=== PATIENT | female | born 1950 | race Caucasian/White ===

== ENCOUNTER → 2019-08-29 17:43 | Outpatient (CLI) | payer MEDICARE, OTHER, SELFPAY ==
--- NOTE | 2019-08-29 18:04 | MRI_ITS ---
STUDY: MRI RIGHT REARFOOT WITHOUT CONTRAST REASON FOR EXAM: Female, 69 years old. Heel spur. Sharp pain for 4 months. TECHNIQUE: Standardized fat and water weighted pulse sequences were obtained in all 3 orthogonal planes. COMPARISON: None. FINDINGS: Acute on chronic moderate/severe plantar fasciitis (sagittal image 14 series 3) with calcaneal bone marrow edema/contusion. No evidence of plantar fascial disruption. Slightly elongated plantar spur. Small Achilles enthesophyte. No acute fracture. No dislocation. No bone destruction. Mild posterior tibialis tenosynovitis. Normal flexor digitorum longus tendon. Normal flexor hallucis longus tendon. Normal peroneus longus and brevis tendons. Normal tibialis anterior tendon. Normal extensor hallucis longus tendon. Normal extensor digitorum longus tendons. Normal distal tibiofibular syndesmotic ligamentous complex. Normal lateral ligamentous complex. Normal subtalar ligaments and sinus tarsi. Mild chronic deltoid ligament sprain. Normal plantar calcaneonavicular (spring) ligament. Normal tibiotalar articulation. Normal talar dome. Normal subtalar articulations. Normal talonavicular articulation. Mild calcaneocuboid arthrosis (sagittal image 7 series 3). Normal navicular-cuneiform articulations. 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
== END ==
PROVIDERS: Family Provider Family Medicine; PCP Family Medicine; Referring Provider Podiatrist; Visit Provider Podiatrist
DX: M72.2 Plantar fascial fibromatosis (principal); M77.31 Calcaneal spur, right foot
CPT/HCPCS: 73718

== ENCOUNTER → 2019-09-09 16:11 | Outpatient (CLI) | payer MEDICARE, OTHER, SELFPAY ==
[2019-09-09 17:51] LABS: AST(SGOT) 21 U/L (15-37); Alanine Aminotransfer ALT/SGPT 23 U/L (13-56); Albumin, Serum 3.6 g/dL (3.2-5.0); Alkaline Phosphatase 112 U/L (45-117); Anion Gap 5 (5-15); BUN 19 mg/dL (7-18); BUN/Creat Ratio 18.6 RATIO (10-20); Calcium,Total 8.6 mg/dL (8.5-10.1); Chloride 110 mmol/L (98-107); Creatinine, Serum 1.02 mg/dL (0.55-1.02); EST Glomerular Filtration Rate 57 mL/min (>60); Est Glom Filt Rate - Afr Amer 69 mL/min (>60); Globulin 3.7 g/dL (2.2-4.2); Glucose 82 mg/dL (74-106); Potassium 4.1 mmol/L (3.5-5.1); Protein, Total 7.3 g/dL (6.4-8.2); Sodium Level 141 mmol/L (136-145)
[2019-09-09 17:58] LABS: Absolute Lymphocyte Count 2.57 X10^3/uL (0.83-4.51); Absolute Neutrophil Count 2.4 X10^3/uL (2.0-7.7); Basophil# 0.03 X10^3/uL; Basophil% 0.5 % (0-1); Eosinophil# 0.11 X10^3/uL; Hematocrit 43.3 % (37-47); Hemoglobin 13.9 g/dL (12.0-15.0); Lymphocyte # 2.57 X10^3/ul (4.0); Lymphocyte % 45.7 % (19-41); Mean Corp Hgb Conc 32.1 g/dL (32-36); Mean Corpuscular Hgb 28.9 pg (27.0-32.0); Mean Platelet Vol. 10.9 fl (6.2-12.0); Monocyte# 0.51 X10^3/uL; Monocyte% 9.1 % (0-10); NRBC Flagged by Analyzer 0 % (0-5); Neutrophil # 2.37 X10^3/uL (2.7-7.7); Neutrophil % 42.2 % (47-70); Platelet Count 166 K/mm3 (150-450); RBC Distribution Width CV 14.4 % (11.6-14.6); RBC Distribution Width SD 47.5 fl (35.1-43.9); Red Blood Count 4.81 M/mm3 (4.2-5.4); White Blood Count 5.6 K/mm3 (4.4-11.0)
== END ==
PROVIDERS: Family Provider Family Medicine; PCP Family Medicine; Referring Provider Family Medicine; Visit Provider Family Medicine
DX: Z01.818 Encounter for other preprocedural examination (principal)
CPT/HCPCS: 36415; 80053; 85025

== ENCOUNTER 2019-09-13 12:30 | Day surgery (SDC) | payer MEDICARE, OTHER, SELFPAY ==
[2019-09-13] VITALS (8 sets, daily range): BP systolic 99–130; BP diastolic 39–72; PULSE 58–64; RESP 15–18; TEMP 36.6–36.7; O2SAT 93–99; BMI 31.2
[2019-09-13] MEDS: Lactated Ringers 1,000 ML 100 ML IV (13:02)
--- NOTE | 2019-09-13 14:00 | RAD_ITS ---
STUDY: X-RAY - RIGHT CALCANEUS REASON FOR EXAM: Female, 69 years old. PLANTAR FASCIOTOMY WITH RESECTION OF INFRACALCANEAL SPUR TECHNIQUE: 1 view(s) of the calcaneus were obtained. COMPARISON: None. FINDINGS: Normal visualized calcaneus. There is a plantar calcaneal spur. There is enthesophyte formation of the posterior superior calcaneus at the site of insertion of the Achilles tendon. There is no demonstrated fracture. RAD/Calcaneus min 2 Views IMPRESSION: Plantar calcaneal spur and enthesophyte as described above, otherwise normal x-ray examination of the calcaneus. Electronically Signed: Sivan Dumont MD at 0:48 EST , Service support ,
--- NOTE | 2019-09-13 14:05 | DCINST_ITS ---
Discharge Diet: Light diet - advance as tolerated Discharge Activity: May not drive while taking narcotic pain medications., Use Walker Weight Bearing Status: No weight bearing - No weightbearing left foot Keep extremity elevated above heart level: Left Leg - Keep left foot elevated with pillows for at least 50 minutes of every hour Call your doctor if your incision/area has: Continuous Slow Oozing, Sudden Increased Bleeding, Increased Redness, Foul Smelling Discharge Call your doctor if you observe: Fever of 101 or Higher, Shortness of breath, Chest pain, Increased palpitations (irregular heartbeat), Calf discomfort, Uncontrolled pain Cleanse incision/area with: Do not get Incision Wet, Keep Dressing Clean & Dry Allergies/Adverse Reactions: Allergies latex Allergy (Verified 09/13/19 12:48) Rash Sulfa (Sulfonamide Antibiotics) Allergy (Verified 09/13/19 12:48) Itching morphine Adverse Reaction (Verified 09/13/19 12:48) confusion Medications to take at Discharge Aspirin [Aspirin, Baby] 81 mg PO DAILY@0800 09/12/19 Atorvastatin Calcium [Lipitor] 20 mg PO DAILY 09/12/19 Metoprolol Tartrate [Lopressor (Beta Jim)] 25 mg PO DAILY 09/12/19 Omeprazole 40 mg PO DAILY 09/12/19 Sertraline HCl [Zoloft] 100 mg PO DAILY 09/12/19 Hydrocodone/Acetaminophen [[place] 5-325 Tablet] 1 - 2 ea PO Q6H PRN PRN 3 Days #24 tab 09/13/19 The following prescriptions were given: Hydrocodone/Acetaminophen [[place] 5-325 Tablet] 1 - 2 ea PO Q6H PRN PRN 3 Days #24 tab PRN Reason: Pain Score 1-10/10 Prescription Printed Primary Care Physician: Shaun Lemus MD [Primary Care Provider] - Test Results: Test results from this visit will be discussed in further detail at your follow- up appointment, if applicable. Please Follow Up With: Denis Fam DPM When: 1 week, sooner if needed
[2019-09-13] MEDS: Cefazolin 2 GM in 0.9% Normal Saline 100 ML IV (14:10)
[2019-09-13] MEDS: Bupivacaine Mpf 0.5% 30 ML VIAL (14:20)
--- NOTE | 2019-09-13 14:50 | RAD_ITS ---
STUDY: X-RAY - RIGHT CALCANEUS REASON FOR EXAM: Female, 69 years old. POST OP PLANTAR FASCIOTOMY W/RESECTION OF INFRACALCANEAL SPUR TECHNIQUE: 2 view(s) of the calcaneus were obtained. COMPARISON: None. FINDINGS: Irregularity involving the inferior aspect of the calcaneus at the site of previous plantar calcaneal spur and suggestion of interval partial resection. Otherwise normal visualized calcaneus. There is enthesophyte formation of the posterior superior calcaneus at the site of insertion of the Achilles tendon. There is no demonstrated fracture. RAD/Calcaneus min 2 Views IMPRESSION: Postoperative changes as described above with suggestion of partial resection at the level of the previously seen plantar calcaneal spur. Electronically Signed: Sivan Dumont MD at 0:48 EST , Service support ,
--- NOTE | 2019-09-13 14:51 | OP.PCM_ITS ---
Report of Operation Date of Procedure: 09/13/19 Pre-Operative Diagnosis: Plantar fasciitis, right. 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 Bryant Type of Anesthesia:: Local MAC Specimen's removed: None Estimated Blood Loss (mL): 1mL Description of Procedure: Indications: This is a 69 year old female with chronic plantar fasciitis and heel spur syndrome on the right foot despite extensive nonsurgical care. She has elected to undergo surgical intervention - plantar fasciotomy with resection of infracalcaneal heel spur. This was discussed with her in detail, reviewed the possible benefits vs risks, goals, expectations, alternative options, and typical healing/post op recovery. The consent forms were reviewed with her, and she freely signed them. All of her questions were answered. No guarantees or wa rranties were given nor implied. Operative Procedure: The patient was brought back into the operating room and was placed on the operating room table in the supine position. She was carefully secured to the operating room table with a safety belt around the waist. A time out was performed and the patient was properly identified and the surgical plan was confirmed. The patient received 2 grams of IV Cephazolin for antibiotic prophylaxis. A well padded pneumatic tourniquet was applied around the patient's right ankle. The patient received MAC anesthesia per the anesthesiologist, and a total of 20mL of 0.5% Bupivacaine plain was given as a regional nerve block around the heel surgical site after the overlying skin was cleansed with 70% Isopropyl alcohol. The right foot was scrubbed, prepped, draped in the usual aseptic fashion. The right foot was elevated for 3 minutes and the ankle pneumatic tourniquet was inflated to 250mmHg. The infracalcaneal spur was visualized on intra operative f luoroscopy, image was saved. A skin incision was made to the medial hindfoot at the level of the plantar fascia and infracalcaneal spur, careful dissection was completed down through the subcutaneous tissue layer. A plane was created superiorly and inferiorly around the plantar fascia and the medial 50% of the plantar fascia was released via a plantar fasciotomy. It was noted there was significant thickening of the plantar fascia with fibrosis consistent with chronic plantar fasciitis. The infracalcaneal spur was felt, and was carefully resected using a powered rasp. Resection of the infracalcaneal spur was confirmed using intraoperative fluoroscopy. Images pre and post infracalcaneal spur resection were saved. The site was flushed out with copious amounts of normal saline solution. The skin was reapproximated using 3-0 Nylon. The pneumatic tourniquet was deflated (total tourniquet time was 21 minutes), and there was immediate return of warmth and perfusion to the foot and to all toes on the foot with normal temperature gradient and CFT < 2 seconds to all toes. Hemostasis was achieved. A dressing was applied which consisted of Betadine soaked adaptic, 4x4 gauze, Kerlix and paola bandage, being sure to apply it not to tight. The patient tolerated the above operative procedure well at the anesthesia well with no complication. The patient was transported to the recovery room with vital signs stable and in good condition. Post operative orders were placed. Post operative instructions were reviewed and dispensed verbal and written. No weightbearing right foot, keep right foot elevated for at least 50 minutes of every hour, keep dressing clean, dry and intact. Prescription for Siloam was provided for post operative pain control. She is to follow up within 1 week or sooner if needed. Grafts/Implants Used: None - Complications None
== END 2019-09-13 16:14 | disposition home or self-care (01) ==
LOC: SDC 12:31 → AC 12:32
PROVIDERS: Family Provider Family Medicine; PCP Family Medicine; Referring Provider Podiatrist; Visit Provider Podiatrist
PROC: (CPT 28008; principal; 2019-09-13 13:45)
DX: M72.2 Plantar fascial fibromatosis (principal); M77.31 Calcaneal spur, right foot; I27.20 Pulmonary hypertension, unspecified; K58.9 Irritable bowel syndrome, unspecified; Z79.899 Other long term (current) drug therapy; Z79.82 Long term (current) use of aspirin; K21.9 Gastro-esophageal reflux disease without esophagitis; E78.00 Pure hypercholesterolemia, unspecified; F41.9 Anxiety disorder, unspecified; F32.9 Major depressive disorder, single episode, unspecified
CPT/HCPCS: 28119; 73650; 76000; J7120; J2405

== ENCOUNTER → 2020-05-20 10:45 | Outpatient (CLI) | payer MEDICARE, OTHER, SELFPAY ==
[2019-09-13 12:48] VITALS: BMI 31.2
--- NOTE | 2020-05-20 10:52 | BI_ITS ---
MAMMOGRAPHY - BILATERAL SCREENING REASON FOR EXAM: Female, 70 years old. Routine annual screening examination. PERTINENT HISTORY: Non-contributory. TECHNIQUE: Digital bilateral breast fady (3D mammographic acquisition) in the CC and MLO projections. 2-D mediolateral oblique (MLO) and craniocaudad (CC) views of both breasts were obtained. CAD: Full Field Digital Mammography with Computer Added Detection was performed. COMPARISON: Comparison is made with prior abdomen examination dated 01/09/2019. FINDINGS: Breast Composition: The breasts are almost entirely fatty. There are no dominant masses or suspicious calcifications. Stable small benign appearing bilateral axillary lymph nodes. No other significant abnormalities are identified. There has been no significant change since the prior study. BI/SCREEN MAMM (CAD) W/FADY BILAT IMPRESSION: Stable bilateral screening mammogram. Yearly follow-up mammogram recommended. (A) ASSESSMENT CATEGORY: BIRADS Category 2: Benign. A letter regarding these results will be sent to the patient by the facility within 30 days. Approximately 10% of breast cancers are not detected by mammography. A normal mammogram should not delay biopsy of a clinically suspicious abnormality. [id number] Electronically Signed: Tim Bhardwaj, at 12:37 EDT , Service support ,
== END ==
PROVIDERS: PCP Family Medicine; Referring Provider Family Medicine; Visit Provider Family Medicine
DX: Z12.31 Encounter for screening mammogram for malignant neoplasm of breast (principal)
CPT/HCPCS: 77063; 77067

== ENCOUNTER → 2020-12-30 | Outpatient (CLI) | payer MEDICARE, SELFPAY ==
[2019-09-13 12:48] VITALS: BMI 31.2
== END | disposition home or self-care (01) ==
LOC: LABSPEC 15:23
PROVIDERS: PCP Family Medicine; Referring Provider Internal Medicine Gastroenterology; Visit Provider Internal Medicine Gastroenterology
DX: Z11.52 Encounter for screening for COVID-19 (principal)
CPT/HCPCS: 87635; C9803; U0002

== ENCOUNTER → 2023-01-12 | Outpatient (CLI) | payer MEDICARE, SELFPAY ==
--- NOTE | 2023-01-12 15:25 | BD_ITS ---
STUDY: DUAL ENERGY X-RAY ABSORPTIOMETRY / DXA REASON FOR EXAM: Female, 72 years old. BASE LINE PRE AI THERAPY TECHNIQUE: Bone Mineral Density (BMD) measurements of lumbar spine and bilateral hips were obtained. COMPARISON: None. FINDINGS: Lumbar Spine (L1-L4): g/cm2 (1.168) / T-score (1.4) / Z-score (3.5) Findings are suggestive of normal bone density with a low fracture risk. Left Femur Total: g/cm2 (0.939) / T-score (0.0) / Z-score (1.5) Left Femoral Neck: g/cm2 (0.749) / T-score (-0.9) / Z-score (0.9) Right Femur Total: g/cm2 (0.901) / T-score (-0.3) / Z-score (1.2) Right Femoral Neck: g/cm2 (0.791) / T-score (-0.5) / Z-score (1.3) BD/Dexa Bone Density Study IMPRESSION: The patient is considered normal as outlined below according to World [place] Organization (WHO) criteria with a low fracture risk. Reference Information: The T-score is the number of standard deviations above or below the standard which is normal for young adults at their peak bone mineral density. The World Health Organization (WHO) interprets the T-scores as follows: Above -1 Normal bone density Between -1 and -2.5 Osteopenia Equal to / or below -2.5 Osteoporosis As a practical clinical guideline, osteopenia may be graded as follows: Mild -1 through -1.5 Moderate -1.6 through -2.0 Severe -2.1 through -2.4 The Z-score is the number of standard deviations above or below age-matched controls. A Z-score of less than -1.5 would be considered abnormal. References: 1. NIH Osteoporosis and Related Bone Diseases www osteo.org 2. International Society for Clinical Densitometry www iscd.org 3. National Osteoporosis Foundation www nof.org Electronically Signed: Tim Bhardwaj MD at 15:21 EDT ,
== END | disposition home or self-care (01) ==
PROVIDERS: PCP Family Medicine; Referring Provider Internal Medicine Hematology & Oncology; Visit Provider Internal Medicine Hematology & Oncology
DX: Z78.0 Asymptomatic menopausal state (principal)
CPT/HCPCS: 77080

== ENCOUNTER → 2023-05-26 | Outpatient (CLI) | payer MEDICARE, SELFPAY ==
--- NOTE | 2023-05-26 09:01 | BI_ITS ---
MAMMOGRAPHY - UNILATERAL DIAGNOSTIC: LEFT BREAST REASON FOR EXAM: Female, 73 years old. 2 month history of left breast lump. PERTINENT HISTORY: Personal history of breast cancer. Prior right mastectomy. TECHNIQUE: Digital unilateral breast neal (3D mammographic acquisition) in the CC and MLO projections. 2-D mediolateral oblique (MLO) and craniocaudad (CC) views of both breasts were obtained. CAD: Full Field Digital Mammography with Computer Added Detection was performed. COMPARISON: Comparison is made with prior study dated May 20, 2020. FINDINGS: Breast Composition: The breasts are almost entirely fatty. There are no dominant masses or suspicious calcifications. No other significant abnormalities are identified. There has been no significant change since the prior study. BI/DIAG MAMM W/CAD, UNILAT IMPRESSION: Stable unilateral diagnostic mammogram. With the patient''s history of a palpable lump in the slightly upper anterior medial aspect of the left breast, correlation with recommended. ASSESSMENT CATEGORY: BIRADS Category 0: Incomplete. Need additional imaging evaluation. A letter regarding these results will be sent to the patient by the facility within 30 days. Approximately 10% of breast cancers are not detected by mammography. A normal mammogram should not delay biopsy of a clinically suspicious abnormality. Electronically Signed: Tim Bhardwaj MD at 10:47 EDT ,
--- NOTE | 2023-05-26 09:01 | US_ITS ---
STUDY: ULTRASOUND BREAST - LEFT REASON FOR EXAM: Female, 73 years old. Palpable lump left breast. TECHNIQUE: Axial and longitudinal images of the LEFT breast were performed with a high resolution ultrasound transducer. # OF IMAGES: 13 COMPARISON: Comparison is made with prior mammogram dated May 20, 2020 and May 26, 2023. FINDINGS: LEFT Breast: The upper medial aspect of the left breast was examined by ultrasound. No sonographic abnormality is seen. US/Breast Limited Unilateral IMPRESSION: No sonographic abnormality is seen. ASSESSMENT CATEGORY: BIRADS Category 1: Negative. A letter regarding these results will be sent to the patient by the facility within 30 days. Electronically Signed: Tim Bhardwaj MD at 14:05 EDT ,
== END | disposition home or self-care (01) ==
LOC: OPBI 09:00
PROVIDERS: PCP Family Medicine; Referring Provider Nurse Practitioner Family; Visit Provider Nurse Practitioner Family
DX: C50.911 Malignant neoplasm of unspecified site of right female breast (principal); N63.20 Unspecified lump in the left breast, unspecified quadrant; R92.8 Other abnormal and inconclusive findings on diagnostic imaging of breast
CPT/HCPCS: 76642; 77061; 77065; G0279

== ENCOUNTER → 2024-05-27 | Outpatient (CLI) | payer MEDICARE, SELFPAY ==
--- NOTE | 2024-05-27 14:13 | BI_ITS ---
MAMMOGRAPHY - UNILATERAL SCREENING: LEFT BREAST REASON FOR EXAM: Female, 74 years old. Routine annual screening examination (unilateral). PERTINENT HISTORY: Personal history of breast cancer. Prior right mastectomy. TECHNIQUE: Digital unilateral breast fady (3D mammographic acquisition) in the CC and MLO projections. 2-D mediolateral oblique (MLO) and craniocaudad (CC) views of both breasts were obtained. CAD: Full Field Digital Mammography with Computer Added Detection was performed. COMPARISON: Comparison is made with prior study dated May 26, 2023 and May 20, 2020. FINDINGS: Breast Composition: The breasts are almost entirely fatty. There are no dominant masses or suspicious calcifications. No other significant abnormalities are identified. There has been no significant change since the prior study. BI/SCREEN MAMM (CAD) W/FADY UNI L IMPRESSION: Stable unilateral screening mammogram. Yearly follow-up mammogram recommended. (A) ASSESSMENT CATEGORY: BIRADS Category 1: Negative. A letter regarding these results will be sent to the patient by the facility within 30 days. Approximately 10% of breast cancers are not detected by mammography. A normal mammogram should not delay biopsy of a clinically suspicious abnormality. [id number] Electronically Signed: Tim Bhardwaj MD at 8:24 EDT ,
== END | disposition home or self-care (01) ==
LOC: OPBI 14:13
PROVIDERS: PCP Family Medicine; Referring Provider Internal Medicine Hematology & Oncology; Visit Provider Internal Medicine Hematology & Oncology
DX: Z12.31 Encounter for screening mammogram for malignant neoplasm of breast (principal); Z85.3 Personal history of malignant neoplasm of breast
CPT/HCPCS: 77063; 77067

== ENCOUNTER → 2024-12-18 | Outpatient (CLI) | payer MEDICARE, SELFPAY ==
--- NOTE | 2024-12-18 17:32 | CT_ITS ---
PROCEDURE: CHEST WITH CONTRAST 12/18/2024 REASON FOR EXAM: EXERTIONAL DYSPNEA; H/O BREAST CANCER TECHNIQUE: Prone and supine chest CT with intravenous contrast, high resolution CT (HRCT) protocol. Coronal and Sagittal reconstruction series were provided. CONTRAST: Isovue 370 VOLUME: 69 mL One or more dose reduction techniques were used (e.g., Automated exposure control, adjustment of the mA and/or kV according to patient size, use of iterative reconstruction technique). RADIATION DOSE SUMMARY: CTDlvol: 18.2 mGy DLP: 663.68 mGycm COMPARISON: Limited comparison with prior outside examination dated October 24, 2022. The images were not of good quality. FINDINGS: Hardware: Prior midline sternotomy. The patient is status post right mastectomy. Lymph nodes: No mediastinal hilar or axillary lymphadenopathy. Heart and Vasculature: Coronary artery calcifications are noted. Lungs and Airways: The lungs are normally expanded and clear. No septal thickening nodules or abnormal pulmonary opacities. Pleura: Unremarkable Upper Abdomen: Unremarkable Bones: Bone windows are unremarkable. CT/Chest WITH Contrast IMPRESSION: Coronary artery calcification (CAC) is is present No acute abnormality is seen. Reading Location: [place] [id number]
== END | disposition home or self-care (01) ==
LOC: CT 17:32
PROVIDERS: PCP Family Medicine; Referring Provider Nurse Practitioner Family; Visit Provider Nurse Practitioner Family
DX: R06.09 Other forms of dyspnea (principal); Z85.3 Personal history of malignant neoplasm of breast
CPT/HCPCS: 71260; Q9967

== ENCOUNTER → 2025-06-04 | Outpatient (CLI) | payer MEDICARE, SELFPAY ==
--- NOTE | 2025-06-04 14:41 | BD_ITS ---
PROCEDURE: DEXA BONE DENSITY STUDY 06/04/2025 REASON FOR EXAM: SCREENING FOR OSTEOPORSIS F, age 75 y/o . Postmenopausal. TECHNIQUE: Procedure Code: BDDBD Modality: DX Procedure: DEXA BONE DENSITY STUDY COMPARISON: January 12, 2023 FINDINGS: BMD and T-SCORES Lumbar spine: 1.073 g/cm2, T-score 0.5 Levels: L1 through L4 Change from prior: Loss of 8.2%. Left femoral neck: 0.710 g/cm2, T-score -1.3 Femoral neck comparison data not recommended for monitoring change. Left total hip: 0.921 g/cm2, T-score -0.2 Change from prior: Loss of 1.9%. Right femoral neck: 0.715 g/cm2, T-score -1.2 Femoral neck comparison data not recommended for monitoring change. Right total hip: 0.868 g/cm2, T-score -0.6 Change from prior: Loss of 3.7%. The World Health Organization has defined the following categories based on bone density: Normal bone density: T-score equal to or greater than -1.0 Osteopenia: T-score between -1.0 and -2.5 Osteoporosis: T-score equal to or less than -2.5 FRAX (or Comparable) Fracture Risk Assessment: 10 Year Probability of Fracture: Major Osteoporotic Fracture: 9.4% Hip Fracture: 1.4% (Note: FRAX is not to be reported in setting of normal range bone density, osteoporosis on DEXA, known history of osteoporosis, prior osteoporotic hip or vertebral fracture, or for any patient undergoing pharmacological treatment for bone loss.) The National Osteoporosis Foundation (NOF) recommends pharmacological treatment for patients with a FRAX 10-year risk of 3% or higher for a hip fracture, or 20% or higher for a major osteoporotic fracture, to prevent osteoporosis and reduce fracture risk. The patient does meet the pharmacological treatment recommendations for prevention of osteoporosis. BD/Dexa Bone Density Study IMPRESSION: OSTEOPENIA. Recommend follow-up as clinically warranted. Reading Location: [place] [id number]
--- NOTE | 2025-06-04 16:00 | BI_ITS ---
EXAM: SCREEN MAMM (CAD) W/FADY UNI L DATE: 06/04/2025 CLINICAL HISTORY: F, Age 75 y/o , SCREENING Personal history of breast cancer. Status post right mastectomy. TECHNIQUE: Procedure Code: [id number] Modality: MG Procedure: SCREEN MAMM (CAD) W/FADY UNI L COMPARISON: Prior exam(s) dated May 27, 2024.. FINDINGS: TISSUE DENSITY: The breasts are almost entirely fatty. Bilateral Breast Mammographic Findings: No significant masses, calcifications or other abnormalities are identified. No suspicious masses, areas of developing architectural distortion, or suspicious calcifications. There has been no significant interval change. BI/SCREEN MAMM (CAD) W/FADY UNI L IMPRESSION: Stable bilateral screening mammogram. OVERALL FINAL ASSESSMENT BI-RADS 1: NEGATIVE. RECOMMENDATION: Routine annual follow-up in 1 Year A letter with findings and recommendations will be mailed to the patient. Reading Location: [place] [id number]
== END | disposition home or self-care (01) ==
LOC: OPBD 14:26
PROVIDERS: PCP Family Medicine; Referring Provider Nurse Practitioner Family; Visit Provider Nurse Practitioner Family
DX: Z12.31 Encounter for screening mammogram for malignant neoplasm of breast (principal); Z78.0 Asymptomatic menopausal state; Z13.820 Encounter for screening for osteoporosis
CPT/HCPCS: 77063; 77067; 77080

== ENCOUNTER → 2025-08-13 | Outpatient (CLI) | payer MEDICARE, SELFPAY ==
[2025-08-13 15:41] LABS: AST(SGOT) 22 U/L (<=31); Alanine Aminotransfer ALT/SGPT 15 U/L (<=34); Albumin, Serum 3.8 g/dL (3.4-4.8); Alkaline Phosphatase 111 U/L (35-104); Bilirubin, Direct 0.22 mg/dL (0.00-0.30); Cholesterol 142 mg/dL (<=200); Globulin 2.7 g/dL (2.2-4.2); Low Density Lipoprotein Calc. 62 mg/dL; Triglycerides 80 mg/dL; Very Low Density Lipoprotein 16 mg/dL (5-40); cholesterol:hdl ratio screen 2.19
== END | disposition home or self-care (01) ==
LOC: LAB 13:48
PROVIDERS: PCP Family Medicine; Referring Provider Internal Medicine Cardiovascular Disease; Visit Provider Internal Medicine Cardiovascular Disease
DX: E78.5 Hyperlipidemia, unspecified (principal)
CPT/HCPCS: 36415; 80061; 80076

== ENCOUNTER → 2025-09-03 | Outpatient (CLI) | payer MEDICARE, SELFPAY ==
--- NOTE | 2025-09-03 06:29 | ECHOD_ITS ---
Reason For Study : PROSTHETIC HEART VALVE Procedure This was a 2D Doppler, Color Flow transthoracic echocardiogram. Exam performed in department. Left Ventricle Normal LV size. The left ventricular ejection fraction is 55 %. Stage 1 diastolic dysfunction. No regional wall motion abnormalities noted. Right Ventricle Normal RV size. Normal systolic function. Atria The left atrium is mildly enlarged. Normal right atrium. Tricuspid Valve Normal tricuspid valve. Mild (1+) tricuspid valve insufficiency. Pulmonary artery systolic pressure is 24 mmHg. Aortic Valve Mean aortic valve gradient 8 mmHg. Bioprosthetic aortic valve. Pulmonic Valve Normal pulmonic valve. Great Vessels Normal aortic root. The pulmonary artery is normal size. Normal inferior vena cava. Pericardium/Pleural No pericardial effusion. MMode/2D Measurements & Calculations LVIDd: 4.7 cm IVSd: 1.0 cm Ao root diam: 3.4 cm LVIDs: 3.3 cm LVPWd: 0.98 cm FS: 29.3 % LAV(MOD-bp): 68.9 ml LVAd ap4: 31.5 cm2 LVAd ap2: 28.7 cm2 LAV(MOD-bp) Indexed: 33.0 ml/m2 LVLd ap4: 8.0 cm LVLd ap2: 7.6 cm LAV(MOD-sp2): 67.4 ml EDV(MOD-sp4): 101.1 ml EDV(MOD-sp2): 89.0 ml LAV(MOD-sp4): 67.0 ml EDV(sp4-el): 105.7 ml EDV(sp2-el): 92.2 ml LVAs ap4: 19.7 cm2 LVAs ap2: 17.7 cm2 LVLs ap4: 7.0 cm LVLs ap2: 6.5 cm ESV(MOD-sp4): 46.6 ml ESV(MOD-sp2): 40.8 ml ESV(sp4-el): 47.1 ml ESV(sp2-el): 41.1 ml EF(MOD-sp4): 54.0 % EF(MOD-sp2): 54.1 % EF(sp4-el): 55.4 % SV(MOD-sp4): 54.5 ml SV(MOD-sp2): 48.2 ml EDV(MOD-bp): 97.1 ml ESV(MOD-bp): 43.9 ml SI(MOD-sp4): 26.1 ml/m2 SI(MOD-sp2): 23.1 ml/m2 EF(MOD-bp): 54.8 % SV(sp4-el): 58.6 ml LA dimension(2D): 3.2 cm LA A4 area: 21.6 cm2 RA A4 area: 13.7 cm2 TAPSE: 1.6 cm Time Measurements MV dec time: 0.23 sec Doppler Measurements & Calculations MV E max abdias: 58.1 cm/sec Lat Peak E' Abdias: 7.9 cm/sec Med Peak E' Abdias: 5.9 cm/sec MV A max abdias: 112.5 cm/sec E/E' lat: 7.3 E/E' med: 9.9 MV E/A: 0.52 MV V2 max: 111.1 cm/sec MV P1/2t max abdias: 71.7 cm/sec Ao V2 max: 184.0 cm/sec MV max P.9 mmHg MV P1/2t: 51.0 msec Ao max P.5 mmHg MV V2 mean: 54.5 cm/sec Ao V2 mean: 131.3 cm/sec MV mean P.4 mmHg MV dec slope: 412.0 cm/sec2 Ao mean P.9 mmHg MV V2 VTI: 27.8 cm MVA(P1/2t): 4.3 cm2 Ao V2 VTI: 39.3 cm AV (velocity ratio): 0.55 LV V1 max: 90.7 cm/sec PA V2 max: 72.8 cm/sec TR max abdias: 231.2 cm/sec LV V1 max P.3 mmHg TR max P.4 mmHg LV V1 mean P.2 mmHg LV V1 mean: 70.7 cm/sec LV V1 VTI: 21.6 cm ECHO/Echo Complete Interpretation Summary Normal LV size. The left ventricular ejection fraction is 55 %. Stage 1 diastolic dysfunction. Mild (1+) tricuspid valve insufficiency. Mean aortic valve gradient 8 mmHg. The global longitudinal strain is moderately abnormal. The global longitudinal strain = -14.2% (abnormal). Ordering Physician: Vladimir^Jose^^^ Referring Physician: Shaun Lemus Performed By: eZe Garrett, RDCS, RVT
--- OUTSIDE RECORDS SUMMARY | 2025-09-03 06:33 | XMS RPT_ITS | CCD ---
Author Organization [facility] Care Team Providers Care Edge Cutter Name Role Phone Dr. Nohemi Lemus Primary Care Provider Dr. Nohemi Lemus Referring Provider Dr. Angel Frost Attending Provider Gasper AUTOM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, AUTOM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-C Tina Attending Provider NOHEMI GRAHAM MD Attending Unavailable YAMILETH GONZALEZ, DR PADILLA Consulting Unavailable DR NOHEMI LEMUS MD Primary Care Nohemi Uribe MD Unavailable Neurology Provider Unavailable Unavailable Clara GONZALEZ, Dr. Pete Shay Unavailable Dr. Gretta Munguia MD Unavailable [facility] ([place]) Unavailable Dr. Carlos Thompson MD Unavailable Dr. Denis Fam Unavailable Brie ALANIS, Albina Unavailable Unavailable Cindy Ewing MD Unavailable Mojgan STERLING, Sindy Unavailable Tanmay CHIN, Juanis Redding Unavailable Hernandez Murray MD Unavailable Bill STERLING, Susana Short Unavailable Unavailable Dany STERLING, Demetria Unavailable Unavailable Ravi CHIN, Jaymie Farooq Unavailable Izabela CHIN, Brooks Li Unavailable Zhane Gurrola Unavailable Unavailable Izabela ALANIS, Aaliyah Morales Unavailable Unavail able Marya Simmons LPN Unavailable Unavailable Arnulfo ALANIS, Jaymie Patel Unavailable Unavaila ble Marthey GENERAL CAR SUPERVISOR YARD, Audrey Unavailable Unavailable Nathan GENERAL CAR SUPERVISOR YARD, Elfego Unavailable Unavailable John ALANIS, Wanda Y Unavailable Unavailable Shun CHIN, Jessica Redding Unavailable Richert GENERAL CAR SUPERVISOR YARD, Zuleyka L Unavailable Unavailab le Gasper GENERAL CAR SUPERVISOR YARD, Cindy M Unavailable Unavailab le Vanaman, Celia A Unavailable Unavailable Vess GENERAL CAR SUPERVISOR YARD, Netreasuree L Unavailable Unavailable Wengerd GENERAL CAR SUPERVISOR YARD, Sarah Unavailable Unavailabl e Hornitos GENERAL CAR SUPERVISOR YARD, Charlotte N Unavailable Unavaila ble Zaugg GENERAL CAR SUPERVISOR YARD, Norma Unavailable Unavailable Unavailable Unavailable Orthopedic Provider Unavailable Unavailable Allan GONZALEZ, Dr. Dunn Primary Care Provider Allan GONZALEZ, Dr. Dnun Referring Provider Gasper AUTOM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-C, Tina Attending Provider Danielle Awan Attending Provider Vladimir GONZALEZ, Dr. Garcia Attending Provider Dr. Angel Frost MD Attending Provider Dr. Angel Frost MD Referring Provider Gasper AUTOM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-C, Tina Referring Provider Norma Hancock Unavailable Unavailable Dr. Nohemi Lemus MD Primary Care Physician Dr. Nohemi Lemus MD Referring Provider Gasper AUTOM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-C, Tina Attending Physician Nohemi Lemus Primary Care Unavailable VaccNohemi ochoa Referring Unavailable Gasper AUTOM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, Tina Attending Unavailable Nohemi Lemus Referring Unavailable Allan, Nohemi Primary Care Unavailable Gasper AUTOM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, Tina Attending Unavailable VaccariNohemi poole Referring Unavailable Vaccariello, Nohemi Primary Care Unavailable Gasper AUTOM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, Tina Attending Unavailable Jose Gilbert Attending Unavailable Noheim Lemus Primary Care Unavailable VaccNohemi ochoa Referring Unavailable Danielle Villeda Attending Unavailable VaccNohemi ochoa Primary Care Unavailable Vaccdon, Nohemi Primary Care Unavailable Isckarus, Mansour Attending Unavailable Isckarus, Mansour Referring Unavailable Gasper AUTOM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, Tina Referring Unavailable Vaccariello, Nohemi Primary Care Unavailable Gasper AUTOM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, Tina Attending Unavailable Gasper AUTOM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, Tina Referring Unavailable Vaccariello, Nohemi Primary Care Unavailable Gasper AUTOM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, Tina Attending Unavailable Gasper AUTOM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-C, Tina Referring Provider VACCARIELLO, NOHEMI Consulting Unavailable DANIELLE VILLEDA Admitting Unavailable DANIELLE VILLEDA Attending Unavailable DANIELLE VILLEDA Primary Care Unavailable PROVIDER, UNKNOWN Consulting Unavailable PROVIDER, UNKNOWN Consulting Unavailable PROVIDER, UNKNOWN Consulting Unavailable ANABEL, THERESA L Primary Care Unavailable VACCARIELLO, NOHEMI Consulting Unavailable ANABEL, THERESA L Admitting Unavailable ANABEL, THERESA L Attending Unavailable PROVIDER, UNKNOWN Consulting Unavailable PROVIDER, UNKNOWN Consulting Unavailable PROVIDER, UNKNOWN Consulting Unavailable VACCARIELLO, NOHEMI Attending Unavailable VACCARIELLO, NOHEMI Consulting Unavailable VACCARIELLO, NOHEMI Primary Care Unavailable VACCARIELLO, NOHEMI Admitting Unavailable PROVIDER, UNKNOWN Consulting Unavailable PROVIDER, UNKNOWN Consulting Unavailable PROVIDER, UNKNOWN Consulting Unavailable GASPER, TINA R Referring Unavailable VACCARIELLO, NOHEMI Consulting Unavailable ANABEL, THERESA L Admitting Unavailable ANABEL, THERESA L Primary Care Unavailable ANABEL, THERESA L Attending Unavailable PROVIDER, UNKNOWN Consulting Unavailable PROVIDER, UNKNOWN Consulting Unavailable PROVIDER, UNKNOWN Consulting Unavailable VACCARIELLO, NOHEMI Admitting Unavailable VACCARIELLO, NOHEMI Attending Unavailable VACCARIELLO, NOHEMI Consulting Unavailable VACCARIELLO, NOHEMI Primary Care Unavailable PROVIDER, UNKNOWN Consulting Unavailable PROVIDER, UNKNOWN Consulting Unavailable PROVIDER, UNKNOWN Consulting Unavailable GRETTA MUNGUIA Attending Unavailable MUNGUIA, GRETTA Primary Care Unavailable GRETTA MUNGUIA Admitting Unavailable VACCARIELLO, NOHEMI Consulting Unavailable PROVIDER, UNKNOWN Consulting Unavailable PROVIDER, UNKNOWN Consulting Unavailable PROVIDER, UNKNOWN Consulting Unavailable Allergies Allergy Classification Reported Allergen(s) Allergy Type Date of Onset Reaction(s) Facility Opioid Agonists (1 source) Morphine Drug Allergy [facility] Unclassified (1 source) [facility] Unclassified (1 source) [facility] (10 sources) Latex; Translations: [LATEX] Allergy to substance 3 Rash [facility] (20 sources) Morphine Drug Allergy 3 confusion [facility] (5 sources) Sulfonamides (Antibiotic) Allergy to substance 3 Itching [facility] (20 sources) Sulfonamides (Antibiotic) [facility] (1 source[facility] (1 source[facility] (1 source) [facility] (1 source[facility] (1 source) [facility] (1 source) [facility] (1 source) [facility] (1 source) [facility] (1 source) [facility] (1 source[facility] (1 source) [facility] (1 source) [facility] (1 source[facility] (1 source) [facility] (1 source) [facility] (1 source) [facility] (1 source) [facility] (1 source) [facility] (1 source) [facility] (1 source) [facility] (1 source[facility] (1 source) [facility] (1 source) [facility] (1 source[facility] (1 source) [facility] (1 source[facility] (1 source) [facility] (1 source) [facility] (1 source[facility] (1 source[facility] (1 source) [facility] (1 source) [facility] (1 source[facility] (1 source) [facility] (1 source) [facility] (1 source) [facility] (1 source) [facility] (1 source[facility] (1 source) [facility] (1 source[facility] (1 source) [facility] (1 source) [facility] (1 source[facility] (1 source) [facility] (1 source[facility] (1 source[facility] (1 source[facility] (1 source) [facility] (1 source[facility] (1 source) [facility] (1 source[facility] (1 source[facility] (1 source) [facility] (1 source[facility] (1 source[facility] (1 source[facility] (1 source[facility] (1 source[facility] (1 source[facility] (1 source[facility] (1 source) [facility] (1 source[facility] (1 source[facility] (1 source) [facility] (1 source[facility] (1 source[facility] (1 source[facility] (1 source[facility] (1 source[facility] (1 source[facility] (1 source[facility] (1 source[facility] (1 source[facility] (1 source[facility] (1 source[facility] (1 source[facility] (1 source) [facility] (1 source[facility] (1 source[facility] (1 source[facility] (1 source[facility] (1 source[facility] (1 source[facility] (1 source) [facility] (1 source[facility] (1 source) [facility] (1 source[facility] (1 source[facility] (1 source[facility] (1 source[facility] (1 source) [facility] (1 source[facility] (1 source[facility] (1 source[facility] (1 source[facility] (1 source[facility] (1 source) [facility] (1 source[facility] (1 source[facility] (1 source) [facility] (1 source[facility] (1 source) [facility] (1 source) Latex Drug allergy (disorder) [address] [place] [address] (1 source) Morphine Drug Allergy 5 [facility] (1 source) Sulfonamides (Antibiotic) Drug allergy (disorder) [facility] (1 source) Morphine Drug Allergy [facility] (1 source) Sulfonamides (Antibiotic) Drug allergy (disorder) [facility] Medications Current Medications Medication Drug Class(es) Dates Sig (Normalized) Sig (Original) amoxicillin 875 mg / clavulanate 125 mg oral tablet (3 sources) Penicillin-class Antibacterial Start: 04-28-2025 aspirin 81 mg chewable tablet (20 sources) Platelet Aggregation Inhibitor, Nonsteroidal Anti-inflammatory Drug Start: 09-12-2019 take 1 tablet by mouth once daily atorvastatin 40 mg oral tablet (20 sources) HMG-CoA Reductase Inhibitor Start: 06-04-2025 take 1 tablet by mouth once daily Start: 06-24-2024 Start: 03-29-2024 Start: 01-01-2024 Start: 10-04-2023 Start: 07-28-2022 take 1 tablet by ilya once daily Atorvastatin Calcium 80 MG Oral Tablet ; 1 (one) Tablet daily for 0 days Quantity: 90 {Tablet} Refills: 3 Ordered: 28-Jul-2022 MD Nohemi Lemus Start: 28-Jul-2022 Start: 09-12-2019 End: 06-04-2025 take 1 tablet by mouth once daily Atorvastatin 20 MG tablet Discontinued 20 mg PO DAILY September 12, 2019 1:00am June 04, 2025 1:33pm Start: 08-21-2013 End: 09-24-2014 take 1 tablet by mouth once daily at bedtime LIPITOR, 20MG (Oral Tablet) ; 1 (one) Tablet qhs for 0 days Quantity: 90 {Tablet} Refills: 3 Ordered: 24-Sep-2014 ASHER Ulrich Start: 21-Aug-2013 End: 24-Sep-2014 Status: Discontinued betamethasone 0.5 mg/ml / clotrimazole 10 mg/ml topical cream (20 sources) Azole Antifungal, Corticosteroid Start: 02-07-2024 calcium carbonate 1500 mg oral tablet (4 sources) Start: 03-27-2023 take 1 tablet by mouth once daily cholecalciferol 0.05 mg oral capsule (4 sources) Vitamin D Start: 03-27-2023 take 1 capsule by mouth once daily 1 ml evolocumab 140 mg/ml auto-injector (11 sources) PCSK9 Inhibitor Start: 11-29-2024 ezetimibe 10 mg oral tablet (20 sources) Dietary Cholesterol Absorption Inhibitor Start: 10-27-2022 take 1 tablet by mouth once daily 24 hr isosorbide mononitrate 30 mg extended release oral tablet (20 sources) Nitrate Vasodilator Start: 12-05-2024 End: 12-30-2024 Start: 10-24-2022 End: 12-05-2024 take 1 tablet by mouth once daily, then take 1 tablet by mouth every twenty-four hours Isosorbide Mononitrate 30 mg tablet extended release 24 hr Discontinued 30 mg PO DAILY October 24, 2022 1:00am December 05, 2024 1:28pm loperamide hydrochloride 2 mg oral capsule (20 sources) Opioid Agonist Start: 10-24-2022 take 1 capsule by mouth every six hours as needed take 2 tablets by mo ut three times daily Loperamide HCl 2 MG Oral Capsule ; 2 tablets three times daily (2 MG) Status: Inactive loperamide 2 mg tablet ; PRN (2 mg) metoprolol tartrate 25 mg oral tablet (20 sources) beta-Adrenergic Jim Start: 09-12-2019 take 1 tablet by mouth once daily take 0.5 tablet by mouth twice d aily Metoprolol Tartrate 25 MG Oral Tablet ; 0.5 tablet two times daily (25 MG) Status: Inactive nitroglycerin 0.3 mg sublingual tablet (20 sources) Nitrate Vasodilator Start: 05-29-2024 omeprazole 40 mg delayed release oral capsule (20 sources) Proton Pump Inhibitor Start: 07-28-2022 Omeprazo le 40 MG Oral Capsule Delayed Release ; [address] daily for 0 days Quantity: 90 {Capsule} Refills: 3 Ordered: 28-Jul-2022 MD Nohemi Lemus Start: 28-Jul-2022 Start: 09-12-2019 take 1 capsule by mouth once d aily sertraline 100 mg oral table t (20 sources) Serotonin Reuptake Inhibitor Start: 12-30-2024 Start: 09-12-2019 End: 11-29-2024 take 1 tablet by mouth once daily Sertraline 100 MG tablet Discontinued 100 mg PO DAILY September 12, 2019 1:00am November 29, 2024 2:05pm Completed/Discontinued Medications Medication Drug Class(es) Dates Sig (Normalized) Sig (Original) acetaminophen 325 mg / HYDROcodone bitartrate 5 mg oral tablet (5 sources) Opioid Agonist Start: 09-13-2019 End: 09-16-2019 Hydrocodone-Acetami nophen 1 EACH tablet Discontinued 1 - 2 NMA PO EVERY 6 HOURS NEEDED as needed for Pain Score 1-10/10 24 3 0 September 13, 2019 September 15, 2019 1:00am September 16, 2019 1:08am Plantar fascial fibromatosis Start: 09-13-2019 End: 09-16-2019 Hydrocodone-Acetaminophen Di scontinued 1 - 2 EACH PO EVERY 6 HOURS NEEDED 24 3 September 13, 2019 September 16, 2019 1:08am amoxicillin 500 mg oral tablet (20 sources) Penicillin-class Antibacterial Start: 12-28-2016 End: 01-07-2017 anastrozole 1 mg oral tablet (20 sources) Aromatase Inhibitor Start: 12-28-2022 End: 12-05-2024 take 1 tablet by mouth once daily Anastrozole 1 mg tablet Discontinued 1 mg PO DAILY 90 3 February 15, 2024 6:58pm December 05, 2024 1:42pm Primary cancer of right female breast Malignant neoplasm of unspecified site of right female breast azithromycin 250 mg oral tablet (20 sources) Macrolide Antimicrobial Start: 11-26-2018 End: 12-21-2018 Start: 11-26-2018 End: 12-21-2018 Azithromycin 250 MG Oral Tab let ; 2 (two) Tablets today 1/dx4d for 0 days Quantity: 6 {Tablet} Refills: 0 Ordered: 21-Dec-2018 ASHER Saenz Start: 26-Nov-2018 End: 21-Dec-2018 Status: Inactive Start: 06-12-2012 End: 08-06-2012 Start: 06-12-2012 End: 08-06-2012 ZITHROMAX Z-MEREDITH, 250MG (Oral Tablet) ; 2 (two) Tablet today and then 1 tablet daily x 4 days for 0 days Quantity: 1 {z-meredith} Refills: 0 Ordered: 06-Aug-2012 ASHER Ulrich Start: 12-Jun-2012 End: 06-Aug-2012 Status: Inactive budesonide 3 mg delayed rele ase oral capsule (20 sources) Corticosteroid Comment on above: for microscopic coli tis cephalexin 500 mg oral capsu le (20 sources) Cephalosporin Antibacterial Start: 09-24-2014 End: 12-08-2014 Start: 09-04-2012 End: 09-14-2012 ciprofloxacin 500 mg oral ta blet (20 sources) Quinolone Antimicrobial Start: 09-14-2023 End: 10-03-2023 Start: 03-24-2022 End: 03-31-2022 Start: 07-07-2021 End: 07-12-2021 Start: 03-23-2021 End: 06-11-2021 diclofenac sodium 75 mg delayed release oral tablet (20 sources) Nonsteroidal Anti-inflammatory Drug Start: 01-05-2023 End: 07-05-2023 famotidine 40 mg oral tablet (20 sources) Histamine-2 Receptor Antagonist furosemide 20 mg oral tablet (20 sources) Loop Diuretic LASIX, 20MG (Ora l Tablet) ; (20 MG) Status: Inactive homatropine methylbromide 0. 3 mg/ml / HYDROcodone bitartrate 1 mg/ml oral solution (20 sources) Opioid Agonist, Cholinergic Muscarinic Agonist Start: 11-09-2010 End: 11-19-2010 Start: 11-09-2010 End: 11-19-2010 HYDROCODONE-HOMATROPINE, 5-1 .5MG/5ML (Oral Syrup) ; 1 (one) teaspoon(s) every four hours as needed for cough for 10 days Quantity: 4 {ounce(s)} Refills: 0 Ordered: 09-Nov-2010 ASHER Duvall Start: 09-Nov-2010 End: 19-Nov-2010 Status: Inactive Comments: Medication taken as needed. May cause drowsiness Comment on above: Medication taken as needed. May cause drowsiness hydrocortisone acetate 25 mg rectal suppository (20 sources) Corticosteroid Start: 05-29-2013 End: 06-04-2013 meclizine hydrochloride 12.5 mg oral tablet (20 sources) Antiemetic Start: 05-27-2020 End: 11-12-2020 Comment on above: Medication taken as needed. methylPREDNISolone (20 sources) Corticosteroid Start: 07-19-2023 End: 10-03-2023 Start: 07-19-2023 methylPREDNISo lone 4 mg tablets in a dose pack ; 1 (one) tablet take as directed for 0 days Quantity: 1 {Packet} Refills: 0 Ordered: 19-Jul-2023 ASHER Simmons Start: 19-Jul-2023 nitrofurantoin, macrocrystal s 100 mg oral capsule (20 sources) Nitrofuran Antibacterial Start: 04-19-2022 End: 04-26-2022 nitrofurantoin, macrocrystal s 25 mg / nitrofurantoin, monohydrate 75 mg oral capsule (20 sources) Nitrofuran Antibacterial Start: 02-24-2021 End: 03-01-2021 Start: 08-31-2017 End: 09-07-2017 pantoprazole 40 mg delayed r elease oral tablet (20 sources) Proton Pump Inhibitor microencapsulated potassium chloride 10 meq extended release oral tablet (20 sources) predniSONE (20 sources) take 1 mg by mouth once PREDNISO NE (MEREDITH), 10MG (Oral Tablet) ; taper per podiatry (10 MG) Status: Inactive raNITIdine 150 mg oral capsu le (20 sources) Histamine-2 Receptor Antagonist Start: 08-06-2018 End: 12-21-2018 silver sulfADIAZINE 10 mg/ml topical cream (20 sources) Sulfonamide Antibacterial Start: 09-04-2012 End: 12-07-2012 Start: 09-04-2012 End: 12-07-2012 SILVADENE, 1% (External Crea m) ; 1 (one) application(s) one or 2 times daily for 0 days Quantity: 50 {gram(s)} Refills: 0 Ordered: 07-Dec-2012 ASHER Ulrich Start: 04-Sep-2012 End: 07-Dec-2012 Status: Inactive Problems Active Problems Problem Classification Problem Date Documented Da te Episodic/Chronic Abdominal pain (20 sources) Abdominal pain; Translations: [Unspecified abdominal pain] 11-12-2020 Episodic Acute bronchitis (20 sources) Acute bronchitis; Translations: [Acute bronchitis, unspecified] 06-09-2011 Episodic Adjustment disorders (20 sources) Adjustment disorder with mixed anxiety and depressed mood; Translations: [Adjustment disorder with mixed anxiety and depressed mood] 08-25-2023 Chronic Administrative/social admission (20 sources) Patient encounter status; Translations: [Counseling, unspecified] 12-28-2022 Episodic Allergic reactions (20 sources) Contact dermatitis; Translations: [Unspecified contact dermatitis, unspecified cause] 03-24-2022 Episodic Anxiety disorders (20 sources) Anxiety; Translations: [Anxiety disorder, unspecified] 08-25-2023 Chronic Cancer of breast (20 sources) Primary malignant neoplasm of female right breast; Translations: [Malignant neoplasm of unspecified site of right female breast] Onset: 10-27-2022 Chronic Comment on above: mastectomy 11/2022 Cardiac dysrhythmias (20 sources) Intermittent palpitations; Translations: [Palpitations] 08-25-2023 Episodic Chronic obstructive pulmonary disease and bronchiectasis (20 sources) Bronchitis; Translations: [Bronchitis, not specified as acute or chronic] 11-12-2020 Episodic Complications of surgical procedures or medical care (20 sources) Non-healing surgical wound; Translations: [Other complications of procedures, not elsewhere classified, initial encounter] 11-12-2020 Episodic Conditions associated with dizziness or vertigo (20 sources) Dizziness of unknown cause; Translations: [Dizziness and giddiness] 11-12-2020 Episodic Coronary atherosclerosis and other heart disease (20 sources) Coronary arteriosclerosis; Translations: [Atherosclerotic heart disease of habematolel coronary artery without angina pectoris] 10-27-2022 Chronic Diabetes mellitus without complication (20 sources) Hyperglycemia; Translations: [Hyperglycemia, unspecified] 05-29-2024 Episodic Disorders of lipid metabolism (20 sources) Dyslipidemia; Translations: [Hyperlipidemia, unspecified] 10-27-2022 Chronic Diverticulosis and diverticulitis (20 sources) Diverticulosis of colon; Translations: [Diverticulosis of large intestine without perforation or abscess without bleeding] 08-25-2023 Chronic Comment on above: seen on colo 01/2018 Esophageal disorders (20 sources) Gastroesophageal reflux disease; Translations: [Gastro-esophageal reflux disease without esophagitis] 10-27-2022 Chronic Genitourinary symptoms and ill-defined conditions (20 sources) Dysuria; Translations: [Dysuria] 07-07-2021 Episodic Heart valve disorders (20 sources) History of aortic valve replacement; Translations: [Presence of prosthetic heart valve] 08-25-2023 Chronic Comment on above: bovine valve Oct Hemorrhoids (20 sources) Hemorrhoids; Translations: [Unspecified hemorrhoids] 08-25-2023 Episodic Immunizations and screening for infectious disease (20 sources) Needs influenza immunization; Translations: [Encounter for immunization] 08-25-2023 Episodic Influenza (20 sources) Influenza; Translations: [Influenza due to unidentified influenza virus with other respiratory manifestations] 11-12-2020 Episodic Malaise and fatigue (20 sources) Fatigue; Translations: [Other fatigue] 04-26-2012 Episodic Mood disorders (20 sources) Recurrent major depressive episodes, moderate ; Translations: [Major depressive disorder, recurrent, moderate] 08-25-2023 Chronic Mycoses (20 sources) Tinea corporis; Translations: [Tinea corporis] 02-07-2024 Episodic Noninfectious gastroenteritis (20 sources) Microscopic colitis; Translations: [Microscopic colitis, unspecified] 10-27-2022 Chronic Comment on above: Shaun follows Noninfectious gastroenteritis (20 sources) Acute gastroenteritis; Translations: [Noninfective gastroenteritis and colitis, unspecified] 11-12-2020 Episodic Nonmalignant breast conditions (20 sources) Breast lump; Translations: [Unspecified lump in the left breast, unspecified quadrant] 05-24-2023 Episodic Nonspecific chest pain (20 sources) Chest pain; Translations: [Chest pain, unspecified] 08-06-2012 Episodic Other aftercare (20 sources) Long-term current use of aspirin; Translations: [nursing home (current) use of aspirin] 08-25-2023 Episodic Other aftercare (20 sources) Drug indicated; Translations: [Other [facility] (current) drug therapy] 04-18-2012 Episodic Other aftercare (20 sources) Drug therapy finding; Translations: [Other manager intermediate (current) drug therapy] 05-25-2022 Episodic Other and unspecified benign neoplasm (5 sources) History of polyp of colon; Translations: [Personal history of colonic polyps] 10-27-2022 Episodic Other connective tissue disease (20 sources) Heel pain; Translations: [Pain in unspecified foot] 11-12-2020 Episodic Other connective tissue disease (20 sources) Tendinitis; Translations: [Iliotibial band syndrome, left leg] 08-25-2023 Episodic Other connective tissue disease (20 sources) Other symptoms and signs involving the musculoskeletal system; Translations: [Other musculoskeletal symptoms referable to limbs] 08-25-2023 Episodic Other connective tissue disease (20 sources) Radial styloid tenosynovitis; Translations: [Radial styloid tenosynovitis [de Quervain]] 08-25-2023 Episodic Other connective tissue disease (4 sources) Paraparesis; Translations: [Other symptoms and signs involving the musculoskeletal system] 05-27-2020 Episodic Other connective tissue disease (20 sources) Skeletal muscle tender; Translations: [Myalgia] 08-21-2013 Episodic Other connective tissue disease (20 sources) Musculoskeletal finding; Translations: [Other symptoms and signs involving the musculoskeletal system] 11-06-2024 Episodic Other gastrointestinal disorders (20 sources) Irritable bowel syndrome; Translations: [Irritable bowel syndrome without diarrhea] 08-25-2023 Chronic Other liver diseases (20 sources) Serum alkaline phosphatase raised; Translations: [Abnormal levels of other serum enzymes] 05-29-2024 Episodic Other lower respiratory disease (20 sources) Dyspnea on exertion; Translations: [Other forms of dyspnea] 08-25-2023 Episodic Other lower respiratory disease (20 sources) Cough; Translations: [Cough] 09-24-2014 Episodic Other nervous system disorders (20 sources) Peripheral nerve disease ; Translations: [Polyneuropathy, unspecified] 08-25-2023 Chronic Other nervous system disorders (20 sources) Polyneuropathy; Translations: [Polyneuropathy, unspecified] 11-06-2024 Chronic Other nervous system disorders (20 sources) Facial paresthesia; Translations: [Paresthesia of skin] 05-27-2020 Episodic Other nervous system disorders (20 sources) Finding of hand region; Translations: [Tremor, unspecified] 08-19-2024 Episodic Other non-traumatic joint disorders (20 sources) Greater trochanteric pain syndrome of right lower limb; Translations: [Pain in right hip] 08-25-2023 Episodic Other nutritional; endocrine; and metabolic disorders (5 sources) Obesity; Translations: [Obesity, unspecified] 10-27-2022 Chronic Other nutritional; endocrine; and metabolic disorders (20 sources) Body mass index 30+ - obesity; Translations: [Body mass index (BMI) 30.0-30.9, adult] 11-12-2020 Chronic Other screening for suspected conditions (not mental disorders or infectious disease) (20 sources) Mammographic breast mass; Translations: [Other abnormal and inconclusive findings on diagnostic imaging of breast] Onset: 5 01-05-2023 Episodic Other skin disorders (20 sources) Other symptoms involving skin and integumentary tissues 11-12-2020 Episodic Other skin disorders (20 sources) Inflamed seborrheic keratosis; Translations: [Inflamed seborrheic keratosis] 11-12-2020 Episodic Other skin disorders (20 sources) Other seborrheic keratosis; Translations: [Seborrheic keratosis] 11-12-2020 Episodic Other skin disorders (20 sources) Skin tag; Translations: [Other hypertrophic disorders of the skin] 07-07-2021 Episodic Other skin disorders (20 sources) Excessive sweating; Translations: [Generalized hyperhidrosis] 12-29-2014 Episodic Other skin disorders (20 sources) Seborrheic keratosis; Translations: [Other seborrheic keratosis] 08-25-2023 Episodic Other upper respiratory disease (20 sources) Aphonia 11-12-2020 Episodic Other upper respiratory infections (20 sources) Sinusitis; Translations: [Chronic sinusitis, unspecified] 12-07-2012 Chronic Other upper respiratory infections (20 sources) Acute pharyngitis; Translations: [Acute pharyngitis, unspecified] 11-12-2020 Episodic Residual codes; unclassified (20 sources) Acquired absence of breast; Translations: [Acquired absence of right breast and nipple] 08-25-2023 Episodic Residual codes; unclassified (20 sources) History of vaccination; Translations: [Personal history of other drug therapy] 08-25-2023 Episodic Residual codes; unclassified (20 sources) History of noncompliance with medication regimen; Translations: [Personal history of noncompliance with medical treatment, presenting hazards to health] 08-25-2023 Episodic Residual codes; unclassified (20 sources) Menopause present; Translations: [Asymptomatic menopausal state] 08-25-2023 Episodic Residual codes; unclassified (20 sources) Non-smoker; Translations: [Other specified health status] 08-25-2023 Episodic Residual codes; unclassified (20 sources) History of aortic valve repair; Translations: [Other specified postprocedural states] 08-25-2023 Episodic Residual codes; unclassified (20 sources) History of right mastectomy; Translations: [Acquired absence of right breast and nipple] Onset: 3 07-05-2023 Episodic Residual codes; unclassified (20 sources) Viral syndrome; Translations: [Other general symptoms and signs] 10-23-2023 Episodic Residual codes; unclassified (3 sources) Postmenopausal state; Translations: [Asymptomatic menopausal state] 12-05-2024 Episodic Spondylosis; intervertebral disc disorders; other back problems (20 sources) Disorder of lumbosacral intervertebral disc; Translations: [Other intervertebral disc displacement, lumbosacral region] 11-14-2024 Chronic Unclassified (2 sources) deliveries 07-07-2021 Comment on above: 1 Unclassified (2 sources) Number of Children 07-07-2021 Comment on above: 3 Unclassified (2 sources) Number of Pregnancies 07-07-2021 Comment on above: 3 Unclassified (2 sources) Vaginal deliveries 07-07-2021 Comment on above: 2 Unclassified (2 sources) MCR Well Adult - In general the patient feels well with minor complaints, has decreased energy level and is sleeping poorly. The patient does not exercise and sleeps 6 hours per night. The patient denies having trouble with bathing, dressing/grooming, toileting, preparing meals and ambulating. The patient denies having trouble with grocery shopping, driving, use of telephone, housework, laundry, preparing/taking medications and finances. The patient does not perform monthly breast self exam. The patient has a Healthcare Power of Drier Take Off Tender and a Living Will (her daughter Samantha). 07-11-2022 Unclassified (2 sources) [ADDITIONAL REASON] Follow-up for multiple chronic conditions (RAH) - The patient is here for follow-up of hyperlipidemia, coronary artery disease, depression and GERD. The patient always takes the prescribed medications. No side effects noted. The patient has low activity level and no regular exercise program. The patient's out of office blood pressure checks occur rarely. Note for Multiple chronic conditions follow-up: -Has a boyfriend in [place] and has been seeing a dr soria as well on rare occasion.She had a recent colitis flare and saw Dr Elizabeth last week. 07-11-2022 Unclassified (2 sources) Follow-up for multiple chronic conditions (RAH) - The patient is here for follow-up of hyperlipidemia, coronary artery disease, depression and GERD. The patient always takes the prescribed medications. No side effects noted. The patient has low activity level and no regular exercise program. The patient's out of office blood pressure checks occur rarely. Note for Multiple chronic conditions follow-up: -Has a boyfriend in [place] and has been seeing a dr there as well. Never heard results of NCT.Wants to discuss mammogram result in more detail. Asking to refill metoprolol although the original rx came from cardio. 11-12-2021 Unclassified (2 sources) Follow up from hospital stay - Name of Hospital: [facility]. Date of Admission: 11/09/20. Date of Discharge: 11/10/20. The patient was hospitalized for chest pain. New medications include Atorvastatin 80. Patient did not have any consultations ordered while in the hospital. No post hospital therapies were ordered. Patient was discharged to home. Current Symptoms: Shortness of breath. 11-12-2020 Unclassified (2 sources) MCR Well Adult - In general the patient feels well with no complaints, has good energy level and is sleeping well. The patient does not exercise and sleeps 9 hours per night. The patient denies having trouble with bathing, dressing/grooming, toileting, preparing meals and ambulating. The patient denies having trouble with grocery shopping, driving, use of telephone, housework, laundry, preparing/taking medications and finances. The patient does not perform monthly breast self exam. The patient does not have Healthcare Power of Drier Take Off Tender or Living Will. 05-11-2020 Unclassified (2 sources) [ADDITIONAL REASON] Follow-up for multiple chronic conditions (RAH) - The patient is here for follow-up of hyperlipidemia, coronary artery disease, depression and GERD. The patient always takes the prescribed medications. No side effects noted. The patient has low activity level and no regular exercise program. The patient's out of office blood pressure checks occur rarely. 05-11-2020 Unclassified (2 sources) Follow up from hospital stay - Name of Hospital: . Date of Admission: 10/26/17. Date of Discharge: 10/27/17. The patient was hospitalized for chest pain. New medications include atorvastatin, metoprolol and aspirin. Consultations ordered while in the hospital include cardiology. Patient was discharged to home. Note for Follow up from hospital stay: -She says she is feeling better. Ranitidine was recommended on the d/c summary but pt says no one said anything about it and she is not taking it. 11-03-2017 Unclassified (2 sources) [ADDITIONAL REASON] Transition into care - The patient is transitioning into care from a hospital and a summary of care was reviewed. 11-03-2017 Unclassified (20 sources) 07-07-2021 Unclassified (20 sources) 07-07-2021 Unclassified (20 sources) 07-07-2021 Unclassified (20 sources) 07-07-2021 Unclassified (4 sources) Spinal stenosis of lumbar region without neurogenic claudication; Translations: [M48.061 - Spinal stenosis, lumbar region without neurogenic claudication] Unclassified (1 source) Low back pain, unspecified; Translations: [Low back pain, unspecified] Onset: Urinary tract infections (20 sources) Urinary tract infectious disease; Translations: [Urinary tract infection, site not specified] 09-14-2023 Episodic Past or Other Problems Problem Classification Problem Date Documented Date Episodic/Chronic Cancer of breast (4 sources) History of malignant neoplasm of breast; Translations: [Personal history of malignant neoplasm of breast] Onset: 12-05-2024 12-05-2024 Episodic Other lower respiratory disease (1 source) Other forms of dyspnea; Translations: [Other forms of dyspnea] Onset: 12-19-2024 Episodic Residual codes; unclassified (1 source) Asymptomatic menopausal state; Translations: [Asymptomatic menopausal state] Onset: 12-05-2024 Episodic Spondylosis; intervertebral disc disorders; other back problems (20 sources) Lumbosacral stenosis; Translations: [Spinal stenosis, lumbosacral region] Onset: 12-20-2024 11-14-2024 Episodic Unclassified (2 sources) Wrist pain - The pain is in the right wrist and is described as being located in the entire wrist. The onset of the wrist pain has been gradual following no specific incident and has been occurring in an intermittent pattern for 2 weeks (2-3). The course has been recurrent. The wrist pain is characterized as a mild to moderate sharp stabbing. Aggravating factors include physical activity. Relieving factors include bracing and NSAIDs. Associated features include painful ROM and difficulty with fine motor skills, but do not include muscle swelling, muscle weakness, popping/crepitus or warmth. 08-25-2023 Unclassified (2 sources) Hip pain - The onset of the hip pain has been sudden following no specific incident (Woke Pt up this morning) and has been occurring in a persistent pattern for 3 hours. The course has been increasing. The hip pain is described as being a mild sharp stabbing located in the right hip. The hip pain radiates to the low back. The pain is not aggravated by anything in particular. There are no relieving factors. The symptoms have been associated with limping and weakness. 07-19-2023 Unclassified (2 sources) MCR Well Adult - In general the patient feels well with no complaints, has good energy level and is sleeping well. The patient has a balanced diet. The patient does not exercise and sleeps 8 hours per night. The patient denies having trouble with bathing, dressing/grooming, toileting, preparing meals and ambulating. The patient denies having trouble with grocery shopping, driving, use of telephone, housework, laundry, preparing/taking medications and finances. The patient performs monthly self breast exam. The patient has a Healthcare Power of Drier Take Off Tender and a Living Will. 07-05-2023 Unclassified (2 sources) Back pain - The onset of the back pain has been sudden and has been occurring for 1 week. The pain is located in the lower back and radiates to the lateral aspect of left leg. 01-05-2023 Unclassified (2 sources) UTI - Symptoms include dysuria, urinary frequency, urinary urgency, dark urine, malodorous urine and abdominal pain, but do not include hematuria, flank pain or back pain. The pain is located in the suprapubic area. There is no radiation. The patient describes the pain as aching, burning and stinging. Onset was gradual 3 day(s) ago. There is no known event that preceded symptom onset. The symptoms occur frequently. The patient describes this as moderate in severity and unchanged. Symptoms are relieved by non-opioid analgesics (Tylenol helps with abdominal pain). Associated symptoms include urinary incontinence, but do not include fever, chills, nausea, vomiting, urinary retention or vaginal discharge. Note for UTI: Patient was seen approximately one month ago with a UTI and was treated with Cipro. Symptoms resolved at that time. 04-19-2022 Unclassified (2 sources) UTI - Symptoms include dysuria, urinary frequency, urinary urgency, malodorous urine and abdominal pain, but do not include hematuria, flank pain or back pain. The pain is located in the suprapubic area. There is no radiation. The patient describes the pain as dull and burning. Onset was sudden 2 day(s) ago. There is no known event that preceded symptom onset. The symptoms occur constantly. The patient describes this as moderate in severity and worsening. Symptoms are relieved by non-opioid analgesics (NSAIDs help some). Associated symptoms do not include fever, chills, nausea, vomiting or vaginal discharge. Risk factors do not include indwelling catheter, fecal incontinence, current , menopause or diaphragm use. Note for UTI: Patient reports a history of frequent UTIs 03-24-2022 Unclassified (2 sources) [ADDITIONAL REASON] Rash - The onset of the rash has been gradual and has been occurring in a persistent pattern for 4 days. The course has been increasing. The rash is characterized as red and raised above the skin. The rash was first seen on the upper extremity (left shoulder). There has been no progression. There has been associated itching and erythema, while there has been no associated pain, drainage or edema. There has been associated itching, while there has been no chills, fatigue or fever. 03-24-2022 Unclassified (2 sources) Flank pain - The onset of the flank pain has been sudden and has been occurring in a persistent pattern for 1 day. The course has been constant. The pain is described as a moderate a dull ache (said she cannot lay on her right side) pain. The flank pain is described as being located in the right flank (Right mid to lower back) , and it radiates to the left lower quadrant and suprapubic area. The symptoms have been associated with diarrhea (pt did have diarrhea monday, monday- but none since), nausea and vomiting (twice on monday but none since), while the symptoms have not been associated with chills, cough, dysuria, fever, frequency, hematuria, history of passing a stone or vaginal discharge. Note for Flank pain: pt has been taking loperamide for the diarrheaShe has not tried anything to help the flank pain 03-10-2022 Unclassified (2 sources) Follow-up for multiple chronic conditions (RAH) - The patient is here for follow-up of hyperlipidemia, coronary artery disease, depression and GERD. The patient always takes the prescribed medications. No side effects noted. The patient has low activity level and no regular exercise program. The patient's out of office blood pressure checks occur rarely. Note for Multiple chronic conditions follow-up: -Has a boyfriend in [place] and has been seeing a dr there as well. Had a work up for frequent UTI. 07-07-2021 Unclassified (2 sources) [ADDITIONAL REASON] MCR Well Adult - In general the patient feels well with minor complaints, has decreased energy level and is sleeping poorly. The patient does not exercise and sleeps 6 hours per night. The patient denies having trouble with bathing, dressing/grooming, toileting, preparing meals and ambulating. The patient denies having trouble with grocery shopping, driving, use of telephone, housework, laundry, preparing/taking medications and finances. The patient does not perform monthly breast self exam. The patient does not have Healthcare Power of Drier Take Off Tender or Living Will. 07-07-2021 Unclassified (2 sources) UTI - Symptoms include dysuria, malodorous urine and back pain. The pain is located in the back. The patient describes the pain as aching. Onset was gradual 8 hour(s) ago. There is no known event that preceded symptom onset. The symptoms occur constantly. The patient describes this as moderate in severity and worsening. Associated symptoms do not include fever, chills or nausea. 02-24-2021 Unclassified (2 sources) Cold Symptoms 01-13-2021 Unclassified (2 sources) Dizziness - The onset of the dizziness has been sudden and has been occurring in a persistent pattern for 2 weeks. The dizziness is characterized as lightheadedness and feeling in the head. There has been no associated headache, fever or upper respiratory infection symptoms. 05-15-2020 Unclassified (2 sources) MCR Well Adult - In general the patient feels well with no complaints, has good energy level and is sleeping well. The patient does not exercise and sleeps 7 hours per night. The patient denies having trouble with bathing, dressing/grooming, toileting, preparing meals and ambulating. The patient denies having trouble with grocery shopping, driving, use of telephone, housework, laundry, preparing/taking medications and finances. The patient does not perform monthly breast self exam. The patient does not have Healthcare Power of Drier Take Off Tender or Living Will. 01-02-2019 Unclassified (2 sources) Cold Symptoms - Symptoms include nasal congestion, scratchy throat, dry cough, chills and general malaise, but do not include fever. The onset was sudden 4 day(s) ago. The symptoms occur constantly. The patient describes this as moderate in severity and worsening. The patient is not currently being treated for this problem. Risk factors do not include smoking. 11-26-2018 Unclassified (2 sources) Chest pain - The onset of the pain has been gradual and has been occurring in an increasing pattern for 2 months. The pain is described as a mild to moderate dull ache and pressure sensation. The pain is described as being located in the left chest and radiates to the left arm, left shoulder and back. The symptoms have been associated with dizziness. Previous evaluations include ECG. Note for Chest pain: shortness of breath, increased chest discomfort with exertion.She was scheduled with director of recruitment and admissions yesterday but appt cancelled d/t weather, Dr[facility], she is rescheduled for December. 10-26-2017 Unclassified (2 sources) UTI - Symptoms include dysuria, urinary frequency and urinary urgency. There is no assiciated pain. There is no radiation. Onset was sudden 2 day(s) ago. There is no known event that preceded symptom onset. The symptoms occur constantly. The patient describes this as moderate in severity and worsening. Associated symptoms do not include fever, nausea or vomiting. 08-31-2017 Unclassified (2 sources) Sore throat - The onset of the sore throat has been acute and has been occurring in a persistent pattern for 5 days. The course has been gradually worsening. The sore throat is described as moderate. The sore throat was precipitated by exposure to a person with strep pharyngitis. Symptoms include sore throat, headache and ear pain (bilateral), but do not include fever, runny nose, nasal congestion or cough. Relieving factors include NSAIDs. Patient denies history of seasonal allergies, recurrent sinusitis, recurrent strep pharyngitis or tonsillectomy. Note for Sore throat: Daughter diagnosed with positive strep last week. 12-28-2016 Unclassified (2 sources) Follow up consultation - The patient is here to follow-up after hospitalization. Note for Consultation follow-up: -Had aortic valve replacement and then it was complicated with left pleural effusion. She is recovering well. 11-02-2015 Unclassified (2 sources) Cold Symptoms - Symptoms include nasal congestion, ear fullness, dry cough, chills and general malaise, but do not include fever. The onset was sudden 4 day(s) ago. The symptoms occur constantly. The patient describes this as moderate in severity and worsening. The patient is not currently being treated for this problem. Risk factors do not include smoking. 09-30-2015 Unclassified (2 sources) Well Adult, female - The patient feels well with minor complaints, has decreased energy level and is sleeping well. The current method of contraception is: tubal ligation. The patient has a balanced diet. The patient does not exercise. The patient sleeps 9 hours per night. 03-05-2015 Unclassified (2 sources) Diarrhea - The onset of the diarrhea has been sudden and has been occurring in a persistent pattern for 5 days. The course has been increasing. The stools are watery. The volume of the stools is large. The symptoms have been associated with abdominal pain, nausea, weakness and weight loss, while the symptoms have not been associated with fever. Note for Diarrhea: -Needs excuse for work 4-9 thru 4-13. 12-29-2014 Unclassified (2 sources) Cold Symptoms - Symptoms include nasal congestion, hoarseness, dry cough, general malaise and headache, but do not include ear pain, sore throat or fever. The onset was sudden 5 day(s) ago. The symptoms occur constantly. The patient describes this as moderate in severity and worsening. The patient is not currently being treated for this problem. Risk factors do not include smoking. The patient has not been exposed to secondhand smoke. Note for Upper respiratory infection: -Had flu vaccine this year. 09-24-2014 Unclassified (2 sources) Well adult female - The patient feels well with minor complaints, has decreased energy level and is sleeping poorly. The patient takes no supplemental vitamins & iron. The patient does not exercise. The patient sleeps 8 hours per night. Note for Well adult female: - Inquiring about Zostavax. 08-21-2013 Unclassified (2 sources) Rectal bleeding - The onset of the rectal bleeding has been acute and has been occurring in an intermittent pattern for 3 days. The course has been recurrent. The bleeding is characterized as blood streaking of toilet paper and bloody toilet bowl water (last pm (no bowel movement)). The symptoms have been associated with family history of colon cancer (mother), while the symptoms have not been associated with change in bowel habits, hard stools, heartburn, hematemesis, nausea, vomiting or weight loss.The bleeding is characterized as painless. Previous diagnostic tests have included lower gastrointestinal X-ray (colonoscopy in the last few months with Dr Elizabeth. Has colitis - f/u scheduled for Jun 19). Note for Rectal bleeding: Pt is currently using otc Preparation H with no improvement. Pt has been wearing a pad and at times has noticed bright red bleeding approximately the size of a quarter 05-29-2013 Unclassified (2 sources) infected leg - mole removal from back of left calf on 08/29/12 (COLLEEN - electrocautery), now site has yellow drainage, never scabbed over, redness surrounding. Started bleeding the day after removal and went to [facility] care and there they cauterized it with silver nitrate sticksAfebrile 09-04-2012 Unclassified (2 sources) Skin Lesion - The skin lesion appeared gradually and has been occurring for years. It has been unchanging in size. The lesion is characterized as red (white scaly), crusty and raised above the skin. The lesion is located on the lower extremity (left lower leg). Note for Skin lesion: dull ache chest pain, happened yesterday while shopping rested then went home and spent the afternoon in bed until it went away. put up [employer] tree today and had mre chest pain/pressure /heaviness. 08-30-2012 Unclassified (2 sources) Cold Symptoms - Symptoms include nasal congestion, runny nose, dry cough, general malaise, headache and facial pain, but do not include ear pain, scratchy throat or fever. The onset was gradual 1 week(s) ago. The symptoms occur constantly. The patient describes this as moderate in severity and worsening. Risk factors do not include smoking. 08-06-2012 Unclassified (2 sources) [ADDITIONAL REASON] lesion - Dry scaley lesion on left calf. 08-06-2012 Unclassified (2 sources) Cold Symptoms - Symptoms include nasal congestion, runny nose, purulent discharge (green or clear), sore throat, productive cough (green/red), fever, chills, general malaise and headache. The onset was sudden 2 day(s) ago. The symptoms occur constantly. The patient describes this as moderate in severity and worsening. Current treatment includes non-prescription cold medication (nyquil). The patient has been exposed to an individual with similar symptoms (family). Note for Upper respiratory infection: Some shortness of breath/wheezing 06-12-2012 Unclassified (2 sources) Abdominal pain - The onset of the abdominal pain has been acute and has been occurring in an intermittent pattern for 2 months. The course has been increasing. The pain is described as a moderate dull ache, pressure sensation and fullness. The pain is located in the left upper quadrant and does not radiate. The symptoms have no aggravating factors but have no relieving factors. The symptoms have been associated with bloating, while the symptoms have not been associated with fever. Note for Abdominal pain: pt states her abd feels rigid 04-26-2012 Unclassified (2 sources) multiple complaints - Pt states Monday morning she vomited and had diarrhea, the diarrhea lasted until Monday and then stopped. She also c/o epigastric pain and a queasiness. She is tired and just not feeling well. Decreased appetite, did eat solids last evening and kept them down. She states this am after helping her granddaughter get ready for school, she was sweating profusely. She has missed 3 days of work, and just felt bad enough she wanted to come in. Has not taken anything OTC for symptoms. 10-11-2011 Unclassified (2 sources) Cold Symptoms - Symptoms include productive cough (greenish stuff. Congestedin her chest.), but do not include sneezing, nasal congestion, runny nose or sore throat. The onset was sudden 4 day(s) ago. The symptoms occur constantly. The patient describes this as moderate in severity and worsening. Current treatment includes NSAIDs. 06-09-2011 Unclassified (2 sources) Well Adult, female - The patient feels well with no complaints, has good energy level and is sleeping well. Most recent Pap smear: : (09/26--nl). The current method of contraception is: tubal ligation. Date of last mammogram : (04/27--nl). Patient has not had bone density screening. Date of most recent cholesterol screening : (05/17/11--294, was not taking lipitor as prescribed, will take sporadically or not at all). Date of most recent glucose screening : (05/17/11--89). Patient has not had a Zostavax vaccine. Patient has not had a Pneumovax vaccine. Date of most recent influenza vaccine : (2009). Last Tetanus booster: unknown/unsure. The patient has a balanced diet. Patient does not exercise. Patient sleeps 8 hours per night. Note for Well Adult, female: colonoscopy 07/[address] Gretta Munguia 05-19-2011 Unclassified (2 sources) Breast pain - The onset of the pain has been acute and has been occurring in a persistent pattern for 1 week. The course has been increasing. The pain is described as moderate. Note for Breast pain: No apparent trigger. No worse with movement/lifting. If lays on stomach in bed, almost feels like there is something there but can't feel on her exam. Has one cup coffee and 2-3 glasses iced tea daily. Has not tried analgesics for pain. 12-10-2010 Unclassified (2 sources) Bronchitis - The onset of the bronchitis has been sudden and has been occurring in a persistent pattern for 3 days. The course has been gradually worsening (chest kamara and hurts). The bronchitis is described as moderate chest congestion and chronic cough (treated per [facility] with an antibiotic for sore throat within the last month). Note for Bronchitis: Reason for Visit started by clinical therapeutic recreation assistant. Reviewed with patient and completed by Balaji Guerra MD 11-09-2010 Unclassified (2 sources) Ear pain - The onset of the pain has been acute and has been occurring in a persistent pattern for 4 days. The course has been increasing. The pain is described as a moderate dull aching. The pain is described as being located in the inner ear. The pain is felt in both ears. Note for Ear pain: also has neck and axillary pain 10-25-2010 Unclassified (2 sources) loss of voice. - Brings in a written list: 4 wks of no voice. This has been intermittant problem for several years. She went to Dr. Gomez for rn coronary care unit for massages and it didn't help. She wonders if it is MS and if she can be rechecked for that. She has done some internet research--also wondering about spasmodic dysphonia. She also talked to a retired DrMeaghan who suggested hypnosis. She was at ENT who told her she is normal and suggested psych eval. Her note says she fell twice in the last month, losing her balance. She states she is busy and has some stress in her life but nothing new. States the loss of voice was present during an entire week of vacation. 06-27-2010 Results Test Name Value Interpretation Reference Range Facility OPERATIVE PROCEDURESon 07-31 OPERATIVE PROCEDURES [facility] OPERATIVE REPORT NAME ACCOUNT SEX AGE ADMIT DISCHARGE PT MED. RECORD# NUMBER DATE DATE TYPE JOHN WOOD [id number] F 75 07/30/25 07/30/25 2 M [id number] ROOM: [facility] DATE OF : 1950 DICTATING PHYSICIAN: Gretta Munguia DATE OF SURGERY: July 30, 2025 SURGEON: Gretta Munguia MD DIAMOND DRILLER: ANESTHESIOLOGIST: Kee Rossi DO ANESTHETIC: PREOPERATIVE DIAGNOSIS: POSTOPERATIVE DIAGNOSIS: Screening colonoscopy, diverticulosis, and small hemorrhoids. OPERATION PERFORMED: Screening colonoscopy. COMPLICATIONS: ESTIMATED BLOOD LOSS: None. SPECIMEN: None. DISPOSITION: Stable, to recovery. INDICATIONS: Mrs. Wood is a pleasant 75-year-old lady who presents for screening endoscopy. After informed consent, she was examined as follows. DESCRIPTION OF OPERATION: The patient was placed on a padded gurney in the left lateral decubitus position with adequate padding at pressure points, and time-out verification was done. She was given sedation per Anesthesia with monitoring throughout. Digital examination showed small external hemorrhoidal tags, normal tone, and no discrete mass. The Olympus [id number] flexible colonoscope was introduced through the anal verge and carefully advanced, protecting the surrounding mucosa. The scope was advanced through the rectal vault and then through the sigmoid colon, which was rather tortuous. There were a few small scattered Page 1 of 2 JOHN WOOD Operative Report JOHN OWOD : 1950 diverticula. The scope was advanced through the descending colon, beyond the splenic flexure, transverse colon, hepatic flexure, and ascending colon toward the ileocecal junction. The landmarks were noted and documented. The prep was adequate. The scope was carefully rotated and withdrawn with irrigation and suctioning in a back-and- forth movement and circular movement as needed to view the folds. The ascending, transverse, descending and sigmoid colon were carefully viewed. In the rectal vault, the scope was retroflexed, rotated, straightened out, and then withdrawn with decompression. There were small internal and external hemorrhoidal tags, but no tear or fissure is seen. No polyps were seen. No biopsies were taken. The patient can have a repeat endoscopy in 10 years unless she has other risk factors, in which case she may return at an earlier date. The case will be discussed with the patient when she is more awake and alert. Dictated By: Gretta Munguia MD 07/30/25 12:45 JOB #: [id number] Transcribed By: mercy 07/30/25 16:55 Electronically signed by: E-Sign Dr. Gretta Munguia MD 07/31/25 13:10 Page 2 of 2 JOHN WOOD Operative Report Normal [facility] Bone density reportOrdered B y: Tim Bhardwaj on 06-06-2025 Study report Skeletal system DXA [facility] Imaging Services [address] [place], [place] [address] Dexa Bone Density Study MR#: [id number] Acct: [id number] Name: JOHN WOOD Rep #: [id number] : 1950 F 75 From: Tano Bhardwaj MD PCP: Dr. Nohemi Lemus MD Status: R EG CLI Study:Dexa Bone Density Study Date of Exam: 06/04/25 Exam# [id number] Ordering Dr: Tina Masters NP AUTOM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-C PROCEDURE: DEXA BONE DENSITY STUDY 06/04/2025 REASON FOR EXAM: SCREENING FOR OSTEOPORSIS F, age 75 y/o . Postmenopausal. TECHNIQUE: Procedure Code: BDDBD Modality: DX Procedure: DEXA BONE DENSITY STUDY COMPARISON: January 12, 2023 FINDINGS: BMD and T-SCORES Lumbar spine: 1.073 g/cm2, T-score 0.5 Levels: L1 through L4 Change from prior: Loss of 8.2%. Left femoral neck: 0.710 g/cm2, T-score -1.3 Femoral neck comparison data not recommended for monitoring change. Left total hip: 0.921 g/cm2, T-score -0.2 Change from prior: Loss of 1.9%. Right femoral neck: 0.715 g/cm2, T-score -1.2 Femoral neck comparison data not recommended for monitoring change. Right total hip: 0.868 g/cm2, T-score -0.6 Change from prior: Loss of 3.7%. The World Health Organization has defined the following categories based on bonedensity: Normal bone density: T-score equal to or greater than -1.0 Osteopenia: T-score between -1.0 and -2.5 Osteoporosis: T-score equal to or less than -2.5 FRAX (or Comparable) Fracture Risk Assessment: 10 Year Probability of Fracture: Major Osteoporotic Fracture: 9.4% Hip Fracture: 1.4% (Note: FRAX is not to be reported in setting of normal range bone density, osteoporosis on DEXA, known history of osteoporosis, prior osteoporotic hip or vertebral fracture, or for any patient undergoing pharmacological treatment for bone loss.) The National Osteoporosis Foundation (NOF) recommends pharmacological treatment for patients with a FRAX 10-year risk of 3% or higher for a hip fracture, or 20% or higher for a major osteoporotic fracture, to prevent osteoporosis and reduce fracture risk. The patient does meet the pharmacological treatment recommendations for prevention of osteoporosis. BD/Dexa Bone Density Study IMPRESSION: OSTEOPENIA. Recommend follow-up as clinically warranted. Reading Location: [place] [address] CC: MARY John; Dr. Nohemi Lemus MD ~ Motor Bike Mechanic: Signed [facility] Breast imaging reportOrdered By: Tim Bhardwaj on 06-04-2025 Study report [facility] Imaging Services [address] [place] [address] SCREEN MAMM (CAD) W/FADY UNI L MR#: [id number] Acct: [id number] Name: JOHN WOOD Rep #: [id number] : 1950 F 75 From: Tano Bhardwaj MD PCP: Dr. Nohemi Lemus MD Status: R EG CLI Study:SCREEN MAMM (CAD) W/FADY UNI L Date of Exam: 06/04/25 Exam# [id number] Ordering Dr: Tina Masters NP EXAM: SCREEN MAMM (CAD) W/FADY UNI L DATE: 06/04/2025 CLINICAL HISTORY: F, Age 75 y/o , SCREENING Personal history of breast cancer. Status post right mastectomy. TECHNIQUE: Procedure Code: BISMWCADULTO Modality: MG Procedure: SCREEN MAMM (CAD) W/FADY UNI L COMPARISON: Prior exam(s) dated May 27, 2024.. FINDINGS: TISSUE DENSITY: The breasts are almost entirely fatty. Bilateral Breast Mammographic Findings: No significant masses, calcifications or other abnormalities are identified. No suspicious masses, areas of developing architectural distortion, or suspicious calcifications. There has been no significant interval change. BI/SCREEN MAMM (CAD) W/FADY UNI L IMPRESSION: Stable bilateral screening mammogram. OVERALL FINAL ASSESSMENT BI-RADS 1: NEGATIVE. RECOMMENDATION: Routine annual follow-up in 1 Year A letter with findings and recommendations will be mailed to the patient. Reading Location: [place] [address] CC: MARY John; Dr. Nohemi Lemus MD ~ Motor Bike Mechanic: Signed [facility] Dexa Bone Density Studyon Dexa Bone Density Study [facility] Imaging Services [address] [place] [id number] Dexa Bone Density Study MR#: [id number] Acct: [id number] Name: JOHN WOOD Rep #: [id number] : 1950 F 75 From: Tim mclaughlin MD PCP: Dr. Nohemi Lemus MD Status: REG CLI Study: Dexa Bone Density Study Date of Exam: 06/04/25 Exam# [id number] Ordering Dr: Tina John NP, NP PROCEDURE: DEXA BONE DENSITY STUDY 06/04/2025 REASON FOR EXAM: SCREENING FOR OSTEOPORSIS F, age 75 y/o . Postmenopausal. TECHNIQUE: Procedure Code: BDDBD Modality: DX Procedure: DEXA BONE DENSITY STUDY COMPARISON: January 12, 2023 FINDINGS: BMD and T-SCORES Lumbar spine: 1.073 g/cm2, T-score 0.5 Levels: L1 through L4 Change from prior: Loss of 8.2%. Left femoral neck: 0.710 g/cm2, T-score -1.3 Femoral neck comparison data not recommended for monitoring change. Left total hip: 0.921 g/cm2, T-score -0.2 Change from prior: Loss of 1.9%. Right femoral neck: 0.715 g/cm2, T-score -1.2 Femoral neck comparison data not recommended for monitoring change. Right total hip: 0.868 g/cm2, T-score -0.6 Change from prior: Loss of 3.7%. The World Health Organization has defined the following categories based on bone density: Normal bone density: T-score equal to or greater than -1.0 Osteopenia: T-score between -1.0 and -2.5 Osteoporosis: T-score equal to or less than -2.5 FRAX (or Comparable) Fracture Risk Assessment: 10 Year Probability of Fracture: Major Osteoporotic Fracture: 9.4% Hip Fracture: 1.4% (Note: FRAX is not to be reported in setting of normal range bone density, osteoporosis on DEXA, known history of osteoporosis, prior osteoporotic hip or vertebral fracture, or for any patient undergoing pharmacological treatment for bone loss.) The National Osteoporosis Foundation (NOF) recommends pharmacological treatment for patients with a FRAX 10-year risk of 3% or higher for a hip fracture, or 20% or higher for a major osteoporotic fracture, to prevent osteoporosis and reduce fracture risk. The patient does meet the pharmacological treatment recommendations for prevention of osteoporosis. BD/Dexa Bone Density Study IMPRESSION: OSTEOPENIA. Recommend follow-up as clinically warranted. Reading Location: [place] [address] CC: MARY John; Dr. Nohemi Lemus MD Motor Bike Mechanic: Signed Normal [facility] Oncology Visit Reporton 05-19 Oncology Visit Report [facility] [address] [place] [address] OFFICE VISIT Date of Service: 06/04/25 1330 MR#: [id number] Acct: [id number] Name: JOHN WOOD Rep #: [id number] : 1950 From: Tina John NP AUTOM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 -C Age/Sex: 75/F Location[place] [facility] Status: Signed HPI Subjective Date of Service 06/04/25 Chief Complaint Breast cancer History of Present Illness 75-year-old female who presented after an abnormal screening mammogram. She has no family history of breast cancer but her mother in her 40s with metastatic colon cancer. Patient has been vigilant with screening mammographies and colonoscopies. September 14, 2022 screening mammogram: Right breast mass subareolar measuring 19 mm in maximum diameter. Left breast focal calcifications unchanged from August 2021. September 14, 2022 ultrasound: Right breast solid suspicious lesion subareolar measuring 19 mm in maximum diameter. Left breast: No significant suspicious findings. October 05, 2022 right breast core biopsy: Invasive ductal carcinoma, grade 3, ER positive (98%, strong) MT positive (95 percent, strong) HER2 focal equivocal 2+ by IHC negative by FISH. October 24, 2022 CT scan chest abdomen and pelvis: No evidence for metastatic disease. October 2022 bone scan: No evidence for metastatic disease November 21, 2022: Right breast mastectomy: Invasive ductal cancer, grade 3, 20 mm in maximum diameter, lymphovascular invasion not identified, DCIS found, margins negative, 6 lymph nodes negative for metastatic cancer Oncotype Dx score of 7 ( low risk) Treatment summary and response: December 11, 2022 right breast mastectomy with sentinel lymph node biopsy. Adjuvant hormonal therapy with Arimidex December 2022 Interval History The patient is presenting to clinic for a planned 6 month follow up. Confirms good adherence and tolerance to AI at this time. Denies joint/muscle pain, vaginal dryness, and fatigue. + hot flashes intermittently, less frequently, no sleep disturbance. Exertional dyspnea continues, shared this concern with her director of recruitment and admissions. States all testing was normal. She also underwent a CT chest with contrast December 2024 to address dyspnea c/o. CT did not demonstrate any acute pulmonary abnormality. Further denies weight loss, headaches, palpitations, bone pain, abd pain, changes in her bowel habits, and any changes along right chest wall or within the left breast she has noted while bathing/dressing. Does not perform self exam. [facility] Medical History History of breast cancer Exertional dyspnea Screening for breast cancer Post-menopausal Screening for osteoporosis Left breast mass Encounter for education History of colon polyps Coronary artery disease Dyslipidemia GERD (gastroesophageal reflux disease) Primary cancer of right female breast Microscopic colitis Dysuria UTI (urinary tract infection) Carpal tunnel syndrome Obesity Invasive ductal carcinoma of right breast Surgical History S/P lumpectomy, left breast History of total mastectomy of left breast History of delivery S/P cholecystectomy History of carpal tunnel surgery H/O aortic valve replacement Family History (Updated 06/04/25 @ 14:03 by Tina John AUTOM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, AUTOM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-C) Father Heart disease Mother Cancer Brother Cancer abdominal cancer Other Colon cancer Social History Smoking Status: Never smoker alcohol intake: current alcohol intake frequency: holidays/special occasions only ROS ROS Narrative Negative except as documented in the interval HPI Intake Vital Signs 12/05/24 13:28 06/04/25 13:30 Height 5 ft 7 in 5 ft 9 in Weight: 217 lb BMI 32.0 BP 125/69 H Blood Pressure Location Lt brachial Position Sitting Respiration 16 Pulse 66 Pulse Source Monitor Temp 97.1 F L Temperature Source Temporal Artery Pulse Oximetry (%) 97 Oxygen Delivery Method room air Intake Framing Specialist Required: No Accompanied by: Significant Other Is patient in pain?: No Allergies latex Allergy (Verified 06/04/25 13:33) Rash Sulfa (Sulfonamide Antibiotics) Allergy (Verified 06/04/25 13:33) Itching morphine Adverse Reaction (Verified 06/04/25 13:33) confusion Medications ???Medication ???Instructions ???Recorded ???Confirmed ???Type aspirin 81 mg chewable tablet 81 mg PO DAILY@0800 09/12/1906/04 History metoprolol tartrate 25 mg tablet 25 mg PO DAILY 09/12/19 06/04/25 H istory omeprazole 40 mg capsule,delayed 40 mg PO DAILY 09/12/19 06/04/25 H istory release loperamide 2 mg capsule 2 mg PO Q6H PRN 10/24/22 06/04/25 History ezetimibe 10 mg tablet 1 (more content not included)... [facility] SCREEN MAMM (CAD) W/FADY UNI Kahlil 06-04-2025 SCREEN MAMM (CAD) W/FADY UNI L [facility] Imaging Services [address] [place], [place] [address] SCREEN MAMM (CAD) W/FADY UNI L MR#: [id number] Acct: [id number] Name: JOHN WOOD Rep #: [id number] : 1950 F 75 From: Tim mclaughlin MD PCP: Dr. Nohemi Lemus MD Status: [facility] Study: SCREEN MAMM (CAD) W/FADY UNI L Date of Exam: 0 06/04/25 Exam# [id number] Ordering Dr: Tina John NP AUTOM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 -C EXAM: SCREEN MAMM (CAD) W/FADY UNI L DATE: 06/04/2025 CLINICAL HISTORY: F, Age 75 y/o , SCREENING Personal history of breast cancer. Status post right mastectomy. TECHNIQUE: Procedure Code: BISMWCADULTO Modality: MG Procedure: SCREEN MAMM (CAD) W/FADY UNI L COMPARISON: Prior exam(s) dated May 27, 2024.. FINDINGS: TISSUE DENSITY: The breasts are almost entirely fatty. Bilateral Breast Mammographic Findings: No significant masses, calcifications or other abnormalities are identified. No suspicious masses, areas of developing architectural distortion, or suspicious calcifications. There has been no significant interval change. BI/SCREEN MAMM (CAD) W/FADY UNI L IMPRESSION: Stable bilateral screening mammogram. OVERALL FINAL ASSESSMENT BI-RADS 1: NEGATIVE. RECOMMENDATION: Routine annual follow-up in 1 Year A letter with findings and recommendations will be mailed to the patient. Reading Location: [facility] CC: AUTOM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-Han John; Dr. Nohemi Lemus MD Motor Bike Mechanic: Signed Normal [facility] CBC + DIFFon 05-13-2025 Baso # 0.01 x10EE3/UL Normal 0.00 - 0.10 [facility] Comment on above: Performed By: #### 2 [id number] #### [facility],[address] [place] [address] Basophils/100 WBC (Bld) 0.3 % Normal 0.0 - 2.0 [facility].; [facility], [facility] Comment on above: Performed By: #### 2 63513 #### [facility],[address] [place] [address] CBC + DIFF Normal [facility] Comment on above: Result Comment: CBC- COMPLETE BLOOD COUNT Performed By: #### 2 22720 #### [place] [address] EO # 0.10 x10EE3/UL Normal 0.00 - 0.50 [facility] Comment on above: Performed By: #### 2 85481 #### [address] [address] Eosinophils/100 WBC (Bld) 2.2 % Normal 0.0 - 7.0 [facility].; [facility] Comment on above: Performed By: #### 2 54652 #### [place] [address] Erythrocyte distribution width (RBC) [Ratio] 14.3 % Normal 12.0 - 15.6 [facility], [facility].; [facility], [facility]. Comment on above: Performed By: #### 2 49931 #### [place] [address] Hematocrit (Bld) [Volume fraction] 42.2 % Normal 34.0 - 46.0 [facility], [facility].; [facility], [facility]. Comment on above: Performed By: #### 2 67201 #### [place] [id number] Hemoglobin (Bld) [Mass/Vol] 14.5 g/dL Normal 12.0 - 16.0 [facility]; [facility] Comment on above: Performed By: #### 2 00254 #### [facility],[address] [place] [address] Lymph # 1.73 x10EE3/UL Normal 0.80 - 2.80 [facility] Comment on above: Performed By: #### 2 25339 #### [facility],[address] [place] [address] Lymphocytes/100 WBC (Bld) 38.9 % Normal 20.0 - 45.0 [facility]; [facility] Comment on above: Performed By: #### 2 44842 #### [place] [address] MANUAL DIFF N/A Normal [facility] Comment on above: Performed By: #### 2 48932 #### [facility],[address] [place] [address] MCH (RBC) [Entitic mass] 31 pg Normal 27 - 33 [facility]; [facility], [facility] Comment on above: Performed By: #### 2 34713 #### [place] [address] MCHC 34 X10 3 Normal 32 - 36 [facility] Comment on above: Performed By: #### 2 41217 #### [place] [address] MCV (RBC) [Entitic vol] 91 fL Normal 80 - 99 [facility]; [facility] Comment on above: Performed By: #### 2 28470 #### [facility],[address] [place] [address] [place] # 0.35 x10EE3/UL Normal 0.20 - 1.00 [facility] Comment on above: Performed By: #### 2 49770 #### [facility],[address] [place] [address] MONOS % 7.9 % Normal 0.0 - 10.0 [facility] Comment on above: Performed By: #### 2 96563 #### [facility],[address] [place] [address] Morphology Bhupinder (Bld) [Interp] N/A Normal [facility] Comment on above: Performed By: #### 2 88030 #### [facility],[address] [place] [address] Neut # 2.26 x10EE3/UL Normal 1.50 - 7.10 [facility] Comment on above: Performed By: #### 2 79221 #### [address] [address] Neutrophils/100 WBC (Bld) 50.7 % Normal 46.0 - 76.0 [facility], [facility].; [facility]. Comment on above: Performed By: #### 2 81671 #### [facility],[address] [place] [address]283 PLATELET 206 x10EE3/UL Normal 150 - 450 [facility] Comment on above: Performed By: #### 2 44778 #### [address] [address] Platelet mean volume (Bld) [Entitic vol] 8.8 fL Normal 6.6 - 10.[address] [facility].; [facility], [facility]. Comment on above: Result Comment: AUTO MATED DIFFERENTIAL Performed By: #### 2 67299 #### [address] [address] RBC 4.62 x 10EE6/UL Normal 4.10 - 5.30 [facility] Comment on above: Performed By: #### 2 23616 #### [address] [address] WBC 4.5 x 10EE3/UL Normal 4.5 - 10.8 [facility] Comment on above: Performed By: #### 2 09502 #### [facility],[address] [place] [address] CMP with eGFRon 05-13-2025 AGE 75 years Normal [facility] Comment on above: Performed By: #### 2 61468 #### [facility],[address] [place] [address] Albumin [Mass/Vol] 3.2 g/dL Low 3.4 - 5.0 [facility].; [facility], [facility]. Comment on above: Performed By: #### 2 59796 #### [facility],[address] [place] [address] Albumin/Globulin [Mass ratio] 0.9 {ratio} Normal 0.9 - 1.6 [facility] Comment on above: Performed By: #### 2 10635 #### [facility],[address] [place] [address] ALK PHOS 129 U/L High 46 - 116 [facility] Comment on above: Performed By: #### 2 07170 #### [facility],[address] [place], [place] [id number] ALT [Catalytic activity/Vol] 22 U/L Normal 16 - 63 [facility].; [facility], [facility]. Comment on above: Performed By: #### 2 79493 #### [facility],[address] [place], [place] [address] Anion gap [Moles/Vol] 13 mmol/L Normal 10 - 20 [facility] Comment on above: Performed By: #### 2 63403 #### [facility],[address] [place], [place] [address] AST [Catalytic activity/Vol] 21 U/L Normal 13 - 39 [facility].; [facility], [facility]. Comment on above: Performed By: #### 2 14972 #### [facility],[address] [place], [place] [address] B/C RATIO 19 ratio Normal 0 - 30 [facility] Comment on above: Performed By: #### 2 44158 #### [facility],[address] [place] [address] Bilirubin [Mass/Vol] 0.6 mg/dL Normal 0.2 - 1.0 [facility], [facility].; [facility], [facility]. Comment on above: Performed By: #### 2 53952 #### [place] [address] Calcium [Mass/Vol] 8.9 mg/dL Normal 8.5 - 10.1 [facility], [facility].; [facility] Comment on above: Performed By: #### 2 81094 #### [place] [address] Chloride [Moles/Vol] 107 mmol/L Normal 98 - 107 [facility].; [facility], [facility]. Comment on above: Performed By: #### 2 30151 #### [place] [address] CMP with eGFR Normal [facility] Comment on above: Result Comment: COMP REHENSIVE METABOLIC PANEL Performed By: #### 2 65743 #### [place] [address] CO2 [Moles/Vol] 25.3 mmol/L Normal 21.0 - 32.0 [facility], [facility].; [facility] Comment on above: Performed By: #### 2 27825 #### [place] [address] Creatinine [Mass/Vol] 0.88 mg/dL Normal 0.55 - 1.02 [facility], [facility].; [facility] Comment on above: Performed By: #### 2 22566 #### [address] [address] GFR/1.73 sq M.predicted among non-blacks MDRD (S/P/Bld) [Vol rate/Area] mL/min/{1.73_m2} Normal 60 - 999 [facility] Comment on above: Performed By: #### 2 08312 #### [address] [address] Result Comment: ACCO RDING TO THE NATIONAL KIDNEY DISEASE EDUCATION PROGRAM(NKDE), A NORMAL eGFR IS A VALUE GREATER THAN OR EQUAL TO 60 ML/MIN/1.73 SQ METERS. CHRONIC KIDNEY DISEASE: <60mL/MIN/1.73 SQ METERS KIDNEY FAILURE: <15mL/MIN/1.73 SQ METERS THIS TEST SHOULD ONLY BE USED FOR PATIENTS 18 YEARS OF AGE AND OLDER. Globulin (S) [Mass/Vol] 3.6 g/dL Normal 1.5 - 3.8 [facility].; [facility], [facility]. Comment on above: Performed By: #### 2 14197 #### [address] [address] Glucose [Mass/Vol] 102 mg/dL Normal 74 - 106 [facility]; [facility], [facility]. Comment on above: Performed By: #### 2 23212 #### [address] [address] Potassium [Moles/Vol] 4.6 mmol/L Normal 3.5 - 5.1 [facility].; [facility], [facility] Comment on above: Performed By: #### 2 26834 #### [address] [address] Protein [Mass/Vol] 6.8 g/dL Normal 6.4 - 8.2 [facility].; [facility], [facility] Comment on above: Performed By: #### 2 31509 #### [address] [address] Sodium [Moles/Vol] 141 mmol/L Normal 136 - 145 [facility].; [facility], [facility]. Comment on above: Performed By: #### 2 00432 #### [facility],[address] [place] [address] Urea nitrogen [Mass/Vol] 17 mg/dL Normal 7 - 18 [facility].; [facility], [facility] Comment on above: Performed By: #### 2 74816 #### [address] [address] LIPID PROFILEon 05-13-2025 Cholesterol [Mass/Vol] 209 mg/dL Normal 0 - 240 [facility], [facility] Comment on above: Performed By: #### 2 73229 #### [address] [address] Cholesterol in HDL [Mass/Vol] 67 mg/dL High 40 - 60 [facility] Comment on above: Performed By: #### 2 41387 #### [address] [address] Cholesterol in LDL [Mass/Vol] 130 mg/dL High 0 - 129 [facility].; [facility], [facility]. Comment on above: Performed By: #### 2 06819 #### [address] [address] Cholesterol.total/Opal sterol in HDL [Mass ratio] 3.1 {ratio} Normal 0.0 - 5.0 [facility].; [facility], [facility] Comment on above: Performed By: #### 2 79298 #### [address] [address] Lipid 1996 panel Normal [facility] Comment on above: Result Comment: LIPI D PROFILE Performed By: #### 2 32647 #### [address] [address] Triglyceride [Mass/Vol] 61 mg/dL Normal 0 - 150 [facility].; [facility], [facility]. Comment on above: Performed By: #### 2 05010 #### [facility],[address] [place] [address] Laboratory - Chemistry and C hemistry - challengeon 05-13-2025 Albumin [Mass/Vol] 0.9 g/dL Normal 0.9 - 1.6 [facility].; [facility], [facility] ALP [Catalytic activity/Vol] 129 U/L Abnormal 46 - 116 U/L [facility].; [facility], [facility] Cholesterol in HDL [Mass or moles/Vol] 67 mg/dL Abnormal 40 - 60 mg/dL [facility].; [facility], [facility] Comprehensive metabolic 2000 panel CMP with eGFR Normal [facility].; [facility], [facility] GFR/1.73 sq M.predicted among blacks MDRD (S/P/Bld) [Vol rate/Area] mL/min/{1.73_m2} Normal 60 - 999 {ML/MINUTE} [facility], [facility].; [facility]. GFR/1.73 sq M.predicted MDRD (S/P/Bld) [Vol rate/Area] mL/min/{1.73_m2} Normal 60 - 999 {ML/MINUTE} [facility], [facility].; [facility], [facility] Lipid 1996 panel LIPID PROFILE Normal [facility].; [facility], [facility] Urea nitrogen/Creatinine [Mass ratio] 19 {ratio} Normal 0 - 30 {ratio} [facility]. Laboratory - Hematology and Cell countson 05-13-2025 Basophils (Bld) [#/Vol] 0.01 {3/UL} Normal 0.00 - 0.10 {3/UL} [facility], [facility].; [facility]. CBC W Auto Differential panel (Bld) CBC + DIFF Normal [facility].; [facility], [facility] Eosinophils (Bld) [#/Vol] 0.10 {3/UL} Normal 0.00 - 0.50 {3/UL} [employer] Lymphocytes (Bld) [#/Vol] 1.73 {3/UL} Normal 0.80 - 2.80 {3/UL} [employer] MCHC (RBC) [Mass/Vol] 34 {X10_3} Normal 32 - 3 6 {X10_3} [employer] Monocytes (Bld) [#/Vol] 0.35 {3/UL} Normal 0.20 - 1.00 {3/UL} [employer] Monocytes/100 WBC (Bld) 7.9 % Normal 0.0 - 10.0 % [employer] Neutrophils (Bld) [#/Vol] 2.26 {3/UL} Normal 1.50 - 7.10 {3/UL} [employer] Platelets (Bld) [#/Vol] 206 {3/UL} Normal 150 - 450 {3/UL} [employer] RBC (Bld) [#/Vol] 4.62 {6/UL} Normal 4.10 - 5.3 0 {6/UL} [employer] WBC (Bld) [#/Vol] 4.5 {3/UL} Normal 4.5 - 10.8 {3/UL} [employer] No Panel Informationon 05-13 N/A Normal [employer] 13 mmol/L Normal 10 - 20 mmol/L [employer] 75 {years} Normal [employer] Chest WITH Contraston 2024 Chest WITH Contrast [facility] Services [address] [place] [id number] Chest WITH Contrast MR#: [id number] Acct: [id number] Name: JOHN WOOD Rep #: [id number] : 1950 F 74 From: Tim mclaughlin MD PCP: Dr. Nohemi Lemus MD Status: DEP CLI Study: Chest WITH Contrast Date of Exam: 12/18/24 Exam# [id number] Ordering Dr: Tina John NP AUTOM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 -Han PROCEDURE: CHEST WITH CONTRAST 12/18/2024 REASON FOR EXAM: EXERTIONAL DYSPNEA; H/O BREAST CANCER TECHNIQUE: Prone and supine chest CT with intravenous contrast, high resolution CT (HRCT) protocol. Coronal and Sagittal reconstruction series were provided. CONTRAST: Isovue 370 VOLUME: 69 mL One or more dose reduction techniques were used (e.g., Automated exposure control, adjustment of the mA and/or kV according to patient size, use of iterative reconstruction technique). RADIATION DOSE SUMMARY: CTDlvol: 18.2 mGy DLP: 663.68 mGycm COMPARISON: Limited comparison with prior outside examination dated October 24, 2022. The images were not of good quality. FINDINGS: Hardware: Prior midline sternotomy. The patient is status post right mastectomy. Lymph nodes: No mediastinal hilar or axillary lymphadenopathy. Heart and Vasculature: Coronary artery calcifications are noted. Lungs and Airways: The lungs are normally expanded and clear. No septal thickening nodules or abnormal pulmonary opacities. Pleura: Unremarkable Upper Abdomen: Unremarkable Bones: Bone windows are unremarkable. CT/Chest WITH Contrast IMPRESSION: Coronary artery calcification (CAC) is is present No acute abnormality is seen. Reading Location: [place] [address] CC: AUTOM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-Han John; Dr. Nohemi Lemus MD Motor Bike Mechanic: Signed Normal [facility] Absolute neutrophil countOrd ered By: Tina John on 12-05-2024 Neutrophils (Bld) [#/Vol] 3.5 10*3/uL 2.0-7.7 [facility] Anion gap in Serum or Plasma Ordered By: Tina John on 12-05-2024 Anion gap [Moles/Vol] 11 mmol/L 5-15 [facility] BUN/creatinine ratioOrdered By: Tina John on 12-05-2024 Urea nitrogen/Creatinine [Mass ratio] 25.3 mg/mg High 10- [facility] Basophil percentageOrdered B y: Tina John on 12-05-2024 Basophils/100 WBC (Bld) 0.3 % 0-1 [facility] Bilirubin, totalOrdered By: Tina John on 12-05-2024 Bilirubin [Mass/Vol] 0.32 mg/dL 0.00-1.30 [facility] CBC W/Diff, Automatedon 11-17 0-2024 Absolute Lymph 2.12 X10 3/uL Normal 0.83-4.51 [facility] Comment on above: Performed By: #### L 500.4050, L100.0100 #### [facility] [address] [place], [address] Absolute Neut 3.5 X10 3/uL Normal 2.0-7.7 [facility] Comment on above: Performed By: #### L 500.4050, L100.0100 #### [facility] [address] [place], [address] Basophils/100 WBC (Bld) 0.3 % Normal 0-1 [facility] Comment on above: Performed By: #### L 500.4050, L100.0100 #### [facility] [address] [place], [address] Eosinophils/100 WBC (Bld) 2.0 % Normal 0-5 [facility] Comment on above: Performed By: #### L 500.4050, L100.0100 #### [facility] [address] [place], [address] Erythrocyte distribution width (RBC) [Ratio] 14.3 % Normal 11.6-14.6 [facility] Comment on above: Performed By: #### L 500.4050, L100.0100 #### [facility] [address] [place], [address] Hematocrit (Bld) [Volume fraction] 43.8 % Normal 37-47 [facility] Comment on above: Performed By: #### L 500.4050, L100.0100 #### [facility] [address] [place], [address] Hemoglobin (Bld) [Mass/Vol] 14.6 g/dL Normal 12.0-15.0 [facility] Comment on above: Performed By: #### L 500.4050, L100.0100 #### [facility] [address] [place], [address] IG% 0.600 Normal 0.0-0.9 [facility] Comment on above: Result Comment: IG% - Immature Granulocytes (promyelocytes, myelocytes and metamyelocytes) > 1% indicates that a LEFT SHIFT is Present. Performed By: #### L 500.4050, L100.0100 #### [facility] [address] [place], [address] Lymphocytes/100 WBC (Bld) 32.9 % Normal 19-41 [facility] Comment on above: Performed By: #### L 500.4050, L100.0100 #### [facility] [address] [place], [address] MCH (RBC) [Entitic mass] 30.0 pg Normal 27.0-32.0 [facility] Comment on above: Performed By: #### L 500.4050, L100.0100 #### [facility] [address] [place], [address] MCHC (RBC) [Mass/Vol] 33.3 g/dL Normal 32-36 [facility] Comment on above: Performed By: #### L 500.4050, L100.0100 #### [facility] [address] [place], [address] MCV (RBC) [Entitic vol] 89.9 fL Normal 81-99 [facility] Comment on above: Performed By: #### L 500.4050, L100.0100 #### [facility] [address] [place], [address] Monocytes/100 WBC (Bld) 10.6 % High 0-10 [facility] Comment on above: Performed By: #### L 500.4050, L100.0100 #### [facility] [address] [place], [address] Neutrophils/100 WBC (Bld) 53.6 % Normal 47-70 [facility] Comment on above: Performed By: #### L 500.4050, L100.0100 #### [facility] [address] [place], [address] Nucleated RBC (Bld) [#/Vol] 0 10*3/uL Normal 0-5 [facility] Comment on above: Performed By: #### L 500.4050, L100.0100 #### [facility] [address] [place], [address] Platelet mean volume (Bld) [Entitic vol] 10.3 fL Normal 6.2-12.0 [facility] Comment on above: Performed By: #### L 500.4050, L100.0100 #### [facility] [address] [place], [address] Platelets (Bld) [#/Vol] 175 10*3/uL Normal 150-450 [facility] Comment on above: Performed By: #### L 500.4050, L100.0100 #### [facility] [address] [place], [address] RBC (Bld) [#/Vol] 4.87 10*6/uL Normal 4.2-5.4 [facility] Comment on above: Performed By: #### L 500.4050, L100.0100 #### [facility] [address] [place], [address] RDW SD 47.0 fl High 35.1-43.9 [facility] Comment on above: Performed By: #### L 500.4050, L100.0100 #### [facility] [address] [place], [address] WBC (Bld) [#/Vol] 6.4 10*3/uL Normal 4.4-11.0 [facility] Comment on above: Performed By: #### L 500.4050, L100.0100 #### [facility] [address] [place], [address] Carbon dioxide, total [Moles /volume] in Central venous bloodOrdered By: Tina John on 12-05-2024 CO2 [Moles/Vol] 22.5 mmol/L 21.0-32.0 [facility] Chloride assayOrdered By: Ty ra John on 12-05-2024 Chloride [Moles/Vol] 107 mmol/L 98-108 [facility] Comprehensive Metabolic Prof ilon 12-05-2024 Albumin [Mass/Vol] 3.9 g/dL Normal 3.4-4.8 [facility] Comment on above: Performed By: #### L 500.4050, L100.0100 #### [facility] [address] [place], [address] Albumin/Globulin [Mass ratio] 1.3 {ratio} Normal 0.9-2.4 [facility] Comment on above: Performed By: #### L 500.4050, L100.0100 #### [facility] [address] [place], [address] ALK PHOS 133 U/L High 35-104 [facility] Comment on above: Performed By: #### L 500.4050, L100.0100 #### [facility] [address] [place], [address] ALT [Catalytic activity/Vol] 18 U/L Normal <=34 [facility] Comment on above: Performed By: #### L 500.4050, L100.0100 #### [facility] [address] [place], [address] AST [Catalytic activity/Vol] 25 U/L Normal <=31 [facility] Comment on above: Performed By: #### L 500.4050, L100.0100 #### [facility] [address] [place], [address] Bilirubin [Mass/Vol] 0.32 mg/dL Normal 0.00-1.30 [facility] Comment on above: Performed By: #### L 500.4050, L100.0100 #### [facility] [address] [place], [address] BUN/CRE 25.3 RATIO High 10-20 [facility] Comment on above: Performed By: #### L 500.4050, L100.0100 #### [facility] [address] [place], [address] Calcium [Mass/Vol] 9.1 mg/dL Normal 7.6-11.0 [facility] Comment on above: Performed By: #### L 500.4050, L100.0100 #### [facility] [address] [place], [address] Chloride [Moles/Vol] 107 mmol/L Normal 98-108 [facility] Comment on above: Performed By: #### L 500.4050, L100.0100 #### [facility] [address] [place], [address] CO2 [Moles/Vol] 22.5 mmol/L Normal 21.0-32.0 [facility] Comment on above: Performed By: #### L 500.4050, L100.0100 #### [facility] [address] [place], [address] Creatinine [Mass/Vol] 0.82 mg/dL Normal 0.70-1.20 [facility] Comment on above: Performed By: #### L 500.4050, L100.0100 #### [facility] [address] [place], [address] ECRCL 76.56 ml/min Normal 50-250 [facility] Comment on above: Performed By: #### L 500.4050, L100.0100 #### [facility] [address] [place], [address] GAP 11 Normal 5-15 [facility] Comment on above: Performed By: #### L 500.4050, L100.0100 #### [facility] [address] [place], [address] GFR/1.73 sq M.predicted among non-blacks MDRD (S/P/Bld) [Vol rate/Area] 76 mL/min/{1.73_m2} Normal >60 [facility] Comment on above: Result Comment: mL/m in/1.73m2 CKD-EPI Creatinine Equation (2020) Performed By: #### L 500.4050, L100.0100 #### [facility] [address] [place], [address] Globulin (S) [Mass/Vol] 3.0 g/dL Normal 2.2-4.2 [facility] Comment on above: Performed By: #### L 500.4050, L100.0100 #### [facility] [address] [place], [address] Glucose [Mass/Vol] 89 mg/dL Normal 70-99 [facility] Comment on above: Performed By: #### L 500.4050, L100.0100 #### [facility] [address] [place], [address] Potassium [Moles/Vol] 4.3 mmol/L Normal 3.3-5.1 [facility] Comment on above: Performed By: #### L 500.4050, L100.0100 #### [facility] [address] [place], [address] Sodium [Moles/Vol] 141 mmol/L Normal 133-145 [facility] Comment on above: Performed By: #### L 500.4050, L100.0100 #### [facility] [address] [place], [address] T PROT 6.9 g/dL Normal 5.9-8.4 [facility] Comment on above: Performed By: #### L 500.4050, L100.0100 #### [facility] [address] [place], [address] Urea nitrogen [Mass/Vol] 21 mg/dL High 4-19 [facility] Comment on above: Performed By: #### L 500.4050, L100.0100 #### [facility] [address] [place], [address] Eosinophil percentageOrdered By: Tina John on 12-05-2024 Eosinophils/100 WBC (Bld) 2.0 % 0-5 [facility] Erythrocyte distribution wid th (RBC) [Ratio]Ordered By: Tian John on 12-05-2024 Erythrocyte distribution width (RBC) [Entitic vol] 47.0 fL High 35.1-43.9 [facility] Erythrocyte distribution wid th ratioOrdered By: Tina John on 12-05-2024 Erythrocyte distribution width (RBC) [Ratio] 14.3 % 11.6-14.6 [facility] Estimation of creatinine tomy aranceOrdered By: Tina John on 12-05-2024 Estimated Creatinine Clearance Calc 76.56 ml/min 50-250 [facility] GFR/1.73 sq M.predicted tamhina g non-blacks MDRD (S/P/Bld) [Vol rate/Area]Ordered By: Tina John on 12-05-2024 Estimated GFR (MDRD) Non-Af Amer 76 >60 [facility] Comment on above: mL/min/1.73m2 CKD-EP I Creatinine Equation (2020) Hematocrit Auto (Bld) [Volum e fraction]Ordered By: Tina John on 12-05-2024 Hematocrit (Bld) [Volume fraction] 43.8 % 37-47 [facility] Hemoglobin measurementOrdere d By: Tina John on 12-05-2024 Hemoglobin (Bld) [Mass/Vol] 14.6 g/dL 12.0-15.0 [facility] Immature granulocytes/100 WB C Auto (Bld)Ordered By: Tina John on 12-05-2024 Immature granulocytes/100 WBC (Bld) 0.600 % 0.0-0.9 [facility] Comment on above: IG% - Immature Granu locytes (promyelocytes, myelocytes and metamyelocytes) > 1% indicates that a LEFT SHIFT is Present. Laboratory - Chemistry and C hemistry - challengeOrdered By: Tina John on 12-05-2024 AST [Catalytic activity/Vol] 25 U/L <32 [facility] Lymphocytes Auto (Unsp spec) [#/Vol]Ordered By: Tina John on 12-05-2024 Lymphocytes (Bld) [#/Vol] 2.12 10*3/uL 0.83-4.51 [facility] Lymphocytes/100 WBC Auto (Un sp spec)Ordered By: Tina John on 12-05-2024 Lymphocytes/100 WBC (Bld) 32.9 % 19-41 [facility] MCV (mean corpuscular volume ) determinationOrdered By: Tina John on 12-05-2024 MCV (RBC) [Entitic vol] 89.9 fL 81-99 [facility] Mean corpuscular hemoglobin (MCH) determinationOrdered By: Tina John on 12-05-2024 MCH (RBC) [Entitic mass] 30.0 pg 27.0-32.0 [facility] Mean corpuscular hemoglobin concentration (MCHC) determinationOrdered By: Tina John on 12-05-2024 MCHC (RBC) [Mass/Vol] 33.3 g/dL 32-36 [facility] Mean platelet volume determi nationOrdered By: Tina John on 12-05-2024 Platelet mean volume (Bld) [Entitic vol] 10.3 fL 6.2-12.0 [facility] Monocyte percentageOrdered B y: Tina John on 12-05-2024 Monocytes/100 WBC (Bld) 10.6 % High 0-10 [facility] Neutrophil percentageOrdered By: Tina John on 12-05-2024 Neutrophils/100 WBC (Bld) 53.6 % 47-70 [facility] Nucleated red blood cell per centageOrdered By: Tina John on 12-05-2024 Nucleated RBC/100 WBC (Bld) [Ratio] 0 % 0-5 [facility] Oncology Visit Reporton 11-17 Oncology Visit Report [facility] [address] [place] [id number] OFFICE VISIT Date of Service: 12/05/24 1322 MR#: [id number] Acct: [id number] Name: JOHN WOOD Rep #: [id number] : 1950 From: Tina John NP 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 -C Age/Sex: 74/F [place] [facility] Status: Signed HPI Subjective Date of Service 12/05/24 Chief Complaint Breast cancer History of Present Illness 74-year-old female who presented after an abnormal screening mammogram. She has no family history of breast cancer but her mother in her 40s with metastatic colon cancer. Patient has been vigilant with screening mammographies and colonoscopies. September 14, 2022 screening mammogram: Right breast mass subareolar measuring 19 mm in maximum diameter. Left breast focal calcifications unchanged from August 2021. September 14, 2022 ultrasound: Right breast solid suspicious lesion subareolar measuring 19 mm in maximum diameter. Left breast: No significant suspicious findings. October 05, 2022 right breast core biopsy: Invasive ductal carcinoma, grade 3, ER positive (98%, strong) MT positive (95 percent, strong) HER2 focal equivocal 2+ by IHC negative by FISH. October 24, 2022 CT scan chest abdomen and pelvis: No evidence for metastatic disease. October 2022 bone scan: No evidence for metastatic disease November 21, 2022: Right breast mastectomy: Invasive ductal cancer, grade 3, 20 mm in maximum diameter, lymphovascular invasion not identified, DCIS found, margins negative, 6 lymph nodes negative for metastatic cancer Oncotype Dx score of 7 ( low risk) Treatment summary and response: December 11, 2022 right breast mastectomy with sentinel lymph node biopsy. Adjuvant hormonal therapy with Arimidex December 2022 Interval History The patient is presenting to clinic for a planned 3 month follow up. + hot flashes intermittently, no sleep disturbance. Confirms good adherence and tolerance to AI at this time, joint/muscle pain, vaginal dryness, or fatigue. States she developed low back pain, underwent an MRI of the lumbar spine at [facility]. Has met with ortho, to start PT and pain management. Reports development of exertional dyspnea. Shared these concerns with her director of recruitment and admissions, Dr. Theresa Little who couldn't say it was because of my heart. No cough, wheezing, CP, or changes in her voice. Describes as mild. Specifically denies weight loss, headaches, palpitations, bone pain, abd pain, changes in her bowel habits. Further denies any changes along right chest wall or within the left breast. [facility] Medical History Left breast mass Encounter for education History of colon polyps Coronary artery disease Dyslipidemia GERD (gastroesophageal reflux disease) Primary cancer of right female breast Microscopic colitis Dysuria UTI (urinary tract infection) Carpal tunnel syndrome Obesity Invasive ductal carcinoma of right breast Surgical History S/P lumpectomy, left breast History of total mastectomy of left breast History of delivery S/P cholecystectomy History of carpal tunnel surgery H/O aortic valve replacement Family History Father Heart disease Mother Cancer Social History Smoking Status: Never smoker alcohol intake: current alcohol intake frequency: holidays/special occasions only ROS ROS Narrative Negative except as documented in the interval HPI Intake Vital Signs 09/02/24 13:28 11/29/24 14:04 12/05/24 13:24 12/05/24 13:28 Height 5 ft 7 in 5 ft 7 in 5 ft 7 in 5 ft 7 in Weight: 227 lb 5 oz BMI 35.6 BP 118/76 Blood Pressure Location Lt brachial Position Sitting Respiration 16 Pulse 73 Pulse Source Monitor Temp 97.3 F L Temperature Source Temporal Artery Pulse Oximetry (%) 96 Oxygen Delivery Method room air Intake Is patient in pain?: Yes (chronic back pain ) Pain scale (1-10): 4 Allergies latex Allergy (Verified 12/05/24 13:27) Rash Sulfa (Sulfonamide Antibiotics) Allergy (Verified 12/05/24 13:27) Itching morphine Adverse Reaction (Verified 12/05/24 13:27) confusion Medications ???Medication ???Instructions ???Recorded ???Confirmed ???Type aspirin 81 mg chewable tablet 81 mg PO DAILY@0800 09/12/1912/05 History atorvastatin 20 mg tablet 20 mg PO DAILY 09/12/19 12/05/24 H istory metoprolol tartrate 25 mg tablet 25 mg PO DAILY 09/12/19 12/05/24 H istory omeprazole 40 mg capsule,delayed 40 mg PO DAILY 09/12/19 12/05/24 H istory release loperamide 2 mg capsule 2 mg PO Q6H PRN 10/24/22 12/05/24 History ezetimibe 10 mg tablet 10 mg PO DAILY 10/27/22 12/05/24 H istory c (more content not included)... Normal [facility] Platelet countOrdered By: Peterson John on 12-05-2024 Platelets (Bld) [#/Vol] 175 10*3/uL 150-450 [facility] Potassium (Unsp spec) [Mass/ Vol]Ordered By: Tina John on 12-05-2024 Potassium [Moles/Vol] 4.3 mmol/L 3.3-5.1 [facility] RBC Auto (Bld) [#/Vol]Ordere d By: Tina John on 12-05-2024 RBC (Bld) [#/Vol] 4.87 10*6/uL 4.2-5.4 [facility] Serum creatinine measurement (mass/volume)Ordered By: Tina John on 12-05-2024 Creatinine [Mass/Vol] 0.82 mg/dL 0.70-1.20 [facility] Serum globulin measurementOr dered By: Tina John on 12-05-2024 Globulin (S) [Mass/Vol] 3.0 g/dL 2.2-4.2 [facility] Serum glucose measurement (m ass/volume)Ordered By: Tina John on 12-05-2024 Glucose [Mass/Vol] 89 mg/dL 70-99 [facility] Serum or plasma alanine hendricks otransferase (ALT) measurementOrdered By: Tina John on 12-05-2024 ALT [Catalytic activity/Vol] 18 U/L <35 [facility] Serum or plasma albumin moises urement (mass/volume)Ordered By: Tina John on 12-05-2024 Albumin [Mass/Vol] 3.9 g/dL 3.4-4.8 [facility] Serum or plasma albumin/glob ulin mass ratioOrdered By: Tina John on 12-05-2024 Albumin/Globulin [Mass ratio] 1.3 {ratio} 0.9-2.4 [facility] Serum or plasma alkaline eugenie sphatase measurementOrdered By: Tina John on 12-05-2024 ALP [Catalytic activity/Vol] 133 U/L High 35-104 [facility] Serum or plasma calcium moises urement (mass/volume)Ordered By: Tina John on 12-05-2024 Calcium [Mass/Vol] 9.1 mg/dL 7.6-11.0 [facility] Serum or plasma urea nitroge n measurement (mass/volume)Ordered By: Tina John on 12-05-2024 Urea nitrogen [Mass/Vol] 21 mg/dL High 4-19 [facility] Sodium levelOrdered By: Tina John on 12-05-2024 Sodium [Moles/Vol] 141 mmol/L 133-145 [facility] Total proteinOrdered By: Randi John on 12-05-2024 Protein [Mass/Vol] 6.9 g/dL 5.9-8.4 [facility] White blood cell (WBC) count Ordered By: Tina John on 12-05-2024 WBC (Bld) [#/Vol] 6.4 10*3/uL 4.4-11.0 [facility] L/S Spine Min 4 Viewson 11-16 L/S Spine Min 4 Views [facility] [address] [place], [place] [id number] L/S Spine Min 4 Views MR#: [id number] Acct: [id number] Name: JOHN WOOD Rep #: [id number] : 1950 F 74 From: Bereket Cristina MD PCP: Dr. Nohemi Lemus MD Status: DEP AMB Study: L/S Spine Min 4 Views Date of Exam: 11/29/24 Exam# [id number] Ordering Dr: Danielle Villeda EXAM: XR Lumbosacral Spine, 4 or 5 Views CLINICAL INDICATION: CHRONIC PAIN TECHNIQUE: Frontal, lateral and bilateral oblique views of the lumbar spine. COMPARISON: No relevant prior studies available. FINDINGS: VERTEBRAE: Moderate endplate degenerative changes, disc disease and facet arthropathy of L3-S1. Normal alignment. No acute fracture or significant dynamic instability. SACRUM/COCCYX: Unremarkable as visualized. No acute fracture. DISC SPACES: No acute findings. No significant narrowing. SOFT TISSUES: Unremarkable. RAD/L/S Spine Min 4 Views IMPRESSION: No acute fracture or significant dynamic instability. Reading [facility] CC: ANNA Good; Dr. Nohemi Lemus MD Motor Bike Mechanic: Signed Normal [facility] Orthopedic Visit Reporton Orthopedic Visit Report [facility] [address] [place] [address] OFFICE VISIT Date of Service: 11/29/24 MR#: [id number] Acct: [id number] Name: JOHN WOOD Rep #: [id number] : 1950 Provider: ANNA Good Age/Sex: 74/F [place] [facility] [place] Status: Signed Intake Vital Signs 09/02/24 13:28 11/29/24 14:04 Height 5 ft 7 in 5 ft 7 in Weight: 222 lb BMI 34.7 Intake Visit Reasons: LUMBAR SPINE Chief Complaint: Lumbar spine pain Accompanied by: Is patient in pain?: Yes Pain scale (1-10): 2 Allergies latex Allergy (Verified 11/29/24 14:04) Rash Sulfa (Sulfonamide Antibiotics) Allergy (Verified 11/29/24 14:04) Itching morphine Adverse Reaction (Verified 11/29/24 14:04) confusion Medications ???Medication ???Instructions ???Recorded ???Confirmed ???Type aspirin 81 mg chewable tablet 81 mg PO DAILY@0800 09/12/1911/29 History atorvastatin 20 mg tablet 20 mg PO DAILY 09/12/19 11/29/24 H istory metoprolol tartrate 25 mg tablet 25 mg PO DAILY 09/12/19 11/29/24 H istory omeprazole 40 mg capsule,delayed 40 mg PO DAILY 09/12/19 11/29/24 H istory release isosorbide mononitrate 30 mg 30 mg PO DAILY 10/24/22 11/29/24 H istory tablet,extended release 24 hr loperamide 2 mg capsule 2 mg PO Q6H PRN 10/24/22 11/29/24 History ezetimibe 10 mg tablet 10 mg PO DAILY 10/27/22 11/29/24 H istory calcium carbonate (Calcium 600) 600 mg PO DAILY 03/27/23 11/29/24 History cholecalciferol (vitamin D3) 50 50 mcg PO DAILY 03/27/23 11/29/24 History mcg (2,000 unit) capsule anastrozole 1 mg tablet 1 mg PO DAILY #90 TABLETS 02/15/24 11/29/24 Rx evolocumab 140 mg/mL subcutaneous 140 mg subcut Q2W 11/29/24 History pen injector (Kely Parker) Have you fallen in the past year?: No PFSH Medical History Left breast mass Encounter for education History of colon polyps Coronary artery disease Dyslipidemia GERD (gastroesophageal reflux disease) Primary cancer of right female breast Microscopic colitis Dysuria UTI (urinary tract infection) Carpal tunnel syndrome Obesity Invasive ductal carcinoma of right breast Surgical History S/P lumpectomy, left breast History of total mastectomy of left breast History of delivery S/P cholecystectomy History of carpal tunnel surgery H/O aortic valve replacement Family History Father Heart disease Mother Cancer Social History Smoking Status: Never smoker alcohol intake: current alcohol intake frequency: holidays/special occasions only HPI LUMBAR SPINE Details: This documentation accurately reflects the service provided and the decisions made by me, ANNA Good 11/29/24 2087. Part of today???s visit was documented by Aleksander Dejesus MA, acting as scribe. JOHN WOOD is a 74 year old F here today for lumbar spine pain. This has been going on for a long time. Patient started having stabbing and burning pain in the last 2 months, which was in the left leg. She is just having a dull ache in her back. Patient is having lower back pain. She went to a chiropractor about [address] Rodriguez stated generative disc disease. Patient's balance isn't the best. The pain hurts worse when standing. Says that she can only stand for a couple minutes at a time before her pain increases and she needs to sit down. She denies any increasing pain with walking. Denies any pain down the legs with walking. Patient reports lateral left leg pain. Denies any right sided involvement. Nothing seems to cause the leg pain. No prior back surgeries, no recent physical therapy., No injections. No recent treatment. Takes Advil 400mg as needed for her pain with mild benefit. Doesn't need to lean on a shopping cart when grocery shopping. Does not use a walker or cane. No blood thinners, no diabetes, no heart or lung issues, takes a baby aspirin. History of breast cancer but did not need chemo or radiation. Patient denies any dexterity issues. Ortho Exam General General: Yes no acute distress Neurologic: Yes alert and Yes oriented x3 Spine SPINE TESTING CERVICAL THORACIC LUMBAR Musculoskeletal Strength 0=absent - 5=normal Details: Neurological exam of the lower extremities shows 5x5 power. Normal sensations across all dermatomes. No hyperreflexia. No midline or paraspinal tenderness. Coding Level of Care Code Off vis,new,level 4 Diagnoses Lumbar stenosis without neurogenic claudication M48.061 Degeneration of intervertebral disc of lumbar region (more content not included)... Normal [facility] MR LUMBAR SP WO CONTRASTon 0 11-12-2024 MR LUMBAR SP WO CONTRAST [facility] [address] [place], [place] [address] Patient: JOHN WOOD Phone#: : 1950 Age: 74 Gender: F Pt. Type: Out Account: [id number] Location: [facility] Ordering: NOHEMI LEMUS Exam Date: 11/12/2024/13:53 Family Phys: Charge Code: [id number] Physician: Taylor Order #: [id number] Dose#: PROCEDURE: MRI LUMBAR SPINE WITHOUT CONTRAST COMPARISON: None. INDICATIONS: Leg weakness and tingling TECHNIQUE: A variety of imaging planes and parameters were utilized for visualization of suspected pathology. FINDINGS: PARASPINAL AREA: Normal with no visible mass. BONES: Multilevel degenerative changes present. CORD/CAUDA EQUINA: Normal caliber, contour, and signal intensity. LUMBAR DISC LEVELS: L1-L2: No significant disc/facet abnormality, spinal stenosis, or foraminal stenosis. L2-L3: Broad-based annular bulging is present. There is mild right foraminal narrowing. There is moderate to severe left foraminal narrowing. There is moderate narrowing of the spinal canal. There is bony hypertrophy at the articular facettes. Disc space narrowing is present. L3-L4: Disc space narrowing is present. There is disc degeneration. Bony hypertrophy is present at the articular facettes. There is annular disc bulging. There is severe narrowing of the spinal canal. There is moderate right foraminal narrowing. There is moderate to severe left foraminal narrowing. L4-L5: Disc space narrowing is present. There is bony hypertrophy at the articular facettes. There is annular disc bulging. Bright signal dorsally is consistent with annular rupture. There is severe narrowing of the spinal canal. There is severe bilateral foraminal narrowing. L5-S1: Disc degeneration is present. There is annular disc bulging. There is focal dorsal herniation. Bright signal dorsally is consistent with annular rupture. There is severe foraminal narrowing. There is moderate spinal canal narrowing. CONCLUSION: 1. Multilevel degenerative changes of the spine are present. 2. Disc space narrowing is present at L2 through S1. 3. There is moderate to severe narrowing of the spinal canal at the L 2 3, L3-4 and L4-5 levels. 4. There is severe right foraminal narrowing at L4-5 and L5-S1. 5. There is severe left foraminal narrowing at L2-3, L3-4, L4-5 and L5-S1 levels. Continued Report - Page 2 of 2 Patient: JOHN WOOD Phone#: : 1950 Age: 74 Gender: F Pt. Type: Out Account: [id number] Location: [facility] Ordering: NOHEMI LEMUS Exam Date: 11/12/2024/13:53 Family Phys: Charge Code: [id number] Physician: Taylor Order #: [id number] Dose#: Dictated by: Amalia Issa MD on 11/13/2024 at 19:16 Approved by: Amalia Issa MD on 11/13/2024 at 19:23 Normal [facility] LIPID PROFILEon 09-03-2024 Cholesterol [Mass/Vol] 161 mg/dL Normal 0 - 240 [facility] Comment on above: Performed By: #### 2 [id number] #### [facility],[address] [place] [address] Cholesterol in HDL [Mass/Vol] 78 mg/dL High 40 - 60 [facility] Comment on above: Performed By: #### 2 [id number] #### [facility],[address] [place] [address] Cholesterol in LDL [Mass/Vol] 73 mg/dL Normal 0 - 129 [facility] Comment on above: Performed By: #### 2 [id number] #### [facility],[address] [place] [address] Cholesterol.total/Opal sterol in HDL [Mass ratio] 2.1 {ratio} Normal 0.0 - 5.0 [facility] Comment on above: Performed By: #### 2 [id number] #### [facility],[address] [place] [address] Lipid 1996 panel Normal [facility] Comment on above: Result Comment: LIPI D PROFILE Performed By: #### 2 [id number] #### [facility],[address] [place] [address] Triglyceride [Mass/Vol] 52 mg/dL Normal 0 - 150 [facility] Comment on above: Performed By: #### 2 [id number] #### [facility],[address] [place] [address] Oncology Visit Reporton 08-18 Oncology Visit Report [facility] [address] [place], [place] [id number] OFFICE VISIT Date of Service: 09/02/24 1322 MR#: [id number] Acct: [id number] Name: JOHN WOOD Rep #: [id number] : 1950 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 She has no family history of breast cancer but her mother in her 40s with metastatic colon cancer. Patient has been vigilant with screening mammographies and colonoscopies. September 14, 2022 screening mammogram: Right breast mass subareolar measuring 19 mm in maximum diameter. Left breast focal calcifications unchanged from August 2021. September 14, 2022 ultrasound: Right breast solid suspicious lesion subareolar measuring 19 mm in maximum diameter. Left breast: No significant suspicious findings. October 05, 2022 right breast core biopsy: Invasive ductal carcinoma, grade 3, ER positive (98%, strong) MT positive (95 percent, strong) HER2 focal equivocal 2+ by IHC negative by FISH. October 24, 2022 CT scan chest abdomen and pelvis: No evidence for metastatic disease. October 2022 bone scan: No evidence for metastatic disease November 21, 2022: Right breast mastectomy: Invasive ductal cancer, grade 3, 20 mm in maximum diameter, lymphovascular invasion not identified, DCIS found, margins negative, 6 lymph nodes negative for metastatic cancer Oncotype Dx score of 7 ( low risk) Treatment summary and response: December 11, 2022 right breast mastectomy with sentinel lymph node biopsy. Adjuvant hormonal therapy with Arimidex December 2022 Interval History The patient is presenting to clinic for a planned 3 month follow up. Confirms good adherence and tolerance to AI at this time, no hot flashes, joint/muscle pain, vaginal dryness, or fatigue. Specifically denies weight loss, headaches, CP, palpitations, cough, SOB, bone pain, abd pain, changes in her bowel habits. Further denies any changes along right chest wall or within the left breast. Bone density exam scheduled for January 14, 2025. [facility] Medical History Left breast mass Encounter for education History of colon polyps Coronary artery disease Dyslipidemia GERD (gastroesophageal reflux disease) Primary cancer of right female breast Microscopic colitis Dysuria UTI (urinary tract infection) Carpal tunnel syndrome Obesity Invasive ductal carcinoma of right breast Surgical History S/P lumpectomy, left breast History of total mastectomy of left breast History of delivery S/P cholecystectomy History of carpal tunnel surgery H/O aortic valve replacement Family History Father Heart disease Mother Cancer Social History Smoking Status: Never smoker alcohol intake: current alcohol intake frequency: holidays/special occasions only ROS ROS Narrative Negative except as documented in the interval HPI Intake Vital Signs 06/10/24 11:01 09/02/24 13:25 09/02/24 13:28 Height 5 ft 9 in 5 ft 9 in 5 ft 7 in Weight: 217 lb 2 oz 220 lb 8 oz BMI 32.1 34.5 BP 124/84 H 136/79 H Blood Pressure Location Lt brachial Lt brachial Position Sitting Sitting Respiration 18 16 Pulse 80 75 Pulse Source Monitor Monitor Temp 97.0 F L 97.5 F L Temperature Source Temporal Artery Temporal Artery Pulse Oximetry (%) 97 96 Oxygen Delivery Method room air room air Intake Is patient in pain?: No Allergies latex Allergy (Verified 09/02/24 13:28) Rash Sulfa (Sulfonamide Antibiotics) Allergy (Verified 09/02/24 13:28) Itching morphine Adverse Reaction (Verified 09/02/24 13:28) confusion Medications ???Medication ???Instructions ???Recorded ???Confirmed ???Type aspirin 81 mg chewable tablet 81 mg PO DAILY@0800 09/12/19 09/02/24 History atorvastatin 20 mg tablet 20 mg PO DAILY 09/12/19 09/02/24 History metoprolol tartrate 25 mg tablet 25 mg PO DAILY 09/12/19 09/02/24 History omeprazole 40 mg capsule,delayed 40 mg PO DAILY 09/12/19 09/02/24 History release sertraline 100 mg tablet 100 mg PO DAILY 09/12/19 09/02/24 History isosorbide mononitrate 30 mg 30 mg PO DAILY 10/24/22 09/02/24 History tablet,extended release 24 hr loperamide 2 mg capsule 2 mg PO Q6H PRN 10/24/22 09/02/24 History ezetimibe 10 mg tablet 10 mg PO DAILY 10/27/22 09/02/24 History calcium carbonate (Calcium 600) 600 mg PO DAILY 03/27/23 09/02/24 History cholecalciferol (vitamin D3) 50 50 mcg PO DAILY 03/27/23 09/02/24 His (more content not included)... Normal [facility] - Hematology and Cell countson 05-29-2024 HbA1c (Bld) [Mass fraction] 5.7 % Normal 4.6 - 7.1 % [facility], [facility].; [employer] [facility], [facility]. Laboratory - Chemistry and C hemistry - challengeon 05-16-2024 Albumin [Mass/Vol] 3.5 g/dL Normal 3.4 - 5.0 g/dL [facility], [facility].; [employer] [facility], [facility]. Albumin [Mass/Vol] 0.9 g/dL Normal 0.9 - 1.6 [facility], [facility].; [facility], [facility]. ALP [Catalytic activity/Vol] 156 U/L Abnormal 46 - 116 U/L [facility].; [facility]. ALT [Catalytic activity/Vol] 23 U/L Normal 16 - 63 U/L [facility].; [facility], [facility]. AST [Catalytic activity/Vol] 21 U/L Normal 13 - 39 U/L [facility].; [facility] Bilirubin [Mass/Vol] 0.5 mg/dL Normal 0.2 - 1 .0 mg/dL [facility].; [facility], [facility] Calcium [Mass/Vol] 8.9 mg/dL Normal 8.5 - 10. 1 mg/dL [facility]; [facility]. Chloride [Moles/Vol] 104 mmol/L Normal 98 - 10 7 mmol/L [facility]; [facility], [facility] Cholesterol [Mass/Vol] 175 mg/dL Normal 0 - 2 40 mg/dL [facility].; [facility] Cholesterol in HDL [Mass or moles/Vol] 73 mg/dL Abnormal 40 - 60 mg/dL [facility].; [facility] Cholesterol in LDL [Mass/Vol] 90 mg/dL Normal 0 - 129 mg/dL [facility].; [facility] Cholesterol.total/Opal sterol in HDL [Mass ratio] 2.4 {ratio} Normal 0.0 - 5.0 [facility]; [facility] CO2 [Moles/Vol] 25.5 mmol/L Normal 21.0 - 32.0 mmol/L [facility].; [facility] Comprehensive metabolic 2000 panel CMP with eGFR Normal [facility]; [facility] Creatinine [Mass/Vol] 0.95 mg/dL Normal 0.55 - 1.02 mg/dL [facility].; [facility], [facility]. GFR/1.73 sq M.predicted among blacks MDRD (S/P/Bld) [Vol rate/Area] mL/min/{1.73_m2} Normal 60 - 999 {ML/MINUTE} [facility].; [facility]. GFR/1.73 sq M.predicted MDRD (S/P/Bld) [Vol rate/Area] 58 {ML/MINUTE} Abnormal 60 - 999 {ML/MINUTE} [facility].; [facility], [facility] Globulin (S) [Mass/Vol] 3.7 g/dL Normal 1.5 - 3.8 g/dL [facility].; [facility], [facility] Glucose [Mass/Vol] 112 mg/dL Abnormal 74 - 106 mg/dL [facility].; [facility], [facility] Lipid 1996 panel LIPID PROFILE Normal [facility]; [facility], [facility] Potassium [Moles/Vol] 4.4 mmol/L Normal 3.5 - 5.1 mmol/L [facility].; [facility], [facility] Protein [Mass/Vol] 7.2 g/dL Normal 6.4 - 8.2 g/dL [facility].; [facility], [facility]. Sodium [Moles/Vol] 140 mmol/L Normal 136 - 145 mmol/L [facility].; [employer] [facility], [facility]. Triglyceride [Mass/Vol] 62 mg/dL Normal 0 - 150 mg/dL [facility].; [facility], [facility]. Urea nitrogen [Mass/Vol] 14 mg/dL Normal 7 - 18 mg/dL [facility], [facility].; [employer] [facility], [facility]. Urea nitrogen/Creatinine [Mass ratio] 15 {ratio} Normal 0 - 30 {ratio} [facility].; [facility], [facility]. Laboratory - Hematology and Cell countson 05-16-2024 Basophils (Bld) [#/Vol] 0.01 {3/UL} Normal 0.00 - 0.10 {3/UL} [facility].; [facility], [facility] Basophils/100 WBC (Bld) 0.3 % Normal 0.0 - 2.0 % [facility], [facility].; [employer] [facility], [facility]. CBC W Auto Differential panel (Bld) CBC + DIFF Normal [facility].; [facility] Eosinophils (Bld) [#/Vol] 0.10 {3/UL} Normal 0.00 - 0.50 {3/UL} [facility], [facility].; [facility]. Eosinophils/100 WBC (Bld) 1.8 % Normal 0.0 - 7.0 % [facility], [facility].; [facility], [facility] Erythrocyte distribution width (RBC) [Ratio] 13.7 % Normal 12.0 - 15.6 % [facility].; [facility], [facility] Hematocrit (Bld) [Volume fraction] 42.8 % Normal 34.0 - 46.0 % [facility], [facility].; [facility], [facility] Hemoglobin (Bld) [Mass/Vol] 14.5 g/dL Normal 12.0 - 16.0 g/dL [facility].; [facility], [facility] Lymphocytes (Bld) [#/Vol] 1.78 {3/UL} Normal 0.80 - 2.80 {3/UL} [facility].; [facility], [facility]. Lymphocytes/100 WBC (Bld) 32.6 % Normal 20.0 - 45.0 % [facility].; [facility], [facility]. MCH (RBC) [Entitic mass] 30 pg Normal 27 - 33 pg [facility].; [facility], [facility]. MCHC (RBC) [Mass/Vol] 34 {X10_3} Normal 32 - 3 6 {X10_3} [facility], [facility].; [facility], [facility]. MCV (RBC) [Entitic vol] 90 fL Normal 80 - 99 fL [facility].; [employer] [facility], [facility]. Monocytes (Bld) [#/Vol] 0.50 {3/UL} Normal 0.20 - 1.00 {3/UL} [facility], [facility].; [employer], [facility]. Monocytes/100 WBC (Bld) 9.2 % Normal 0.0 - 10.0 % [facility], [facility].; [employer] [facility], [facility] Neutrophils (Bld) [#/Vol] 3.06 {3/UL} Normal 1.50 - 7.10 {3/UL} [employer] [facility] Neutrophils/100 WBC (Bld) 56.1 % Normal 46.0 - 76.0 % [employer].; [employer] Platelet mean volume (Bld) [Entitic vol] 7.9 fL Normal 6.6 - 10.5 fL [facility].; [employer], [employer]. Platelets (Bld) [#/Vol] 178 {3/UL} Normal 150 - 450 {3/UL} [facility].; [employer], [employer] RBC (Bld) [#/Vol] 4.78 {6/UL} Normal 4.10 - 5.3 0 {6/UL} [facility].; [employer], [employer]. WBC (Bld) [#/Vol] 5.5 {3/UL} Normal 4.5 - 10.8 {3/UL} [employer] No Panel Informationon 05-16 N/A Normal [employer].; [employer] 15 mmol/L Normal 10 - 20 mmol/L [facility].; [employer], [employer] 72 {years} Normal [facility].; [employer], [employer] Estimated glomerular filtrat ion rate (GFR) AmericanOrdered By: Angel Frost on 02-20-2024 Estimated GFR (MDRD) Amer 83 mL/min >60 [facility] Comment on above: GFR Calc Laboratory - Microbiology an d Antimicrobial susceptibilityon 10-23-2023 FLUAV Ag IA Ql (Throat) Negative Normal [facility].; [employer]. No Panel Informationon 10-23 Negative Normal [facility] [facility].; [employer], [employer]. No Panel Informationon 10-05 196 mg/dL Normal [facility] [facility].; [employer] 71 mg/dL Normal [employer] 76 mg/dL Normal [facility].; [employer] 108 Abnormal [facility] [facility].; [facility]. 2.8 Normal [facility] [facility].; [employer] 125 Normal [facility] [facility].; [employer]. Final Surgical Pathology Rep frida 06-21-2023 Final Surgical Pathology Report . Pathology Reports Accession: Collected Date/Time: Received Date/Time: Pathologist: [id number] 06/16/2023 08:11 EDT 06/19/2023 08:11 EDT MAURICIO CHRISTENSEN MD Final Surgical Pathology Report DIAGNOSIS: LEFT BREAST LESION, 11:00, LUMPECTOMY: - MATURE ADIPOSE TISSUE, CONSISTENT WITH LIPOMA Comment: The entire specimen was submitted for microscopic evaluation. A circumscribed area of mature adipose tissue is present. In the correct clinical and radiologic context, these findings would be consistent with a lipoma. No histologic evidence of malignancy. COMMENT: [facility] - [id number] CLINICAL INFORMATION: LEFT BREAST LUMP @ 11:00 Procedure: LEFT BREAST LUMPECTOMY SPECIMEN: A LEFT BREAST LESION GROSS DESCRIPTION: A. Received in formalin, labeled with the patients name, Case # [id number], and left breast lesion Description-18 g, measures 4 x 4 x 2.6 cm Orientation-no orientation Specimen coordinates-none provided Inked as follows: Entirely black Lesion-the specimen is serially sectioned to reveal yellow, glistening, homogeneous cut surfaces with no identified retail chain store area supervisor device, biopsy cavity or tumor grossly. TS -15 Cassette summary: A1 -[id number] specimen in sequential order Time removed from patient-820 on 06/16/2023 Time placed in formalin-1251 on 06/16/2023 Cold ischemic time-4 hours 31 minutes Total time in formalin (in processor)-1 hour Total time in formalin fixative-97 hours Cold ischemic time-not within the parameters of ASCO/CAP guidelines Total fixation time-not within the parameters of ASCO/CAP guidelines (at least 6 hours and not exceeding 72 hours) Fixative- 10% neutral buffered formalin Dictated by BALAJI STEVENSON MICROSCOPIC DESCRIPTION: The microscopic examination is performed, except in the case of Gross Only. Electronically Signed by Pathology Report verified by [facility] MAURICIO CHRISTENSEN Sign out Date: 06/21/2023 14:41 Performing Lab: [facility], [address] [place] [address] Pathology Dept Pathology Reports Accession: Collected Date/Time: Received Date/Time: Pathologist: [id number] 06/16/2023 08:11 EDT 06/19/2023 08:11 EDT MAURICIO CHRISTENSEN MD Disclaimer If ancillary studies were utilized, the following Laboratory Developed Test (LDT) disclaimer will apply: Under CLIA requirements, [facility] is qualified to perform high complexity testing. For all ancillary stains, positive and negative controls stain appropriately. Performance characteristics of immunohistochemical and chromogenic in-situ hybridization tests have been determined by [facility]. These tests are used for clinical purposes, They should not be regarded as investigational or for research. Normal [facility] ([place]) Absolute lymphocyte countOrd ered By: Angel Santosh on 03-27-2023 Lymphocytes Auto (Unsp spec) [#/Vol] 1.96 10*3/uL 0.83-4.51 [facility] Basophil percentageOrdered B y: Maevecaden Frost on 03-27-2023 Basophils/100 WBC (Bld) 0.4 % 0-1 [facility] Bilirubin [Mass/Vol] 0.50 mg/dL 0.20-1.00 [facility] Comment on above: For patients on eltr ombopag therapy, use of Dimension Rocky TBIL is not recommended. Chloride [Moles/Vol] 107 mmol/L 98-107 [facility] Eosinophils/100 WBC (Bld) 1.6 % 0-5 [facility] Glucose [Mass/Vol] 156 mg/dL 74-106 [facility] Comment on above: Fasting Glucose resu lt greater than or equal to 126 mg/dL suggests DIABETES MELLITUS per A.D.A. criteria. Neutrophils (Bld) [#/Vol] 3.1 10*3/uL 2.0-7.7 [facility] Neutrophils/100 WBC (Bld) 54.4 % 47-70 [facility] Potassium [Moles/Vol] 4.3 mmol/L 3.5-5.1 [facility] Protein [Mass/Vol] 7.2 g/dL 6.4-8.2 [facility] Sodium [Moles/Vol] 139 mmol/L 136-145 [facility] WBC (Bld) [#/Vol] 5.6 10*3/uL 4.4-11.0 [facility] Blood erythrocytes count (nu mber/volume)Ordered By: Angel Frost on 03-27-2023 RBC (Bld) [#/Vol] 5.02 10*6/uL 4.2-5.4 [facility] Blood hemoglobin measurement (mass/volume)Ordered By: Angel Frost on 03-27-2023 Hemoglobin (Bld) [Mass/Vol] 14.8 g/dL 12.0-15.0 [facility] Blood lymphocytes/100 leukoc ytesOrdered By: [facility] on 03-27-2023 Lymphocytes/100 WBC (Bld) 34.9 % 19-41 [facility] Blood monocytes/100 leukocyt esOrdered By: [facility] Santosh on 03-27-2023 Monocytes/100 WBC (Bld) 8.2 % 0-10 [facility] Blood platelet mean volumeOr dered By: Angel Frost on 03-27-2023 Platelet mean volume (Bld) [Entitic vol] 10.4 fL 6.2-12.0 [facility] Determination of erythrocyte mean corpuscular volume (MCV)Ordered By: Angel Frost on 03-27-2023 MCV (RBC) [Entitic vol] 92.0 fL 81-99 [facility] Hematocrit Auto (Bld) [Volum e fraction]Ordered By: [facility] on 03-27-2023 Hematocrit (Bld) [Volume fraction] 46.2 % 37-47 [facility] Laboratory - Chemistry and C hemistry - challengeOrdered By: [facility] Satnosh on 03-27-2023 ALP [Catalytic activity/Vol] 120 U/L 45-117 [facility] ALT [Catalytic activity/Vol] 24 U/L 13-56 [facility] CO2 [Moles/Vol] 30.0 mmol/L 21.0-32.0 [facility] Globulin (S) [Mass/Vol] 3.8 g/dL 2.2-4.2 [facility] Urea nitrogen/Creatinine [Mass ratio] 16.7 mg/mg 10-20 [facility] Laboratory - Hematology and Cell countsOrdered By: Angel Frost on 03-27-2023 Erythrocyte distribution width (RBC) [Entitic vol] 47.9 fL 35.1-43.9 [facility] Erythrocyte distribution width (RBC) [Ratio] 14.0 % 11.6-14.6 [facility] Immature granulocytes/100 WBC (Bld) 0.500 % 0.0-0.9 [facility] Comment on above: IG% - Immature Granu locytes (promyelocytes, myelocytes and metamyelocytes) > 1% indicates that a LEFT SHIFT is Present. MCH (RBC) [Entitic mass] 29.5 pg 27.0-32.0 [facility] Nucleated RBC/100 WBC (Bld) [Ratio] 0 % 0-5 [facility] MCHC Auto (RBC) [Mass/Vol]Or dered By: Angel Frost on 03-27-2023 MCHC (RBC) [Mass/Vol] 32.0 g/dL 32-36 [facility] No Panel InformationOrdered By: Angel Frost on 03-27-2023 Estimated GFR (MDRD) Amer 69 mL/min >60 [facility] Comment on above: GFR Calc Estimated GFR (MDRD) Non-Af Amer 57 mL/min >60 [facility] Comment on above: Non- GFR Calc Platelets bldOrdered By: Aaron Frost on 03-27-2023 Platelets (Bld) [#/Vol] 161 10*3/uL 150-450 [facility] Serum or plasma albumin moises urement (mass/volume)Ordered By: Angel Frost on 03-27-2023 Albumin [Mass/Vol] 3.4 g/dL 3.2-5.0 [facility] Serum or plasma albumin/glob ulin mass ratioOrdered By: Angel Frost on 03-27-2023 Albumin/Globulin [Mass ratio] 0.9 {ratio} 0.9-2.4 [facility] Serum or plasma calcium moises urement (mass/volume)Ordered By: Angel Frost on 03-27-2023 Calcium [Mass/Vol] 8.8 mg/dL 8.5-10.1 [facility] Serum or plasma creatinine m easurement (mass/volume)Ordered By: Angel Frost on 03-27-2023 Creatinine [Mass/Vol] 1.02 mg/dL 0.55-1.02 [facility] Comment on above: The validity of the calculated GFR & GFRAA in patients over 70 years has not been determined. Clinical correlation is essential. Serum or plasma urea nitroge n measurement (mass/volume)Ordered By: Angel Frost on 03-27-2023 Urea nitrogen [Mass/Vol] 17 mg/dL 7-18 [facility] Thin prep Papanicolaou smear with manual screeningOrdered By: [facility] on 03-27-2023 Thin prep Papanicolaou smear with manual screening 23 U/L 15- [facility] Thin prep Papanicolaou smear with manual screening 2 5-15 [facility] Supplemental Reporton 2022 Supplemental Report . Pathology Reports Accession: Collected Date/Time: Received Date/Time: Pathologist: [id number] 11/21/2022 12:22 EST 11/22/2022 04:42 EST MAURICIO CHRISTENSEN MD Supplemental Report SUPPLEMENTAL: [employer]. [address] [place] [address] Oncotype DX Breast Recurrence Score Report Recurrence score result: 7 Distance recurrence risk at 9 years: 3% Group average absolute chemotherapy benefit: <1% Quantitative Single-Gene Scores: ER: 11.7 ER Positive MT: >10.0 MT Positive HER2: 7.8 HER2 Negative Complete report scanned into chart. Electronically Signed by Pathology Report verified by [facility] MAURICIO CHRISTENSEN Sign out Date: 12/27/2022 12:13 Performing Lab: [facility], [address] [place] [address] Pathology Dept Final Surgical Pathology Report DIAGNOSIS: BREAST, RIGHT, MASTECTOMY: - INVASIVE DUCTAL CARCINOMA, GRADE 3 - DEEP MARGIN: NEGATIVE - 6 LYMPH NODES, NEGATIVE FOR MALIGNANCY (0/6) CAP CHECKLISTS: INVASIVE CARCINOMA OF THE BREAST: Resection SPECIMEN PROCEDURE: Total mastectomy SPECIMEN LATERALITY: Right TUMOR HISTOLOGIC TYPE: Invasive carcinoma of no special type (ductal) GLANDULAR (ACINAR) / TUBULAR DIFFERENTIATION: Score 3 NUCLEAR PLEOMORPHISM: Score 3 MITOTIC RATE: Score 2 OVERALL GRADE: Grade 3 (scores of 8 or 9) TUMOR SIZE: GREATEST DIMENSION OF LARGEST INVASIVE FOCUS (MILLIMETERS) - 20 mm DUCTAL CARCINOMA IN SITU (DCIS): PRESENT - Negative for extensive intraductal component (EIC) Tumor Extent TUMOR EXTENT: Not applicable LYMPHATIC AND / OR VASCULAR INVASION: Not identified Pathology Reports Accession: Collected Date/Time: Received Date/Time: Pathologist: [id number] 11/21/2022 12:22 EST 11/22/2022 04:42 MAURICIO GAN MD DIAGNOSIS: TREATMENT EFFECT IN THE BREAST: No known presurgical therapy TREATMENT EFFECT IN THE LYMPH NODES: Not applicable MARGINS MARGIN STATUS FOR INVASIVE CARCINOMA: All margins negative for invasive carcinoma DISTANCE FROM INVASIVE CARCINOMA TO CLOSEST MARGIN: 55 mm CLOSEST MARGIN(S) TO INVASIVE CARCINOMA: Posterior MARGIN STATUS FOR DCIS: All margins negative for DCIS DISTANCE FROM DCIS TO CLOSEST MARGIN: 55 mm CLOSEST MARGIN(S) TO DCIS: Posterior REGIONAL LYMPH NODES REGIONAL LYMPH NODE STATUS: All regional lymph nodes negative for tumor TOTAL NUMBER OF LYMPH NODES EXAMINED (SENTINEL AND NON-SENTINEL): 6 NUMBER OF SENTINEL NODES EXAMINED: 6 DISTANT METASTASIS DISTANT SITE(S) INVOLVED: Not applicable pTNM CLASSIFICATION (AJCC 8th Edition) Reporting of pT, pN, and (when applicable) pM categories is based on information available to the pathologist at the time the report is issued. As per the AJCC (Chapter 1, 8th Ed.) it is the managing physician's responsibility to establish the final pathologic stage based upon all pertinent information, including but potentially not limited to this pathology report. MODIFIED CLASSIFICATION: Not applicable PT CATEGORY: pT1c T SUFFIX: Not applicable PN CATEGORY: pN0 N SUFFIX: Not applicable PM CATEGORY: Not applicable - pM cannot be determined from the submitted specimen(s) COMMENT(S): Previous breast core biopsy [id number]: ER and MT positive, HER2 IHC equivocal, FISH negative. HAND PLEATER TUMOR BLOCK(S): A2-5 CLINICAL INFORMATION: INVASIVE DUCTAL CARCINOMA OF RIGHT BREAST SPECIMEN: A RIGHT BREAST MASTECTOMY GROSS DESCRIPTION: A. Received in formalin labeled with the patients name, case #[id number], and labeled right breast mastectomy is a right breast radical mastectomy Dimensions of overall specimen-1160 g, measures 35 x 19 x 5.5 cm. Skin ellipse measuring 28 x 8 cm with nipple measuring 1.1 cm. Orientation-stitch at level 3 Inked- Superior-Blue, Inferior- Green, and Posterior- Black Tumor/lesion/biopsy site-located in the lower outer quadrant is a guerrero firm well-circumscribed mass measuring 1.7 x 2.0 x 1.6 cm. The mass is located 1 cm lateral to the nipple, 5.5 cm to the closest black inked posterior margin and 0.1 cm to the anterior skin. The remaining breast tissue is yellow lobulated, glistening with no additional masses identified. The axillary tail is palpated and dissected to reveal 6 possible lymph nodes ranging in size from 0.5 to 1.8 cm. RS-13 Cassette summary: A1 -nipple A2 -A6-lower outer quadrant guerrero firm well-circumscribed mass A7 -black inked posterior margin closest to lower outer quadrant mass Pathology Reports Accession: Collected Date/Time: Received Date/Time: Pathologist: [id number] 11/21/2022 12:22 EST 11/22/2022 04:42 MAURICIO GAN MD GROSS DESCRIPTION: A8 -upper outer quadrant tissue A9 -lower inner quadrant tissue A10 -upper inner quadrant tissue A 11 -1 possible lymph node bisected A 12 -4 possible lymph nodes A 13 -1 possible lymph node bisected Time removed from patient-1218 Time placed in forma (more content not included)... [facility] ([place]) Final Surgical Pathology Rep [facility] 11-24-2022 Final Surgical Pathology Report . Pathology Reports Accession: Collected Date/Time: Received Date/Time: Pathologist: [id number] 11/21/2022 12:22 EST 11/22/2022 04:42 MAURICIO GAN MD Final Surgical Pathology Report DIAGNOSIS: BREAST, RIGHT, MASTECTOMY: - INVASIVE DUCTAL CARCINOMA, GRADE 3 - DEEP MARGIN: NEGATIVE - 6 LYMPH NODES, NEGATIVE FOR MALIGNANCY (0/6) CAP CHECKLISTS: INVASIVE CARCINOMA OF THE BREAST: Resection SPECIMEN PROCEDURE: Total mastectomy SPECIMEN LATERALITY: Right TUMOR HISTOLOGIC TYPE: Invasive carcinoma of no special type (ductal) GLANDULAR (ACINAR) / TUBULAR DIFFERENTIATION: Score 3 NUCLEAR PLEOMORPHISM: Score 3 MITOTIC RATE: Score 2 OVERALL GRADE: Grade 3 (scores of 8 or 9) TUMOR SIZE: GREATEST DIMENSION OF LARGEST INVASIVE FOCUS (MILLIMETERS) - 20 mm DUCTAL CARCINOMA IN SITU (DCIS): PRESENT - Negative for extensive intraductal component (EIC) Tumor Extent TUMOR EXTENT: Not applicable LYMPHATIC AND / OR VASCULAR INVASION: Not identified TREATMENT EFFECT IN THE BREAST: No known presurgical therapy TREATMENT EFFECT IN THE LYMPH NODES: Not applicable MARGINS MARGIN STATUS FOR INVASIVE CARCINOMA: All margins negative for invasive carcinoma DISTANCE FROM INVASIVE CARCINOMA TO CLOSEST MARGIN: 55 mm CLOSEST MARGIN(S) TO INVASIVE CARCINOMA: Posterior MARGIN STATUS FOR DCIS: All margins negative for DCIS DISTANCE FROM DCIS TO CLOSEST MARGIN: 55 mm CLOSEST MARGIN(S) TO DCIS: Posterior REGIONAL LYMPH NODES REGIONAL LYMPH NODE STATUS: All regional lymph nodes negative for tumor TOTAL NUMBER OF LYMPH NODES EXAMINED (SENTINEL AND NON-SENTINEL): 6 NUMBER OF SENTINEL NODES EXAMINED: 6 DISTANT METASTASIS DISTANT SITE(S) INVOLVED: Not applicable pTNM CLASSIFICATION (AJCC 8th Edition) Reporting of pT, pN, and (when applicable) pM categories is based on information available to the pathologist at the time the report is issued. As per the AJCC (Chapter 1, 8th Ed.) it is the managing physician's responsibility to establish the final pathologic stage based upon all pertinent information, including but potentially not limited to this pathology report. MODIFIED CLASSIFICATION: Not applicable PT CATEGORY: pT1c T SUFFIX: Not applicable PN CATEGORY: pN0 N SUFFIX: Not applicable PM CATEGORY: Not applicable - pM cannot be determined from the submitted specimen(s) COMMENT(S): Previous breast core biopsy [id number]: ER and MT positive, HER2 IHC equivocal, FISH negative. HAND PLEATER TUMOR BLOCK(S): A2-5 CLINICAL INFORMATION: INVASIVE DUCTAL CARCINOMA OF RIGHT BREAST Pathology Reports Accession: Collected Date/Time: Received Date/Time: Pathologist: [id number] 11/21/2022 12:22 EST 11/22/2022 04:42 MAURICIO GAN MD SPECIMEN: A RIGHT BREAST MASTECTOMY GROSS DESCRIPTION: A. Received in formalin labeled with the patients name, case #[id number], and labeled right breast mastectomy is a right breast radical mastectomy Dimensions of overall specimen-1160 g, measures 35 x 19 x 5.5 cm. Skin ellipse measuring 28 x 8 cm with nipple measuring 1.1 cm. Orientation-stitch at level 3 Inked- Superior-Blue, Inferior- Green, and Posterior- Black Tumor/lesion/biopsy site-located in the lower outer quadrant is a guerrero firm well-circumscribed mass measuring 1.7 x 2.0 x 1.6 cm. The mass is located 1 cm lateral to the nipple, 5.5 cm to the closest black inked posterior margin and 0.1 cm to the anterior skin. The remaining breast tissue is yellow lobulated, glistening with no additional masses identified. The axillary tail is palpated and dissected to reveal 6 possible lymph nodes ranging in size from 0.5 to 1.8 cm. RS-13 Cassette summary: A1 -nipple A2 -A6-lower outer quadrant guerrero firm well-circumscribed mass A7 -black inked posterior margin closest to lower outer quadrant mass A8 -upper outer quadrant tissue A9 -lower inner quadrant tissue A10 -upper inner quadrant tissue A 11 -1 possible lymph node bisected A 12 -4 possible lymph nodes A 13 -1 possible lymph node bisected Time removed from patient-1218 Time placed in formalin-1222 Cold ischemic time-4 minutes Total time in formalin (in processor)-6 hours Total time in formalin fixative-33 hours Cold ischemic time- within the parameters of ASCO/CAP guidelines Total fixation time- within the parameters of ASCO/CAP guidelines (at least 6 hours and not exceeding 72 hours) Dictated by BALAJI STEVENSON MICROSCOPIC DESCRIPTION: The microscopic examination is performed, except in the case of Gross Only. Electronically Signed by Pathology Report verified by [facility] MAURICIO CHRISTENSEN Sign out Date: 11/24/2022 09:19 Performing Lab: [facility], [address] [place] [address] Pathology Dept [facility] ([place]) Supplemental Reporton 2022 Supplemental Report . Pathology Reports Accession: Collected Date/Time: Received Date/Time: Pathologist: [id number] 10/05/2022 13:35 EST 10/06/2022 10:24 EST MD HIEU STANLEY Supplemental Report SUPPLEMENTAL: [facility] [address] [place] [id number] HER2 FISH Analysis Clinical summary and Indication: Invasive ductal carcinoma Body Site: Breast, Right seven o'clock Comment: FINAL HER2 Interpretation: In conjunction with the equivocal (2+) HER2 immunostain result provided, the final HER2 interpretation of this specimen is NEGATIVE (in accordance with 2018 ASCO/CAP guidelines). HER2 FISH Results: Equivocal Number of tumor cells counted: 20+20 Number of observers: 2 Average HER2 Copy number: 4.35 Average CEP17 copy number: 3.13 Ratio of average HER2/CEP17: 1.4 Sample adequate for analysis: Yes Complete report scanned into chart. Electronically Signed by Pathology Report verified by [facility] HIEU STANLEY MD Sign out Date: 10/31/2022 13:17 Performing Lab: [facility], [address] [place] [address] Pathology Dept Final Surgical Pathology Report DIAGNOSIS: BREAST, RIGHT, 7:00, CORE BIOPSY: - INVASIVE DUCTAL CARCINOMA - GRADE 3 - IMMUNOPEROXIDASE STAINS FOR MSA AND P63 DEMONSTRATE AN ABSENT MYOEPITHELIAL LAYER AROUND THE INVASIVE CARCINOMA. - ESTROGEN RECEPTOR: POSITIVE (98%, STRONG). - PROGESTERONE RECEPTOR: POSITIVE (95%, STRONG). - HER2: FOCAL EQUIVOCAL (2+). COMMENT: [facility] - [id number] CLINICAL INFORMATION: RIGHT SUBAREOLAR BREAST MASS SPECIMEN: A RIGHT BREAST BIOPSY @ 7 O'CLOCK POSITION GROSS DESCRIPTION: Received in formalin, labeled with the patients name, Case #[id number], and right breast 7:00 biopsy for yellow-white cores of soft tissue, 1.1 -1.5 cm in length Pathology Reports Accession: Collected Date/Time: Received Date/Time: Pathologist: [id number] 10/05/2022 13:35 EST 10/06/2022 10:24 EST MD HIEU STANLEY GROSS DESCRIPTION: TS-1 Time removed from patient: 1335 Time placed in formalin: 1335 Cold ischemic time: is within the parameters of ASCO/CAP guidelines Total fixation time: is within the parameters of ASCO/CAP guidelines (at least 6 hours and not exceeding 72 hours) Fixative: 10% neutral buffered formalin Dictated by BALAJI STEVENSON MICROSCOPIC DESCRIPTION: The microscopic examination is performed, except in the case of Gross Only. ADDITIONAL DIAGNOSTIC CODES: 3394F, 3395F x2 Electronically Signed by Pathology Report verified by [facility] HIEU STANLEY MD Sign out Date: 10/10/2022 11:24 Performing Lab: [facility], [address] [place] [id number] [facility] Pathology Dept [facility] ([place]) Final Surgical Pathology Rep frida 10-10-2022 Final Surgical Pathology Report . Pathology Reports Accession: Collected Date/Time: Received Date/Time: Pathologist: [id number] 10/05/2022 13:35 EST 10/06/2022 10:24 EST MD HIEU STANLEY Final Surgical Pathology Report DIAGNOSIS: BREAST, RIGHT, 7:00, CORE BIOPSY: - INVASIVE DUCTAL CARCINOMA - GRADE 3 - IMMUNOPEROXIDASE STAINS FOR MSA AND P63 DEMONSTRATE AN ABSENT MYOEPITHELIAL LAYER AROUND THE INVASIVE CARCINOMA. - ESTROGEN RECEPTOR: POSITIVE (98%, STRONG). - PROGESTERONE RECEPTOR: POSITIVE (95%, STRONG). - HER2: FOCAL EQUIVOCAL (2+). COMMENT: [facility] - [id number] CLINICAL INFORMATION: RIGHT SUBAREOLAR BREAST MASS SPECIMEN: A RIGHT BREAST BIOPSY @ 7 O'CLOCK POSITION GROSS DESCRIPTION: Received in formalin, labeled with the patients name, Case #[id number], and right breast 7:00 biopsy for yellow-white cores of soft tissue, 1.1 -1.5 cm in length TS-1 Time removed from patient: 1335 Time placed in formalin: 1335 Cold ischemic time: is within the parameters of ASCO/CAP guidelines Total fixation time: is within the parameters of ASCO/CAP guidelines (at least 6 hours and not exceeding 72 hours) Fixative: 10% neutral buffered formalin Dictated by BALAJI STEVENSON MICROSCOPIC DESCRIPTION: The microscopic examination is performed, except in the case of Gross Only. ADDITIONAL DIAGNOSTIC CODES: 3394F, 3395F x2 Electronically Signed by Pathology Report verified by [facility] HIEU STANLEY MD Sign out Date: 10/10/2022 11:24 Performing Lab: [facility], [address] [place] [address] Pathology Dept Normal [facility] ([place]) CBC (INCLUDES DIFF/PLT)on Basophils (Bld) [#/Vol] 0.02 10*3/uL Normal 0-200 [facility] Comment on above: Performed By: #### 6 399, 51520, 3610 #### [facility] [address], [address] [place] [id number] Legal Support Analyst: Vlad Dahl MD Basophils/100 WBC (Bld) 0.4 % Normal [facility] Comment on above: Performed By: #### 6 399, 99009, 0 #### [facility] [place] [address] Legal Support Analyst: Vlad Dahl MD Eosinophils (Bld) [#/Vol] 0.071 10*3/uL Normal 15-500 [facility] Comment on above: Performed By: #### 6 399, 16299, 0 #### [facility] [place] [address] Legal Support Analyst: Vlad Dahl MD Eosinophils/100 WBC (Bld) 1.4 % Normal [facility] Comment on above: Performed By: #### 6 399, 20227, 0 #### [facility] [place] [address] Legal Support Analyst: Vlad Dahl MD Erythrocyte distribution width (RBC) [Ratio] 13.8 % Normal 11.0-15.0 [facility] Comment on above: Performed By: #### 6 399, 02292, 0 #### [facility] [place] [address] Legal Support Analyst: Vlad Dahl MD Hematocrit (Bld) [Volume fraction] 43.4 % Normal 35.0-45.0 [facility] Comment on above: Performed By: #### 6 399, 49209, 0 #### [facility] [place] [address] Legal Support Analyst: Vlad Dahl MD Hemoglobin (Bld) [Mass/Vol] 14.3 g/dL Normal 11.7-15.5 [facility] Comment on above: Performed By: #### 6 399, 04804, 7600 #### [facility] [place] [address] Legal Support Analyst: Vlad Dahl MD Lymphocytes (Bld) [#/Vol] 1.851 10*3/uL Normal 850-3900 [facility] Comment on above: Performed By: #### 6 399, 46635, 7600 #### [facility] of [address], [address] [place] [address] Legal Support Analyst: Vlad Dahl MD Lymphocytes/100 WBC (Bld) 36.3 % Normal [facility] Comment on above: Performed By: #### 6 399, 47262, 7600 #### [facility] of [address], [address] [place] [address] Legal Support Analyst: Vlad Dahl MD MCH (RBC) [Entitic mass] 29.7 pg Normal 27.0-33.0 [facility] Comment on above: Performed By: #### 6 399, 20866, 0 #### [facility] [place] [address] Legal Support Analyst: Vlad Dahl MD MCHC (RBC) [Mass/Vol] 32.9 g/dL Normal 32.0-36.[address] [facility] Comment on above: Performed By: #### 6 399, 20747, 0 #### [facility] of [address], [address] [place] [address] Legal Support Analyst: Vlad Dahl MD MCV (RBC) [Entitic vol] 90.2 fL Normal 80.0-100.0 [facility] Comment on above: Performed By: #### 6 399, 31690, 0 #### [facility] [place] [address] Legal Support Analyst: Vlad Dahl MD Monocytes (Bld) [#/Vol] 0.459 10*3/uL Normal 200-950 [facility] Comment on above: Performed By: #### 6 399, 91517, 0 #### [facility] [place] [address] Legal Support Analyst: Vlad Dahl MD Monocytes/100 WBC (Bld) 9.0 % Normal [facility] Comment on above: Performed By: #### 6 399, 54257, 0 #### [facility] [place] [address] Legal Support Analyst: Vlad Dahl MD Neutrophils (Bld) [#/Vol] 2.698 10*3/uL Normal 7806-8453 [facility] Comment on above: Performed By: #### 6 399, 19901, 7600 #### [facility] of [address], [address] [place] [address] Legal Support Analyst: Vlad Dahl MD Neutrophils/100 WBC (Bld) 52.9 % Normal [facility] Comment on above: Performed By: #### 6 399, 72079, 7600 #### [facility] [place] [address] Legal Support Analyst: Vlad Dahl MD Platelet mean volume (Bld) [Entitic vol] 11.1 fL Normal 7.5-12.5 [facility] Comment on above: Performed By: #### 6 399, 89611, 0 #### [facility] [place] [address] Legal Support Analyst: Vlad Dahl MD Platelets (Bld) [#/Vol] 215 10*3/uL Normal 140-400 [facility] Comment on above: Performed By: #### 6 399, 41197, 0 #### [facility] [place] [address] Legal Support Analyst: Vlad Dahl MD RBC (Bld) [#/Vol] 4.81 10*6/uL Normal 3.80-5.10 [facility] Comment on above: Performed By: #### 6 399, 98474, 7600 #### [facility] [place] [address] Legal Support Analyst: Vlad Dahl MD WBC (Bld) [#/Vol] 5.1 10*3/uL Normal 3.8-10.8 [facility] Comment on above: Performed By: #### 6 399, 42455, 7600 #### [facility] [place] [address] Legal Support Analyst: Vlad Dahl MD [facility] 07-05-2022 Albumin [Mass/Vol] 4.0 g/dL Normal 3.6-5.1 [facility] Comment on above: Performed By: #### 6 399, 68299, 7600 #### [facility] [place] [address] Legal Support Analyst: Vlad Dahl MD Albumin/Globulin [Mass ratio] 1.6 {ratio} Normal 1.0-2.5 [facility] Comment on above: Performed By: #### 6 399, 77818, 7600 #### [facility] of [address], [address] [place] [address] Legal Support Analyst: Vlad Dahl MD ALP [Catalytic activity/Vol] 130 U/L Normal 37-153 [facility] Comment on above: Performed By: #### 6 399, 49821, 0 #### [facility] [place] [address] Legal Support Analyst: Vlad Dahl MD ALT [Catalytic activity/Vol] 17 U/L Normal 6-29 [facility] Comment on above: Performed By: #### 6 399, 64593, 0 #### [facility] [place] [address] Legal Support Analyst: Vlad Dahl MD AST [Catalytic activity/Vol] 18 U/L Normal 10-35 [facility] Comment on above: Performed By: #### 6 399, 71687, 0 #### [facility] [place] [address] Legal Support Analyst: Vlad Dahl MD Bilirubin [Mass/Vol] 0.5 mg/dL Normal 0.2-1.2 [facility] Comment on above: Performed By: #### 6 399, 78939, 7600 #### [facility] [place] [address] Legal Support Analyst: Vlad Dahl MD BUN/CREATININE RATIO NOT APPLICABLE Normal 6-22 [facility] Comment on above: Performed By: #### 6 399, 72703, 0 #### [facility] [address], [address] [place] [address] Legal Support Analyst: Vlad Dahl MD Calcium [Mass/Vol] 9.0 mg/dL Normal 8.6-10.4 [facility] Comment on above: Performed By: #### 6 399, 97816, 7600 #### [facility] [address], [address] [place] [address] Legal Support Analyst: Vlad Dahl MD Chloride [Moles/Vol] 106 mmol/L Normal 98-110 [facility] Comment on above: Performed By: #### 6 399, 58888, 7600 #### [facility] of [address], [address] [place] [address] Legal Support Analyst: Vlad Dahl MD CO2 [Moles/Vol] 25 mmol/L Normal 20-32 [facility] Comment on above: Performed By: #### 6 399, 91065, 0 #### [facility] [address], [address] [place] [address] Legal Support Analyst: Vlad Dahl MD Creatinine [Mass/Vol] 0.81 mg/dL Normal 0.60-1.[address] [facility] [address] [facility] Comment on above: Performed By: #### 6 399, 73864, 0 #### [facility] [place] [address] Legal Support Analyst: Vlad Dahl MD GFR/1.73 sq M.predicted among non-blacks MDRD (S/P/Bld) [Vol rate/Area] 78 mL/min/{1.73_m2} Normal > OR = 60 [facility] Comment on above: Result Comment: The eGFR is based on the CKD-EPI 202 equation. To calculate the new eGFR from a previous Creatinine or Cystatin C result, go to https://www.kidney.org/professionals/ kdoqi/gfr%5Fcalculator Performed By: #### 6 399, 31437, 7600 #### [facility] [place] [address] Legal Support Analyst: Vlad Dahl MD Globulin (S) [Mass/Vol] 2.5 g/dL Normal 1.9-3.7 [facility] Comment on above: Performed By: #### 6 399, 08831, 7600 #### [facility] of [address], [address] [place] [address] Legal Support Analyst: Vlad Dahl MD Glucose [Mass/Vol] 102 mg/dL High 65-99 [facility] Comment on above: Result Comment: Fasting reference interval For someone without known diabetes, a glucose value between 100 and 125 mg/dL is consistent with prediabetes and should be confirmed with a follow-up test. Performed By: #### 6 399, 97096, 7600 #### [facility] [place] [address] Legal Support Analyst: Vlad Dahl MD Potassium [Moles/Vol] 4.4 mmol/L Normal 3.5-5.[address] [facility] Comment on above: Performed By: #### 6 399, 66354, 0 #### [facility] [place] [address] Legal Support Analyst: Vlad Dahl MD Protein [Mass/Vol] 6.5 g/dL Normal 6.1-8.1 [facility] Comment on above: Performed By: #### 6 399, 68972, 7600 #### [facility] [place] [address] Legal Support Analyst: Vlad Dahl MD Sodium [Moles/Vol] 141 mmol/L Normal 135-146 [facility] Comment on above: Performed By: #### 6 399, 56015, 7600 #### [facility] [place] [address] Legal Support Analyst: Vlad Dahl MD Urea nitrogen [Mass/Vol] 20 mg/dL Normal 7-25 [facility] Comment on above: Performed By: #### 6 399, 11823, 7600 #### [facility] [place] [address] Legal Support Analyst: Vlad Dahl MD LIPID PANEL, [facility] 10-1 Cholesterol [Mass/Vol] 187 mg/dL Normal <200 [facility] Comment on above: Performed By: #### 6 399, 15433, 7600 #### [facility] [address], [address] [place] [address] Legal Support Analyst: Vlad Dahl MD Cholesterol in HDL [Mass/Vol] 64 mg/dL Normal > OR = 50 [facility] Comment on above: Performed By: #### 6 399, 59764, 7600 #### [facility] [address], [address] [place] [address] Legal Support Analyst: Vlad Dahl MD Cholesterol in LDL [Mass/Vol] 108 mg/dL High [facility] Comment on above: Result Comment: Refe rence range: <100 Desirable range <100 mg/dL for primary prevention; <70 mg/dL for patients with CHD or diabetic patients with > or = 2 CHD risk factors. LDL-C is now calculated using the Cameron calculation, which is a validated novel method providing better accuracy than the Friedewald equation in the estimation of LDL-C. Jose SS et al. MOSHE. 2013;310(19): 1593-9886 (http://education.Yummy Food.Coolture/faq/QWK937) Performed By: #### 6 399, 18915, 7600 #### [facility] [place] [address] Legal Support Analyst: Vlad Dahl MD Cholesterol.total/Opal sterol in HDL [Mass ratio] 2.9 {ratio} Normal <5.0 [facility] Comment on above: Performed By: #### 6 399, 43231, 7600 #### [facility] [place] [address] Legal Support Analyst: Vlad Dahl MD NON HDL CHOLESTEROL 123 mg/dL (calc) Normal <130 [facility] Comment on above: Result Comment: For patients with diabetes plus 1 major ASCVD risk factor, treating to a non-HDL-C goal of <100 mg/dL (LDL-C of <70 mg/dL) is considered a therapeutic option. Performed By: #### 6 399, 88674, 7600 #### [facility] [address], [address] [place] [address] Legal Support Analyst: Vlad Dahl MD Triglyceride [Mass/Vol] 67 mg/dL Normal <150 [facility] Comment on above: Performed By: #### 6 399, 85249, 7600 #### [facility] [address], [address] [place] [address] Legal Support Analyst: Vlad Dahl MD TSH W/REFLEX TO FT4on 2021 TSH W/REFLEX TO FT4 1.92 mIU/L Normal 0.40-4.50 [facility] Comment on above: Performed By: #### 6 399, 49857, 7600 #### [facility] [address], [address] [place] [address] Legal Support Analyst: Vlad Dahl MD Laboratory - Chemistry and C hemistry - challengeon 07-04-2022 Albumin [Mass/Vol] 4.0 g/dL Normal 3.6 - 5.1 g/dL [facility], [facility].; [employer], [facility]. Albumin/Globulin [Mass ratio] 1.6 {ratio} Normal 1.0 - 2.5 [facility], [facility].; [employer] [facility] ALP [Catalytic activity/Vol] 130 U/L Normal 37 - 153 U/L [facility], [facility].; [employer] [facility] ALT [Catalytic activity/Vol] 17 U/L Normal 6 - 29 U/L [facility], [facility].; [employer] [facility] AST [Catalytic activity/Vol] 18 U/L Normal 10 - 35 U/L [employer] [facility], [facility].; [employer], [employer] Bilirubin [Mass/Vol] 0.5 mg/dL Normal 0.2 - 1 .2 mg/dL [employer] [facility], [facility].; [employer], [employer] Calcium [Mass/Vol] 9.0 mg/dL Normal 8.6 - 10. 4 mg/dL [employer] [facility], [facility].; [employer], [employer] Chloride [Moles/Vol] 106 mmol/L Normal 98 - 11 0 mmol/L [facility], [facility].; [employer], [facility]. Cholesterol [Mass/Vol] 187 mg/dL Normal [facility].; [facility], [facility] Cholesterol in HDL [Mass/Vol] 64 mg/dL Normal [facility], [facility].; [facility], [facility] Cholesterol in LDL [Mass/Vol] 108 mg/dL Abnormal [facility].; [employer], [facility]. CO2 [Moles/Vol] 25 mmol/L Normal 20 - 32 mmol/L [facility].; [employer], [facility]. Creatinine [Mass/Vol] 0.81 mg/dL Normal 0.60 - 1.00 mg/dL [facility].; [employer] [facility], [facility]. GFR/1.73 sq M.predicted among non-blacks MDRD (S/P/Bld) [Vol rate/Area] 78 mL/min/{1.73_m2} Normal [facility].; [employer] Glucose [Mass/Vol] 102 mg/dL Abnormal 65 - 99 mg/dL [facility].; [employer], [employer] Potassium [Moles/Vol] 4.4 mmol/L Normal 3.5 - 5.3 mmol/L [facility].; [employer] Protein [Mass/Vol] 6.5 g/dL Normal 6.1 - 8.1 g/dL [facility], [facility].; [employer] Sodium [Moles/Vol] 141 mmol/L Normal 135 - 146 mmol/L [facility].; [employer] Triglyceride [Mass/Vol] 67 mg/dL Normal [facility].; [employer], [employer] Urea nitrogen [Mass/Vol] 20 mg/dL Normal 7 - 25 mg/dL [employer] [facility].; [employer], [employer] Laboratory - Hematology and Cell countson 07-04-2022 Basophils (Bld) [#/Vol] 0.02 10*3/uL Normal 0 - 200 {cells/uL} [facility].; [facility] Basophils/100 WBC (Bld) 0.4 % Normal [facility].; [facility], [facility]. Eosinophils (Bld) [#/Vol] 0.071 10*3/uL Normal 15 - 500 {cells/uL} [facility], [facility].; [facility], [facility]. Eosinophils/100 WBC (Bld) 1.4 % Normal [facility].; [facility], [facility] Erythrocyte distribution width (RBC) [Ratio] 13.8 % Normal 11.0 - 15.0 % [facility].; [facility], [facility] Hematocrit (Bld) [Volume fraction] 43.4 % Normal 35.0 - 45.0 % [facility].; [facility], [facility]. Hemoglobin (Bld) [Mass/Vol] 14.3 g/dL Normal 11.7 - 15.5 g/dL [facility], [facility].; [facility], [facility] Lymphocytes (Bld) [#/Vol] 1.851 10*3/uL Normal 850 - 3900 {cells/uL} [facility].; [employer] [facility], [facility]. Lymphocytes/100 WBC (Bld) 36.3 % Normal [facility].; [facility], [facility]. MCH (RBC) [Entitic mass] 29.7 pg Normal 27.0 - 33.0 pg [facility].; [employer] [facility], [facility]. MCHC (RBC) [Mass/Vol] 32.9 g/dL Normal 32.0 - 36.0 g/dL [facility].; [employer] [facility], [facility]. MCV (RBC) [Entitic vol] 90.2 fL Normal 80.0 - 100.0 fL [facility].; [employer] [facility], [facility]. Monocytes (Bld) [#/Vol] 0.459 10*3/uL Normal 200 - 950 {cells/uL} [facility], [facility].; [employer] [facility], [facility]. Monocytes/100 WBC (Bld) 9.0 % Normal [facility], [facility].; [employer] [facility], [facility]. Neutrophils (Bld) [#/Vol] 2.698 10*3/uL Normal 1500 - 7800 {cells/uL} [facility].; [employer]. Neutrophils/100 WBC (Bld) 52.9 % Normal [facility].; [employer], [employer]. Platelet mean volume (Bld) [Entitic vol] 11.1 fL Normal 7.5 - 12.5 fL [employer] [facility].; [employer], [employer]. Platelets (Bld) [#/Vol] 215 10*3/uL Normal 140 - 400 [facility].; [employer], [employer] RBC (Bld) [#/Vol] 4.81 10*6/uL Normal 3.80 - 5.1 0 {Million/uL} [facility].; [employer], [employer] WBC (Bld) [#/Vol] 5.1 10*3/uL Normal 3.8 - 10.8 [employer] [facility].; [employer]. No Panel Informationon 07-04 BUN/CREATININE RATIO NOT APPLICABLE Normal - [facility].; [employer]gr[employer]. CHOL/HDLC RATIO 2.9 Normal [facility].; [place] [employer]. GLOBULIN 2.5 Normal 1.9 - 3.7 [place] [employer].; [employer], [employer]. NON HDL CHOLESTEROL 123 Normal [facility] [employer] [facility].; [employer], [employer]. TSH W/REFLEX TO FT4 1.92 {mIU/L} Normal 0.40 - 4 .50 {mIU/L} [facility].; [employer], Inc[employer] 187 mg/dL Normal [place] [employer].; [employer], [employer]. 64 mg/dL Normal [place] [employer].; [employer], Inc. 67 mg/dL Normal [facility] [employer].; [employer], TradeCloud.nl. 108 Abnormal [place] [employer].; [employer], Inc. 2.9 Normal [place] [employer], [employer].; [employer], Inc. 123 Normal [employer]al [employer], [employer].; Oneal[employer], Inc. 102 mg/dL Abnormal 65 - 99 mg/dL [facility] [employer] [facility].; [facility], Inc[employer] 20 mg/dL Normal 7 - 25 mg/dL [facility], Inc.; [facility], Inc. 0.81 mg/dL Normal 0.60 - 1.00 mg/dL [facility], Inc.; [facility], [facility] 78 Normal [facility], Inc.; [facility], Inc[employer] NOT APPLICABLE Normal 6 - 22 [facility], [facility].; [facility], Inc. 141 mmol/L Normal 135 - 146 mmol/L [facility], Inc.; [facility], Inc[employer] 4.4 mmol/L Normal 3.5 - 5.3 mmol/L [facility], [facility].; [facility], [employer] 106 mmol/L Normal 98 - 110 mmol/L [facility], [facility].; [facility], Inc[employer] 25 mmol/L Normal 20 - 32 mmol/L [facility], [facility].; [facility], Inc[employer] 9.0 mg/dL Normal 8.6 - 10.4 mg/dL [facility], [facility].; [facility], Inc[employer] 6.5 g/dL Normal 6.1 - 8.1 g/dL [facility], [facility].; [facility], Inc[employer] 4.0 g/dL Normal 3.6 - 5.1 g/dL [facility], [facility].; [place] [employer] [facility], Inc. 2.5 Normal 1.9 - 3.7 [facility], [facility].; [place] [employer] [facility], Inc. 1.6 Normal 1.0 - 2.5 [facility], Inc.; [place] [employer] [facility], Inc. 0.5 mg/dL Normal 0.2 - 1.2 mg/dL [facility], [facility].; [place] [employer] [facility], Inc. 130 U/L Normal 37 - 153 U/L [facility], [facility].; [place] [employer] [facility], Inc. 18 U/L Normal 10 - 35 U/L [facility], Inc.; [place] [employer], [employer]. 17 U/L Normal 6 - 29 U/L [facility], Inc.; [place] [employer], [employer]. 5.1 Normal 3.8 - 10.8 [facility], Inc.; [place] [employer] [facility], Inc. 4.81 {Million/uL} Normal 3.80 - 5.1 0 {Million/uL} [employer], Inc.; [employer], Inc. 14.3 g/dL Normal 11.7 - 15.5 g/dL [employer], Inc.; [employer], Inc. 43.4 % Normal 35.0 - 45.0 % [employer], Inc.; [employer], [employer] 90.2 fL Normal 80.0 - 100.0 fL [employer], Inc.; [employer], [employer] 29.7 pg Normal 27.0 - 33.0 pg [employer], Inc.; [employer], [employer]. 32.9 g/dL Normal 32.0 - 36.0 g/dL [employer], Inc.; [employer], [employer]. 13.8 % Normal 11.0 - 15.0 % [employer], Inc.; [employer], [employer] 215 Normal 140 - 400 [employer], Inc.; [employer], [employer]. 11.1 fL Normal 7.5 - 12.5 fL [employer], Inc.; [employer], [employer]. 2698 {cells/uL} Normal 1500 - 7800 {cells/uL} [employer], [employer].; [employer], [employer] 1851 {cells/uL} Normal 850 - 3900 {cells/uL} [employer], [employer].; [employer], [employer]. 459 {cells/uL} Normal 200 - 950 {cells/uL} [employer], [employer].; [employer], [employer] 71 {cells/uL} Normal 15 - 500 {cells/uL} [employer], [employer].; [employer], [employer] 20 {cells/uL} Normal 0 - 200 {cells/uL} [employer], [employer].; [employer], [employer]. 52.9 % Normal [employer], Inc.; [employer], [employer]. 36.3 % Normal [employer], Inc.; [employer], [employer]. 9.0 % Normal [employer], Inc.; [employer], [employer]. 1.4 % Normal [employer], Inc.; [employer], [employer]. 0.4 % Normal [facility].; [facility]. 1.92 {mIU/L} Normal 0.40 - 4.50 {mIU/L} [employer].; [employer]. CULTURE, URINE, ROUTINEon CULTURE, URINE, ROUTINE SEE NOTE Abnormal Q u[facility] Comment on above: Result Comment: CULTURE, URINE, ROUTINE Micro Number: [id number] Test Status: Final Specimen Source: Urine Specimen Quality: Adequate Result: Greater than 100,000 CFU/mL of Enterococcus faecalis COMMENT: Additional non-predominating organism(s) isolated. These organisms, commonly found on external and internal genitalia, are considered colonizers. No further testing performed. E.faecalis INT FRANCK AMPICILLIN S <=2 CIPROFLOXACIN S 1 LEVOFLOXACIN S 1 LINEZOLID S 2 NITROFURANTOIN S <=16 TETRACYCLINE S <=1 VANCOMYCIN S 1 S=Susceptible I=Intermediate R=Resistant * = Not Tested NR = Not Reported NN = See Therapy Comments Performed By: #### 3 [id number] #### [facility] [address], [address] [place] [address] Legal Support Analyst: Vlad Dahl MD Laboratory - Chemistry and C hemistry - challengeon 04-19-2022 Bilirubin Ql (U) Negative Normal [facility].; [employer]. Ketones Ql (U) Negative Normal [facility] [employer].; [employer]. pH (U) 6.5 [pH] Normal [facility].; [facility]. Specific gravity (U) [Rel density] 1.025 Normal [employer] [facility].; [facility]. Urobilinogen Qn (U) 0.2 mg/dL Normal [employer].; [employer]. Laboratory - Hematology and Cell countson 04-19-2022 Hemoglobin Ql (U) small Abnormal [facility] [facility].; [facility]. Laboratory - Specimen inform ationon 04-19-2022 Appearance (U) cloudy Abnormal [employer].; [employer]. Color (U) yellow Normal [employer]; [employer]. Laboratory - Urinalysison Glucose Test strip (U) [Mass/Vol] Negative Normal [employer].; [employer]. Leukocyte esterase Test strip Ql (U) small Abnormal [employer].; [employer]. Nitrite Ql (U) Negative Normal [facility] [employer]; [employer]. Protein Ql (U) 100 mg/dL Abnormal [facility] [employer].; [employer]. No Panel Informationon 04-19 CULTURE, URINE, ROUTINE SEE NOTE Abnormal [email or web address]; [employer]. SEE NOTE Abnormal [facility] [facility].; [employer]. CULTURE, URINE, ROUTINEon CULTURE, URINE, ROUTINE SEE NOTE Abnormal Q uest Diagnostics Comment on above: Result Comment: CULTURE, URINE, ROUTINE Micro Number: [id number] Test Status: Final Specimen Source: Urine Specimen Quality: Adequate Result: Greater than 100,000 CFU/mL of Escherichia coli E.coli INT FRANCK AMOX/CLAVULANATE S 8 AMPICILLIN S 4 AMP/SULBACTAM S 4 CEFAZOLIN NR <=4 2 CEFEPIME S <=1 CEFTAZIDIME S <=1 CEFTRIAXONE S <=1 CIPROFLOXACIN S <=0.25 GENTAMICIN S <=1 IMIPENEM S <=0.25 LEVOFLOXACIN S <=0.12 NITROFURANTOIN S <=16 PIP/TAZOBACTAM S <=4 TOBRAMYCIN S <=1 TRIMETHOPRIM/SULFA S <=20 S=Susceptible I=Intermediate R=Resistant * = Not Tested NR = Not Reported NN = See Therapy Comments THERAPY COMMENTS Note 1: For infections other than uncomplicated UTI caused by E. coli, K. pneumoniae or P. mirabilis: Cefazolin is resistant if FRANCK > or = 8 mcg/mL. (Distinguishing susceptible versus intermediate for isolates with FRANCK < or = 4 mcg/mL requires additional testing.) Note 2: For uncomplicated UTI caused by E. coli, K. pneumoniae or P. mirabilis: Cefazolin is susceptible if FRANCK <32 mcg/mL and predicts susceptible to the oral agents cefaclor, cefdinir, cefpodoxime, cefprozil, cefuroxime, cephalexin and loracarbef. Performed By: #### 3 [id number] #### [facility] [address], [address] [place] [address] Legal Support Analyst: Vlad Dahl MD Laboratory - Chemistry and C hemistry - challengeon 03-24-2022 Bilirubin Ql (U) Negative Normal [facility]ight[facility].; [employer]. Ketones Ql (U) Negative Normal [facility] [employer].; [employer]. pH (U) 6.0 [pH] Normal [employer].; [employer]. Specific gravity (U) [Rel density] >=1.030 Normal [employer].; [employer]. Urobilinogen Qn (U) 0.2 mg/dL Normal [facility] [employer].; [employer]. Laboratory - Hematology and Cell countson 03-24-2022 Hemoglobin Ql (U) small Abnormal [employer].; [employer]. Laboratory - Specimen inform ationon 03-24-2022 Appearance (U) clear Normal [facility] [employer].; [employer]. Color (U) dark Yellow Normal [facility].; [facility]. Laboratory - Urinalysison Glucose Test strip (U) [Mass/Vol] Negative Normal [employer].; [employer]. Leukocyte esterase Test strip Ql (U) large Abnormal [employer].; [facility] [facility]. Nitrite Ql (U) Positive Abnormal [facility] [employer].; [employer]. Protein Ql (U) 300 mg/dL Abnormal [facility].; [employer], [employer]. No Panel Informationon 03-24 CULTURE, URINE, ROUTINE SEE NOTE Abnormal [facility].; [employer], [employer]. SEE NOTE Abnormal [facility].; [place] [employer] [facility]. Laboratory - Chemistry and C hemistry - challengeon 03-10-2022 Bilirubin Ql (U) Negative Normal [facility].; [place] [employer] [facility]. Ketones Ql (U) Negative Normal [facility].; [place] [employer]. pH (U) 5.5 [pH] Normal [facility].; [place] [employer] [facility] HospitalTem[facility] Power. Specific gravity (U) [Rel density] 1.020 Normal [facility].; [employer]. Urobilinogen Qn (U) 0.2 mg/dL Normal [facility] ER[facility].; [place] [employer] [facility]. Laboratory - Hematology and Cell countson 03-10-2022 Hemoglobin Ql (U) Negative Normal [facility].; [place] [employer]. Laboratory - Specimen inform ationon 03-10-2022 Appearance (U) clear Normal [facility].; [place] [employer]. Color (U) yellow Normal [facility].; [employer]. Laboratory - Urinalysison Glucose Test strip (U) [Mass/Vol] Negative Normal [facility].; [place] [employer]. Leukocyte esterase Test strip Ql (U) Negative Normal [facility].; [employer], [employer]. Nitrite Ql (U) Negative Normal [facility].; [employer]. Protein Ql (U) Negative Normal [facility].; [employer]. Laboratory - Chemistry and C hemistry - challengeon 07-07-2021 Bilirubin Ql (U) Negative Normal [facility].; [employer]. Ketones Ql (U) Negative Normal [facility].; [place] [employer], [employer]. pH (U) 5.5 [pH] Normal [facility] [employer] [facility].; [employer], [employer]. Specific gravity (U) [Rel density] 1.025 Normal [place] [employer].; [employer]. Urobilinogen Qn (U) 0.2 mg/dL Normal [facility] [employer] [facility].; [employer]. Laboratory - Hematology and Cell countson 07-07-2021 Hemoglobin Ql (U) small Abnormal [employer].; [employer]. Laboratory - Specimen inform ationon 07-07-2021 Appearance (U) clear Normal [facility] [employer].; [employer]. Color (U) yellow Normal [employer].; [employer]. Laboratory - Urinalysison Glucose Test strip (U) [Mass/Vol] Negative Normal [place] [employer].; [employer]. Leukocyte esterase Test strip Ql (U) large Abnormal [employer].; [employer]. Nitrite Ql (U) Positive Abnormal [facility] [employer].; [employer]. Protein Ql (U) Negative Normal [facility] [employer].; [employer]. No Panel Informationon 07-07 CULTURE, URINE, ROUTINE SEE NOTE Abnormal [facility] [employer].; [employer]. SEE NOTE Abnormal [employer].; [employer]. Laboratory - Chemistry and C hemistry - challengeon 02-24-2021 Bilirubin Ql (U) Negative Normal [facility]ightET[facility].; [employer]. Ketones Ql (U) Negative Normal [facility] [employer].; [employer]. pH (U) 5.5 [pH] Normal [employer].; [employer]. Specific gravity (U) [Rel density] 1.015 Normal [employer].; [employer]. Urobilinogen Qn (U) 0.2 mg/dL Normal [facility] [employer].; [employer]. Laboratory - Hematology and Cell countson 02-24-2021 Hemoglobin Ql (U) trace, hemolyzed Abnormal [facility] [employer] [facility] HospitalTem[facility].; [employer]. Laboratory - Specimen inform ationon 02-24-2021 Appearance (U) clear Normal [facility] [employer].; [employer]. Color (U) yellow Normal [facility].; [employer], [employer]. Laboratory - Urinalysison Glucose Test strip (U) [Mass/Vol] Negative Normal [facility].; [employer], Inc. Leukocyte esterase Test strip Ql (U) large Abnormal [facility].; [employer], Inc. Nitrite Ql (U) Positive Abnormal [employer].; [employer], [employer]. Protein Ql (U) trace Normal [employer].; [employer], Inc. No Panel Informationon 02-24 CULTURE, URINE, ROUTINE SEE NOTE Abnormal [facility] [employer].; [employer]. SEE NOTE Abnormal [facility].; [employer]. Coronavirus 2019on 0 COVID 19 Result 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 Normal Negative for COVID19 (SARS CoV2) by PCR. [facility] Comment on above: Result Comment: Nega tive for This test was developed and its performance characteristics determined by [facility] [place]. This test has been authorized by FDA under an Emergency Use Authorization (EUA). This test has been validated in accordance with the FDA's Guidance Document Policy for Diagnostics Testing in Laboratories Certified to Perform High Complexity Testing under CLIA prior to Emergency use Authorization for Coronavirus Disease 2019 during the Public Health Emergency issued on November 16, 2019. COVID19 (SARS This test was developed and its performance characteristics determined by [facility] [place]. This test has been authorized by FDA under an Emergency Use Authorization (EUA). This test has been validated in accordance with the FDA's Guidance Document Policy for Diagnostics Testing in Laboratories Certified to Perform High Complexity Testing under CLIA prior to Emergency use Authorization for Coronavirus Disease 2019 during the Public Health Emergency issued on November 16, 2019. CoV2) by PCR. This test was developed and its performance characteristics determined by [facility] [place]. This test has been authorized by FDA under an Emergency Use Authorization (EUA). This test has been validated in accordance with the FDA's Guidance Document Policy for Diagnostics Testing in Laboratories Certified to Perform High Complexity Testing under CLIA prior to Emergency use Authorization for Coronavirus Disease 2019 during the Public Health Emergency issued on November 16, 2019. Coronavirus 2019on 0 COVID 19 Source 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 Normal [facility] Comment on above: Result Comment: Naso pharyngeal Corrected on 08/12 AT 1415: Previously reported as U Swab Corrected on 08/12 AT 1415: Previously reported as U Laboratory - Chemistry and C hemistry - challengeon 05-15-2020 Free T3 [Mass/Vol] 2.9 pg/mL Normal 2.3 - 4.2 pg/mL [place] [employer], [employer].; [employer], [employer]. Free T4 [Mass/Vol] 1.1 ng/dL Normal 0.8 - 1.8 ng/dL [place] [employer], [employer].; [employer], Inc[employer] TSH Qn 2.25 m[IU]/L Normal 0.40 - 4.50 {mIU/L} [employer], [employer].; [employer], [employer]. No Panel Informationon 05-15 1.1 ng/dL Normal 0.8 - 1.8 ng/dL [employer], [employer].; [employer], [employer]. 2.25 {mIU/L} Normal 0.40 - 4.50 {mIU/L} [employer], Inc.; [employer], [employer]. 2.9 pg/mL Normal 2.3 - 4.2 pg/mL [employer], [employer].; [employer], Inc. Laboratory - Chemistry and C hemistry - challengeon 05-05-2020 Calcium [Mass/Vol] 8.8 mg/dL Normal 8.6 - 10. 4 mg/dL [employer], [employer].; [employer], Inc. Chloride [Moles/Vol] 107 mmol/L Normal 98 - 11 0 mmol/L [facility] [employer], [employer].; [employer], Inc. Cholesterol [Mass/Vol] 245 mg/dL Abnormal [employer], Inc.; [employer], Inc. Cholesterol in HDL [Mass/Vol] 73 mg/dL Normal [employer], Inc.; [employer], Inc. Cholesterol in LDL [Mass/Vol] 153 mg/dL Abnormal [facility].; [place] [employer] [facility]. CO2 [Moles/Vol] 25 mmol/L Normal 20 - 32 mmol/L [facility].; [place] [employer], [facility]. Creatinine [Mass/Vol] 0.96 mg/dL Normal 0.50 - 0.99 mg/dL [facility], [facility].; [place] [employer], [employer]. GFR/1.73 sq M.predicted among blacks MDRD (S/P/Bld) [Vol rate/Area] 70 mL/min/{1.73_m2} Normal [facility], [facility].; [place] [employer] [facility], [facility]. Glucose [Mass/Vol] 96 mg/dL Normal 65 - 99 mg/dL [facility].; [place] [employer], [employer]. Potassium [Moles/Vol] 4.2 mmol/L Normal 3.5 - 5.3 mmol/L [facility], [facility].; [place] [employer], [employer]. Sodium [Moles/Vol] 141 mmol/L Normal 135 - 146 mmol/L [facility].; [place] [employer], [employer]. Triglyceride [Mass/Vol] 84 mg/dL Normal [facility].; [place] [employer], [employer]. Urea nitrogen [Mass/Vol] 17 mg/dL Normal 7 - 25 mg/dL [facility].; [place] [employer], [employer]. Laboratory - Hematology and Cell countson 05-05-2020 Basophils (Bld) [#/Vol] 0.032 10*3/uL Normal 0 - 200 {cells/uL} [facility].; [place] [employer]. Basophils/100 WBC (Bld) 0.6 % Normal [facility].; [place] [employer] [facility]. Eosinophils (Bld) [#/Vol] 0.103 10*3/uL Normal 15 - 500 {cells/uL} [facility].; [place] [employer], [employer]. Eosinophils/100 WBC (Bld) 1.9 % Normal [facility].; [place] [employer], [employer]. Erythrocyte distribution width (RBC) [Ratio] 14.2 % Normal 11.0 - 15.0 % [facility].; [place] [employer], [employer]. Hematocrit (Bld) [Volume fraction] 43.5 % Normal 35.0 - 45.0 % [facility].; [facility], [facility] Hemoglobin (Bld) [Mass/Vol] 14.4 g/dL Normal 11.7 - 15.5 g/dL [facility].; [facility], [facility] Lymphocytes (Bld) [#/Vol] 2.09 10*3/uL Normal 850 - 3900 {cells/uL} [facility], [facility].; [facility], [facility] Lymphocytes/100 WBC (Bld) 38.7 % Normal [facility].; [facility], [facility]. MCH (RBC) [Entitic mass] 29.7 pg Normal 27.0 - 33.0 pg [facility].; [facility], [facility]. MCHC (RBC) [Mass/Vol] 33.1 g/dL Normal 32.0 - 36.0 g/dL [facility], [facility].; [facility], [facility]. MCV (RBC) [Entitic vol] 89.7 fL Normal 80.0 - 100.0 fL [facility].; [facility], [facility] Monocytes (Bld) [#/Vol] 0.47 10*3/uL Normal 200 - 950 {cells/uL} [facility], [facility].; [facility], [facility]. Monocytes/100 WBC (Bld) 8.7 % Normal [facility].; [facility], [facility]. Neutrophils (Bld) [#/Vol] 2.705 10*3/uL Normal 1500 - 7800 {cells/uL} [facility], [facility].; [place] [employer], [facility]. Neutrophils/100 WBC (Bld) 50.1 % Normal [facility].; [facility], [facility]. Platelet mean volume (Bld) [Entitic vol] 11.3 fL Normal 7.5 - 12.5 fL [facility], [facility].; [facility], [facility]. Platelets (Bld) [#/Vol] 127 10*3/uL Abnormal 140 - 400 [facility].; [facility], [facility]. RBC (Bld) [#/Vol] 4.85 10*6/uL Normal 3.80 - 5.1 0 {Million/uL} [facility], Inc.; [employer], [employer]. WBC (Bld) [#/Vol] 5.4 10*3/uL Normal 3.8 - 10.8 [facility], Inc.; [employer], [employer]. No Panel Informationon 05-05 BUN/CREATININE RATIO NOT APPLICABLE Normal - [facility], Inc.; [employer], Inc. CHOL/HDLC RATIO 3.4 Normal [facility], [facility].; [employer], Inc. COMMENT(S) SEE NOTE Normal [facility], Inc.; [employer], Inc. eGFR NON-AFR. [place] 61 Normal [facility], [employer].; [employer], Inc. NON HDL CHOLESTEROL 172 Abnormal [facility], Inc.; [employer], Inc. 245 mg/dL Abnormal [facility], Inc.; [employer], Inc. 73 mg/dL Normal [facility], Inc.; [employer], Inc. 84 mg/dL Normal [place] [employer] [facility], Inc.; [employer], [employer]. 153 Abnormal [place] [employer], [employer].; [employer], Inc. 3.4 Normal [place] [employer] [facility], [employer].; [employer], Inc. 172 Abnormal [place] [employer], Inc.; [employer], Inc. 96 mg/dL Normal 65 - 99 mg/dL [place] [employer] [facility], Inc.; [employer], [employer]. 17 mg/dL Normal 7 - 25 mg/dL [facility], [employer].; [employer], Inc. 0.96 mg/dL Normal 0.50 - 0.99 mg/dL [employer], [employer].; [employer], [employer]. 61 Normal [place] [employer], [employer].; [employer], [employer]. 70 Normal [employer] [employer], [employer].; [employer], Inc. NOT APPLICABLE Normal [facility], [employer].; [employer], [employer]. 141 mmol/L Normal 135 - 146 mmol/L [place] [employer], Inc.; [employer], [employer]. 4.2 mmol/L Normal 3.5 - 5.3 mmol/L [facility], Inc.; [employer], Inc. 107 mmol/L Normal 98 - 110 mmol/L [facility], Inc.; [employer], Inc. 25 mmol/L Normal 20 - 32 mmol/L [facility], Inc.; [facility] [employer], [employer]. 8.8 mg/dL Normal 8.6 - 10.4 mg/dL [facility], Inc.; [facility], Inc. 5.4 Normal 3.8 - 10.8 [facility], Inc.; [place] [employer], Inc. 4.85 {Million/uL} Normal 3.80 - 5.1 0 {Million/uL} [place] [employer], Inc.; [employer], Inc. 14.4 g/dL Normal 11.7 - 15.5 g/dL [place] [employer] [facility], Inc.; [employer] 43.5 % Normal 35.0 - 45.0 % [employer] 89.7 fL Normal 80.0 - 100.0 fL [facility] [place], [employer].; [employer] 29.7 pg Normal 27.0 - 33.0 pg [employer] 33.1 g/dL Normal 32.0 - 36.0 g/dL [place] [employer] [facility], [employer].; [employer] 14.2 % Normal 11.0 - 15.0 % [employer], [employer] 127 Abnormal 140 - 400 [place] [employer] 11.3 fL Normal 7.5 - 12.5 fL [employer], [employer] 2705 {cells/uL} Normal 1500 - 7800 {cells/uL} [employer], [employer].; [employer], [employer] 2090 {cells/uL} Normal 850 - 3900 {cells/uL} [employer], [employer] 470 {cells/uL} Normal 200 - 950 {cells/uL} [employer], [employer], [employer] 103 {cells/uL} Normal 15 - 500 {cells/uL} [employer], [employer].; [employer], [employer] 32 {cells/uL} Normal 0 - 200 {cells/uL} [employer].; [employer]. 50.1 % Normal [employer].; [employer], [employer] 38.7 % Normal [employer].; [employer], [employer] 8.7 % Normal [employer], [employer].; [employer], [employer] 1.9 % Normal [employer].; [employer], [employer]. 0.6 % Normal [employer].; [employer], [employer] SEE NOTE Normal [employer].; [employer], [employer]. Laboratory - Cytologyon 12-17 Microscopic observation Cyto stain Nom (Cvx) SEE NOTE Normal [facility] [employer]. Laboratory - Microbiology an d Antimicrobial susceptibilityon 12-21-2017 Ova and parasites identified Trichrome stain Nom (Stl) Normal [facility] [employer]. Work Phone: Laboratory - Chemistry and C hemistry - challengeon 08-31-2017 Bilirubin Ql (U) Negative Normal [facility] [employer]. Ketones Ql (U) Negative Normal [facility] [employer], [employer]. pH (U) 6.0 [pH] Normal [employer].; [employer]. Specific gravity (U) [Rel density] 1.025 Normal [employer].; [employer]. Urobilinogen Qn (U) 3.5 mg/dL Normal [facility] [employer].; [employer]. Laboratory - Hematology and Cell countson 08-31-2017 Hemoglobin Ql (U) Large Abnormal [employer].; [employer]. Laboratory - Microbiology an d Antimicrobial susceptibilityon 08-31-2017 Amoxicillin+Clavulanate [Susc] S (<=2) Normal [employer].; [employer]. Work Phone: Ampicillin [Susc] S (<=2) Normal [facility]; [facility] Work Phone: Ampicillin+Sulbactam [Susc] S (<=2) Normal [facility]; [facility] Work Phone: Bacteria identified Cx Nom (U) Normal [facility]; [facility] Bacteria identified Cx Nom (Unsp spec) Abnormal [facility]; [facility] Cefepime [Susc] S (<=1) Normal [facility]; [facility] Work Phone: cefTAZidime [Susc] S (<=1) Normal [facility]; [facility] Work Phone: cefTRIAXone [Susc] S (<=1) Normal [facility]; [facility] Work Phone: Ciprofloxacin [Susc] S (<=0.25) Normal [facility]; [facility] Work Phone: Ertapenem [Susc] S (<=0.5) Normal [facility]; [facility] Work Phone: Gentamicin [Susc] S (<=1) Normal [facility]; [facility] Work Phone: Imipenem [Susc] S (<=0.25) Normal [facility]; [facility] Work Phone: levoFLOXacin [Susc] S (<=0.12) Normal [facility]; [facility] Work Phone: Nitrofurantoin [Susc] S (<=16) Normal [facility]; [facility] Work Phone: Piperacillin+Tazobactam [Susc] S (<=4) Normal [employer].; [employer]. Work Phone: Tobramycin [Susc] S (<=1) Normal [employer].; [employer]. Work Phone: Trimethoprim+Sulfametho xazole [Susc] S (<=20) Normal [employer].; [employer]. Work Phone: Laboratory - Specimen inform ationon 08-31-2017 Appearance (U) Cloudy Abnormal [employer] Color (U) yellow Normal [employer]; [employer] Specimen source Nom (Unsp spec) URINE Normal [employer].; [employer] Laboratory - Urinalysison Glucose Test strip (U) [Mass/Vol] Negative Normal [employer].; [employer]. Leukocyte esterase Test strip Ql (U) 2+ Normal [employer].; [employer]. Nitrite Ql (U) Positive Abnormal [employer].; [employer]. Protein Ql (U) 1+ Normal [facility] [employer].; [employer]. Laboratory - Microbiology an d Antimicrobial susceptibilityon 12-28-2016 S. pyogenes Ag EIA Ql (Throat) Positive Abnormal [employer].; [employer]. Laboratory - Chemistry and C hemistry - challengeon 03-05-2015 Hemoglobin.gastrointest inal Ql (Stl) Negative Normal [employer].; [employer]. Laboratory - Chemistry and C hemistry - challengeon 01-01-2015 Albumin [Mass/Vol] 4.0 g/dL Normal 3.4 - 4.8 g/dL [employer].; [employer]. Albumin [Mass/Vol] 1.7 g/dL Abnormal 0.9 - 1.6 [employer].; [employer]. ALP [Catalytic activity/Vol] 97 U/L Normal 38 - 126 U/L [facility].; [facility]. ALT [Catalytic activity/Vol] 19 U/L Normal 8 - 35 U/L [facility].; [facility]. ALT No additional P-5'-P [Catalytic activity/Vol] 19 U/L Normal 8 - 35 U/L [facility].; [facility]. AST [Catalytic activity/Vol] 20 U/L Normal 13 - 39 U/L [facility].; [facility]. Bilirubin [Mass/Vol] 0.5 mg/dL Normal 0.0 - 1 .5 mg/dL [facility]; [facility], [facility]. Calcium [Mass/Vol] 8.8 mg/dL Normal 8.6 - 10. 2 mg/dL [facility]; [facility]. Chloride [Moles/Vol] 103 mmol/L Normal 98 - 10 7 mmol/L [facility]; [facility], [facility]. Cholesterol [Mass/Vol] 207 mg/dL Abnormal 0 - 2 00 mg/dL [facility].; [facility], [facility]. Cholesterol in HDL [Mass or moles/Vol] 48 mg/dL Normal 40 - 60 mg/dL [facility]; [facility], [facility]. Cholesterol in LDL [Mass/Vol] 148 mg/dL Abnormal 0 - 129 mg/dL [facility].; [facility], [facility]. Cholesterol.total/Opal sterol in HDL [Mass ratio] 4.3 {ratio} Normal 0.0 - 5.0 [facility]; [facility] CO2 [Moles/Vol] 31.0 mmol/L Abnormal 13.0 - 29.0 mmol/L [facility]; [facility], [facility]. Comprehensive metabolic 2000 panel CMP with eGFR Normal [facility]; [facility], [facility] Creatinine [Mass/Vol] 0.8 mg/dL Normal 0.6 - 1.2 mg/dL [facility].; [facility], [facility]. GFR/1.73 sq M.predicted among blacks MDRD (S/P/Bld) [Vol rate/Area] mL/min/{1.73_m2} Normal 60 - 999 {ML/MINUTE} [facility], [facility].; [employer] [facility], [facility]. GFR/1.73 sq M.predicted MDRD (S/P/Bld) [Vol rate/Area] mL/min/{1.73_m2} Normal 60 - 999 {ML/MINUTE} [facility], [facility].; [place] [employer] [facility], [facility]. Globulin (S) [Mass/Vol] 2.3 g/dL Normal 1.5 - 3.8 g/dL [facility], [facility].; [place] [employer] [facility], [facility]. Glucose [Mass/Vol] 90 mg/dL Normal 74 - 106 mg/dL [facility].; [place] [employer] [facility], [facility]. Lipid 1996 panel LIPID PROFILE Normal [facility], [facility].; [place] [employer], [facility]. Potassium [Moles/Vol] 4.0 mmol/L Normal 3.5 - 5.1 mmol/L [facility].; [place] [employer], [employer]. Protein [Mass/Vol] 6.3 g/dL Abnormal 6.4 - 8.3 g/dL [facility], [facility].; [place] [employer], [employer]. Sodium [Moles/Vol] 140 mmol/L Normal 136 - 145 mmol/L [facility], [facility].; [place] [employer], [employer]. Triglyceride [Mass/Vol] 56 mg/dL Normal 0 - 150 mg/dL [facility], [facility].; [place] [employer], [employer]. Urea nitrogen [Mass/Vol] 12 mg/dL Normal 6 - 20 mg/dL [place] [employer] [facility], [facility].; [place], [facility]. Urea nitrogen/Creatinine [Mass ratio] 15 {ratio} Normal 0 - 30 {ratio} [place] [employer] [facility].; [place] [employer], [employer]. Laboratory - Hematology and Cell countson 01-01-2015 Basophils (Bld) [#/Vol] 0.10 {3/UL} Normal 0.00 - 0.10 {3/UL} [facility].; [employer] Basophils/100 WBC (Bld) 1.1 % Normal 0.0 - 2.0 % [facility].; [facility]. CBC W Auto Differential panel (Bld) CBC Normal [facility].; [facility], [facility] Eosinophils (Bld) [#/Vol] 0.10 {3/UL} Normal 0.00 - 0.50 {3/UL} [facility], [facility].; [facility], [facility]. Eosinophils/100 WBC (Bld) 1.8 % Normal 0.0 - 7.0 % [facility].; [facility], [facility] Erythrocyte distribution width (RBC) [Ratio] 14.2 % Normal 12.0 - 15.6 % [facility], [facility].; [facility], [facility] Hematocrit (Bld) [Volume fraction] 42.7 % Normal 34.0 - 46.0 % [facility], [facility].; [facility], [facility] Hemoglobin (Bld) [Mass/Vol] 14.1 g/dL Normal 12.0 - 16.0 g/dL [facility].; [facility], [facility]. Lymphocytes (Bld) [#/Vol] 1.50 {3/UL} Normal 0.80 - 2.80 {3/UL} [facility].; [facility], [facility]. Lymphocytes/100 WBC (Bld) 32.5 % Normal 20.0 - 45.0 % [facility], [facility].; [employer], [facility]. MCH (RBC) [Entitic mass] 30 pg Normal 27 - 33 pg [facility].; [facility], [facility]. MCHC (RBC) [Mass/Vol] 33 {X10_3} Normal 32 - 3 6 {X10_3} [facility].; [place] [employer] [facility], [facility]. MCV (RBC) [Entitic vol] 89 fL Normal 80 - 99 fL [facility].; [facility], [facility]. Monocytes (Bld) [#/Vol] 0.40 {3/UL} Normal 0.20 - 1.00 {3/UL} [facility], [facility].; [place] [employer], [facility]. Monocytes/100 WBC (Bld) 9.4 % Normal 0.0 - 10.0 % [facility] [employer].; [employer]. Morphology Bhupinder (Bld) [Interp] N/A Normal [employer].; [employer]. Neutrophils (Bld) [#/Vol] 2.50 {3/UL} Normal 1.50 - 7.10 {3/UL} [employer].; [employer], [employer]. Neutrophils/100 WBC (Bld) 55.2 % Normal 46.0 - 76.0 % [employer].; [employer], [employer]. Platelet mean volume (Bld) [Entitic vol] 8.9 fL Normal 6.6 - 10.5 fL [employer].; [employer], [employer]. Platelets (Bld) [#/Vol] 209 {3/UL} Normal 150 - 450 {3/UL} [employer].; [employer], [employer]. RBC (Bld) [#/Vol] 4.78 {6/UL} Normal 4.10 - 5.3 0 {6/UL} [employer].; [employer]. WBC (Bld) [#/Vol] 4.6 {3/UL} Normal 4.5 - 10.8 {3/UL} [employer].; [employer]. No Panel Informationon 01-01 AGE 64 {years} Normal [employer].; [employer], [employer]. MANUAL DIFF N/A Normal [employer].; [employer], [employer] 64 {years} Normal [employer].; [employer]. N/A Normal [employer].; [employer]. Laboratory - Chemistry and C hemistry - challengeon 08-21-2013 Bilirubin Ql (U) Negative Normal [facility] [employer], [employer]. Hemoglobin.gastrointest inal Ql (Stl) Negative Normal [employer].; [employer], [employer] Ketones Ql (U) Negative Normal [facility] [place], [employer].; [employer], [employer] pH (U) 5.5 [pH] Normal [employer].; [employer]. Specific gravity (U) [Rel density] 1.020 Normal [employer].; [employer]. Laboratory - Hematology and Cell countson 08-21-2013 Hemoglobin Ql (U) Negative Normal [employer].; [employer]. Laboratory - Specimen inform ationon 08-21-2013 Appearance (U) clear Normal [facility] [employer]. Color (U) yellow Normal [employer].; [employer]. Laboratory - Urinalysison Glucose Test strip (U) [Mass/Vol] Negative Normal [employer].; [employer]. Leukocyte esterase Test strip Ql (U) small Abnormal [employer].; [employer]. Nitrite Ql (U) Negative Normal [facility] [employer].; [employer]. Protein Ql (U) Negative Normal [facility] [employer].; [employer]. No Panel Informationon 08-21 UA - UROBILINOGEN 1.0 mg/dL Normal [employer].; [employer]. 1.0 mg/dL Normal [employer].; [employer]. Laboratory - Chemistry and C hemistry - challengeon 08-13-2013 Albumin [Mass/Vol] 4.2 g/dL Normal 3.6 - 5.1 g/dL [employer].; [employer]. Albumin/Globulin [Mass ratio] 1.6 {ratio} Normal 1.0 - 2.5 [employer].; [employer]. ALP [Catalytic activity/Vol] 101 U/L Normal 33 - 130 U/L [employer].; [employer]. ALT [Catalytic activity/Vol] 13 U/L Normal 6 - 29 U/L [employer].; [employer], [employer]. AST [Catalytic activity/Vol] 24 U/L Normal 10 - 35 U/L [employer].; [employer]. Bilirubin [Mass/Vol] 0.5 mg/dL Normal 0.2 - 1 .2 mg/dL [facility].; [facility], [facility]. Calcium [Mass/Vol] 8.9 mg/dL Normal 8.6 - 10. 4 mg/dL [facility], [facility].; [facility], [facility]. Chloride [Moles/Vol] 105 mmol/L Normal 98 - 11 0 mmol/L [facility], [facility].; [facility], [facility]. Cholesterol [Mass/Vol] 329 mg/dL Abnormal 125 - 200 mg/dL [facility], [facility].; [facility], [facility]. Cholesterol in HDL [Mass/Vol] 79 mg/dL Normal [facility], [facility].; [facility], [facility]. Cholesterol in LDL [Mass/Vol] 236 mg/dL Abnormal [facility].; [facility], [facility]. Cholesterol non HDL [Mass/Vol] 250 mg/dL Abnormal [facility], [facility].; [facility], [facility]. Cholesterol.total/Opal sterol in HDL [Mass ratio] 4.2 {ratio} Normal [facility].; [facility], [facility]. CO2 [Moles/Vol] 23 mmol/L Normal 19 - 30 mmol/L [facility], [facility].; [employer] [employer] [facility], [facility]. Creatinine [Mass/Vol] 0.82 mg/dL Normal 0.50 - 0.99 mg/dL [facility], [facility].; [place] [employer] [facility], [facility]. GFR/1.73 sq M.predicted among blacks MDRD (S/P/Bld) [Vol rate/Area] 90 {ML/MIN/1.73M2} Normal [facility], [facility].; [facility], [facility]. GFR/1.73 sq M.predicted MDRD (S/P/Bld) [Vol rate/Area] 77 {ML/MIN/1.73M2} Normal [facility], [facility].; [facility], [facility]. Globulin (S) [Mass/Vol] 2.6 g/dL Normal 1.9 - 3.7 g/dL [facility], [facility].; [place] [employer] [facility], Inc. Glucose [Mass/Vol] 89 mg/dL Normal 65 - 99 mg/dL [facility], [facility].; [facility], [facility]. Potassium [Moles/Vol] 4.4 mmol/L Normal 3.5 - 5.3 mmol/L [facility].; [facility], [facility]. Protein [Mass/Vol] 6.8 g/dL Normal 6.1 - 8.1 g/dL [facility].; [facility], [facility]. Sodium [Moles/Vol] 138 mmol/L Normal 135 - 146 mmol/L [facility], [facility].; [facility], [facility] Triglyceride [Mass/Vol] 70 mg/dL Normal [facility].; [facility], [facility]. TSH Qn 1.69 m[IU]/L Normal 0.40 - 4.50 {mIU/L} [facility].; [place] [employer] [facility], [facility] Urea nitrogen [Mass/Vol] 14 mg/dL Normal 7 - 25 mg/dL [facility].; [place] [employer] [facility], [facility] Urea nitrogen/Creatinine [Mass ratio] 16.7 mg/mg Normal 6 - 22 [facility].; [place] [employer] [facility]. Laboratory - Hematology and Cell countson 08-13-2013 Basophils (Bld) [#/Vol] 20 {Cells}/uL Normal 0 - 200 {Cells}/uL [facility].; [place] [employer], [facility]. Basophils/100 WBC (Bld) 0 % Normal 0 - 2 % [facility].; [place] [employer] [facility], [facility]. Eosinophils (Bld) [#/Vol] 60 {Cells}/uL Normal 15 - 500 {Cells}/uL [facility].; [place] [employer], [facility]. Eosinophils/100 WBC (Bld) 1 % Normal 0 - 8 % [facility].; [place] [employer], [facility]. Erythrocyte distribution width (RBC) [Ratio] 15.4 % Abnormal 11.0 - 15.0 % [facility].; [place] [employer], [facility]. Hematocrit (Bld) [Volume fraction] 42.1 % Normal 35.0 - 45.0 % [facility], [facility].; [place], [facility]. Hemoglobin (Bld) [Mass/Vol] 14.4 g/dL Normal 11.7 - 15.5 g/dL [facility].; [facility] Lymphocytes (Bld) [#/Vol] 1700 {Cells}/uL Normal 850 - 3900 {Cells}/uL [facility].; [facility], [facility]. Lymphocytes/100 WBC (Bld) 38 % Normal 15 - 49 % [facility].; [place] [employer] [facility], [facility]. MCH (RBC) [Entitic mass] 29.4 pg Normal 27.0 - 33.0 PG [facility].; [place] [employer] [facility], [facility]. MCHC (RBC) [Mass/Vol] 34.1 g/dL Normal 32.0 - 36.0 g/dL [facility].; [place] [employer], [facility]. MCV (RBC) [Entitic vol] 86.2 fL Normal 80.0 - 100.0 fL [facility].; [place] [employer] [facility], [facility]. Monocytes (Bld) [#/Vol] 460 {Cells}/uL Normal 20 0 - 950 {Cells}/uL [facility].; [place] [employer], [facility]. Monocytes/100 WBC (Bld) 10 % Normal 0 - 13 % [facility].; [place] [employer] [facility], [facility]. Neutrophils (Bld) [#/Vol] 2290 {Cells}/uL Normal 1500 - 7800 {Cells}/uL [facility].; [place] [employer], [facility]. Neutrophils/100 WBC (Bld) 51 % Normal 38 - 80 % [facility], [facility].; [place] [employer], [facility]. Platelets (Bld) [#/Vol] 161 10*3/uL Normal 140 - 400 10*3/uL [place] [employer] [facility].; [place] [employer], [facility]. RBC (Bld) [#/Vol] 4.88 10*6/uL Normal 3.80 - 5.1 0 10*6/uL [place] [employer] [place] [employer], [employer]. WBC (Bld) [#/Vol] 4.5 10*3/uL Normal 3.8 - 10.8 10*3/uL [place] [employer], [employer].; [employer], [employer]. Laboratoryon 04-27-2012 Lower GI hemoglobin IA Ql (Stl) Detected Abnormal [place] [employer].; [place] [employer], [employer]. Laboratory - Chemistry and C hemistry - challengeon 10-11-2011 Albumin [Mass/Vol] 4.1 g/dL Normal 3.6 - 5.1 g/dL [facility].; [facility], [facility]. Albumin/Globulin [Mass ratio] 1.6 {ratio} Normal 1.0 - 2.1 [facility].; [facility] ALP [Catalytic activity/Vol] 118 U/L Normal 33 - 130 U/L [facility].; [facility]. ALT [Catalytic activity/Vol] 45 U/L Abnormal 6 - 40 U/L [facility].; [facility]. AST [Catalytic activity/Vol] 34 U/L Normal 10 - 35 U/L [facility].; [facility]. Bilirubin [Mass/Vol] 0.5 mg/dL Normal 0.2 - 1 .2 mg/dL [facility].; [facility]. Calcium [Mass/Vol] 9.0 mg/dL Normal 8.6 - 10. 4 mg/dL [facility].; [facility]. Chloride [Moles/Vol] 102 mmol/L Normal 98 - 11 0 mmol/L [facility].; [facility], [facility]. CO2 [Moles/Vol] 26 mmol/L Normal 21 - 33 mmol/L [facility].; [facility] Creatinine [Mass/Vol] 0.80 mg/dL Normal 0.50 - 1.05 mg/dL [facility].; [facility], [facility]. GFR/1.73 sq M.predicted among blacks MDRD (S/P/Bld) [Vol rate/Area] 94 {ML/MIN/1.73M2} Normal [facility].; [facility], [facility]. GFR/1.73 sq M.predicted MDRD (S/P/Bld) [Vol rate/Area] 81 {ML/MIN/1.73M2} Normal [facility].; [place] [employer] [facility], [facility]. Globulin (S) [Mass/Vol] 2.6 g/dL Normal 2.2 - 3.9 g/dL [facility].; [facility]. Glucose [Mass/Vol] 99 mg/dL Normal 65 - 99 mg/dL [facility]; [facility]. Lipase [Catalytic activity/Vol] 10 U/L Normal 7 - 60 U/L [facility] [place]; [facility], [facility] Potassium [Moles/Vol] 3.8 mmol/L Normal 3.5 - 5.3 mmol/L [facility].; [facility] [place] Protein [Mass/Vol] 6.7 g/dL Normal 6.2 - 8.3 g/dL [facility] [place]; [facility], [facility] Sodium [Moles/Vol] 138 mmol/L Normal 135 - 146 mmol/L [facility] [place]; [facility], [facility] Urea nitrogen [Mass/Vol] 13 mg/dL Normal 7 - 25 mg/dL [facility] [place]; [facility], [facility] Urea nitrogen/Creatinine [Mass ratio] 16.6 mg/mg Normal 6 - 22 [facility] [place]; [facility] Laboratory - Hematology and Cell countson 10-11-2011 Basophils (Bld) [#/Vol] 20 {Cells}/uL Normal 0 - 200 {Cells}/uL [facility] [place]; [facility], [facility]. Basophils/100 WBC (Bld) 0 % Normal 0 - 2 % [facility].; [facility], [facility] Eosinophils (Bld) [#/Vol] 100 {Cells}/uL Normal 15 - 500 {Cells}/uL [facility].; [facility], [facility] Eosinophils/100 WBC (Bld) 2 % Normal 0 - 8 % [facility] [place]; [facility], [facility] Erythrocyte distribution width (RBC) [Ratio] 13.9 % Normal 11.0 - 15.0 % [facility] [place]; [facility], [facility] Hematocrit (Bld) [Volume fraction] 46.8 % Abnormal 35.0 - 45.0 % [facility] [place]; [facility], [facility] Hemoglobin (Bld) [Mass/Vol] 15.7 g/dL Abnormal 11.7 - 15.5 g/dL [facility], [facility].; [place] [employer], [facility]. Lymphocytes (Bld) [#/Vol] 1730 {Cells}/uL Normal 850 - 3900 {Cells}/uL [facility], [facility].; [place] [employer] Lymphocytes/100 WBC (Bld) 31 % Normal 15 - 49 % [facility] [place] [employer] MCH (RBC) [Entitic mass] 29.9 pg Normal 27.0 - 33.0 PG [facility], [facility].; [place] [employer], [facility]. MCHC (RBC) [Mass/Vol] 33.5 g/dL Normal 32.0 - 36.0 g/dL [facility], [facility].; [place] [employer] MCV (RBC) [Entitic vol] 89.3 fL Normal 80.0 - 100.0 fL [facility], [facility].; [place] [employer] Monocytes (Bld) [#/Vol] 500 {Cells}/uL Normal 20 0 - 950 {Cells}/uL [facility].; [employer] Monocytes/100 WBC (Bld) 9 % Normal 0 - 13 % [facility].; [place] [employer] [facility], [facility]. Neutrophils (Bld) [#/Vol] 3170 {Cells}/uL Normal 1500 - 7800 {Cells}/uL [facility], [facility].; [employer] Neutrophils/100 WBC (Bld) 57 % Normal 38 - 80 % [facility] [place], [employer].; [employer] Platelets (Bld) [#/Vol] 190 10*3/uL Normal 140 - 400 10*3/uL [place] [employer] RBC (Bld) [#/Vol] 5.24 10*6/uL Abnormal 3.80 - 5.1 0 10*6/uL [place] [employer] WBC (Bld) [#/Vol] 5.5 10*3/uL Normal 3.8 - 10.8 10*3/uL [place] [employer], [employer] Laboratoryon 05-22-2011 Lower GI hemoglobin IA Ql (Stl) Not detected Normal [place] [employer] [facility].; [employer]. Laboratory - Chemistry and C hemistry - challengeon 05-19-2011 Bilirubin Ql (U) Negative Normal [facility].; [employer], [employer]. Ketones Ql (U) Negative Normal [facility].; [employer], [employer]. pH (U) 5.0 [pH] Normal 4.6 - 8.0 [place] [employer] [facility].; [employer], [employer]. Specific gravity (U) [Rel density] 1.010 Normal 1.001 - 1.025 [place] [employer].; [employer], [employer] Laboratory - Coagulationon 0 05-19-2011 aPTT Coag (PPP) [Time] 29.6 s Normal 22.0 - 34.0 {SECS.} [facility] [employer], [employer]. INR Coag (PPP) [Relative time] 0.9 {INR} Normal [place] [employer] [facility].; [employer], [employer]. PT Coag (PPP) [Time] 10.3 s Normal 9.0 - 1 1.5 {SECS.} [employer].; [employer], [employer]. Laboratory - Hematology and Cell countson 05-19-2011 Hemoglobin Ql (U) Negative Normal [place] [employer].; [employer], [employer]. Laboratory - Specimen inform ationon 05-19-2011 Appearance (U) Clear Normal [facility].; [employer], [employer]. Color (U) Yellow Normal [employer].; [employer]. Laboratory - Urinalysison Glucose Test strip (U) [Mass/Vol] Negative Normal [employer].; [employer], [employer]. Leukocyte esterase Test strip Ql (U) Small Abnormal [employer].; [employer] Nitrite Ql (U) Negative Normal [facility] [employer].; [employer], [employer]. Protein Ql (U) Negative Normal [facility].; [employer], [employer]. No Panel Informationon 05-19 UA - UROBILINOGEN 0.2 mg/dL Normal [facility].; [place] [employer]. 0.2 mg/dL Normal [facility].; [place] [employer]. Laboratory - Chemistry and C hemistry - challengeon 05-17-2011 ALT [Catalytic activity/Vol] 17 U/L Normal 6 - 40 U/L [facility].; [place] [employer] [facility], [employer]. Calcium [Mass/Vol] 9.0 mg/dL Normal 8.6 - 10. 2 mg/dL [facility].; [place] [employer], [facility]. Cancer Ag 125 Qn 6.1 [arb'U]/mL Normal [facility].; [facility]. Chloride [Moles/Vol] 105 mmol/L Normal 98 - 11 0 mmol/L [facility].; [place] [employer], [employer]. Cholesterol [Mass/Vol] 294 mg/dL Abnormal 125 - 200 mg/dL [facility].; [place] [employer], [employer]. Cholesterol in HDL [Mass/Vol] 76 mg/dL Normal [facility].; [place] [employer]. Cholesterol in LDL [Mass/Vol] 198 mg/dL Abnormal [facility].; [place] [employer] [facility]. Cholesterol.total/Opal sterol in HDL [Mass ratio] 3.9 {ratio} Normal [facility].; [place] [employer]. CO2 [Moles/Vol] 24 mmol/L Normal 21 - 33 mmol/L [facility].; [place] [employer], [employer]. Creatinine [Mass/Vol] 0.68 mg/dL Normal 0.60 - 1.10 mg/dL [facility].; [place] [employer] [facility], [facility]. GFR/1.73 sq M.predicted among blacks MDRD (S/P/Bld) [Vol rate/Area] 111 {ML/MIN/1.73M2} Normal [facility], [facility].; [place] [employer] GFR/1.73 sq M.predicted MDRD (S/P/Bld) [Vol rate/Area] 96 {ML/MIN/1.73M2} Normal [facility].; [place] [employer]. Glucose [Mass/Vol] 89 mg/dL Normal 65 - 99 mg/dL [facility].; [place] [employer], [facility]. Potassium [Moles/Vol] 4.6 mmol/L Normal 3.5 - 5.3 mmol/L [facility].; [place] [employer], [employer]. Sodium [Moles/Vol] 141 mmol/L Normal 135 - 146 mmol/L [facility].; [place] [employer] [facility] Triglyceride [Mass/Vol] 100 mg/dL Normal [facility].; [place] [employer], [facility]. Urea nitrogen [Mass/Vol] 12 mg/dL Normal 7 - 25 mg/dL [facility].; [place] [employer], [employer]. Urea nitrogen/Creatinine [Mass ratio] 17.4 mg/mg Normal 6 - 22 [facility].; [place] [employer]. Laboratory - Hematology and Cell countson 05-17-2011 Basophils (Bld) [#/Vol] 10 {Cells}/uL Normal 0 - 200 {Cells}/uL [facility].; [employer]. Basophils/100 WBC (Bld) 0 % Normal 0 - 2 % [facility].; [place] [employer]. Eosinophils (Bld) [#/Vol] 90 {Cells}/uL Normal 15 - 500 {Cells}/uL [place] [employer] [facility].; [place] [employer], [employer]. Eosinophils/100 WBC (Bld) 2 % Normal 0 - 8 % [place] [employer] [facility].; [place] [employer]. Erythrocyte distribution width (RBC) [Ratio] 15.0 % Normal 11.0 - 15.0 % [place] [employer] [facility].; [employer], [employer]. Hematocrit (Bld) [Volume fraction] 43.3 % Normal 35.0 - 45.0 % [place] [employer].; [employer], [employer]. Hemoglobin (Bld) [Mass/Vol] 14.9 g/dL Normal 11.7 - 15.5 g/dL [place] [employer] [facility].; [place] [employer], [employer]. Lymphocytes (Bld) [#/Vol] 1610 {Cells}/uL Normal 850 - 3900 {Cells}/uL [place] [employer].; [employer]. Lymphocytes/100 WBC (Bld) 32 % Normal 15 - 49 % [place] [employer].; [employer], [employer]. MCH (RBC) [Entitic mass] 30.9 pg Normal 27.0 - 33.0 PG [place] [employer].; [employer] MCHC (RBC) [Mass/Vol] 34.5 g/dL Normal 32.0 - 36.0 g/dL [place] [employer].; [employer] MCV (RBC) [Entitic vol] 89.7 fL Normal 80.0 - 100.0 fL [place] [employer].; [employer], [employer]. Monocytes (Bld) [#/Vol] 290 {Cells}/uL Normal 20 0 - 950 {Cells}/uL [place] [employer].; [employer] Monocytes/100 WBC (Bld) 6 % Normal 0 - 13 % [facility].; [employer], [employer]. Neutrophils (Bld) [#/Vol] 2970 {Cells}/uL Normal 1500 - 7800 {Cells}/uL [place] [employer].; [employer], [employer]. Neutrophils/100 WBC (Bld) 60 % Normal 38 - 80 % [place] [employer].; [employer], [employer]. Platelets (Bld) [#/Vol] 192 10*3/uL Normal 140 - 400 10*3/uL [employer] RBC (Bld) [#/Vol] 4.83 10*6/uL Normal 3.80 - 5.1 0 10*6/uL [employer].; [employer], [employer]. WBC (Bld) [#/Vol] 5.0 10*3/uL Normal 3.8 - 10.8 10*3/uL [employer].; [employer], [employer]. Vital Signs Date Time Vital Sign Value Performing Clinician Facility 06-04-2025 13:30-0400 Body mass index (BMI) [Ratio] 32 kg/m2 Dr. Nohemi Lemus MD Work Phone: [facility] 06-04-2025 13:30-0400 Body temperature 97.1 [degF] Dr. Nohemi Lemus MD Work Phone: [facility] 06-04-2025 13:30-0400 Body weight 98.[address] Nohemi Lemus MD Work Phone: [facility] 06-04-2025 13:30-0400 Diastolic blood pressure 69 mm[Hg] Dr. Nohemi Lemus MD Work Phone: 3(663)[phone] [place] [address] 06-04-2025 13:30-0400 Heart rate 66 /min Dr. Nohemi Lemus MD Work Phone: 0(524)[phone] [place] [address] 06-04-2025 13:30-0400 Respiratory rate 16 /min Dr. Nohemi Lemus MD Work Phone: 4(167)[phone] [place] [address] 06-04-2025 13:30-0400 SaO2% (BldA) [Mass fraction] 97 % Dr. Nohemi Lemus MD Work Phone: 8(614)530-956612 [place] [address] 06-04-2025 13:30-0400 Systolic blood pressure 125 mm[Hg] Dr. Nohemi Lemus MD Work Phone: 7(742)[phone] [place] [address] 04-28-2025 14:46-0400 Body height 172.72 cm Marya Simmons LPN [facility], [facility].; [facility], [facility] 04-28-2025 14:46-0400 Body mass index (BMI) [Ratio] 32.84 kg/m2 Marya Simmons LPN [facility].; [facility] [place] 04-28-2025 14:46-0400 Body surface area Derived from formula 2.11 m2 Marya Simmons LPN [facility].; [facility] [place] 04-28-2025 14:46-0400 Body temperature 97.8 [degF] Marya Simmons LPN [facility]; [facility], [facility] 04-28-2025 14:46-0400 Body weight 97.98 kg Marya Simmons LPN [facility].; [facility] [place] 04-28-2025 14:46-0400 Diastolic blood pressure 79 mm[Hg] Marya Simmons LPN [place] [employer] [facility].; [employer]. 04-28-2025 14:46-0400 Heart rate 85 /min Marya Simmons LPN [place] [employer] [facility].; [employer]. 04-28-2025 14:46-0400 Inhaled oxygen concentration 21 % Marya Simmons [employer] [place] [employer] [facility].; [employer]. 04-28-2025 14:46-0400 SaO2% (BldA) [Mass fraction] 97 % Marya Simmons LPN [place] [employer] [facility].; [employer]. 04-28-2025 14:46-0400 Systolic blood pressure 123 mm[Hg] Marya Simmons LPN [place] [employer].; [employer]. 12-30-2024 14:44-0400 Body height 172.72 cm Sindy Mojgan [employer] Work Phone: [employer].; [employer]. 12-30-2024 14:44-0400 Body mass index (BMI) [Ratio] 33.6 kg/m2 Sindy Mojgan [employer] Work Phone: [employer].; [employer]. 12-30-2024 14:44-0400 Body surface area Derived from formula 2.13 m2 [employer] Work Phone: [employer].; [employer]. 12-30-2024 14:44-0400 Body weight 100.25 kg Sindy Mojgan [employer] Work Phone: [employer].; [employer]. 12-30-2024 14:44-0400 Diastolic blood pressure 66 mm[Hg] Sindy Mojgan [employer] Work Phone: [employer].; [employer]. 12-30-2024 14:44-0400 Heart rate 76 /min [employer] Work Phone: [employer].; [facility] [place] 12-30-2024 14:44-0400 Systolic blood pressure 100 mm[Hg] Sindy Ulrich LPN Work Phone: [facility] [place]; [facility] [place] 12-05-2024 13:28-0400 Body height 170.[address] Nohemi Lemus MD Work Phone: 6(420)639-542412 [place] [address] 12-05-2024 13:28-0400 Body mass index (BMI) [Ratio] 35.6 kg/m2 Dr. Nohemi Lemus MD Work Phone: 1(470)724-225112 [place] [address] 12-05-2024 13:28-0400 Body temperature 97.3 [degF] Dr. Nohemi Lemus MD Work Phone: 6(192)[phone] [address] 12-05-2024 13:28-0400 Body weight 103.[address] Nohemi Lemus MD Work Phone: 1(433)128-831912 [place] [address] 12-05-2024 13:28-0400 Diastolic blood pressure 76 mm[Hg] Dr. Nohemi Lemus MD Work Phone: 1(701)749-128612 [place] [address] 12-05-2024 13:28-0400 Heart rate 73 /min Dr. Nohemi Lemus MD Work Phone: 6(128)297-411312 [place] [address] 12-05-2024 13:28-0400 Respiratory rate 16 /min Dr. Nohemi Lemus MD Work Phone: 6(406)970-670312 [place] [address] 12-05-2024 13:28-0400 SaO2% (BldA) [Mass fraction] 96 % Dr. Nohemi Lemus MD Work Phone: 3(761)362-498112 [place] [address] 12-05-2024 13:28-0400 Systolic blood pressure 118 mm[Hg] Dr. Nohemi Lemus MD Work Phone: 5(236)982-093212 [place] [address] 11-29-2024 14:04-0400 Body mass index (BMI) [Ratio] 34.7 kg/m2 Dr. Nohemi Lemus MD Work Phone: [facility] 11-29-2024 14:04-0400 Body weight 100.[address] Nohemi Lemus MD Work Phone: [facility] 11-06-2024 11:23-0500 Body height 172.72 cm Sindy Mojgan [employer] Work Phone: [employer].; [employer]. 11-06-2024 11:23-0500 Body mass index (BMI) [Ratio] 33.3 kg/m2 Sindy Mojgna [employer] Work Phone: [employer].; [employer] 11-06-2024 11:23-0500 Body surface area Derived from formula 2.12 m2 Sindy Mojgan [employer] Work Phone: [employer].; [employer]. 11-06-2024 11:23-0500 Body temperature 73 [degF] Sindy Mojgan [employer] Work Phone: [employer].; [employer]. 11-06-2024 11:23-0500 Body weight 99.34 kg Sindy Mojgan [employer] Work Phone: [employer].; [employer]. 11-06-2024 11:23-0500 Diastolic blood pressure 78 mm[Hg] Sindy Mojgan [employer] Work Phone: [employer].; [employer]. 11-06-2024 11:23-0500 Systolic blood pressure 137 mm[Hg] Sindy Mojgan [employer] Work Phone: [employer].; [employer]. 09-02-2024 13:28-0500 Body mass index (BMI) [Ratio] 34.5 kg/m2 Dr. oNhemi Lemus MD Work Phone: [facility] 09-02-2024 13:28-0500 Body temperature 97.5 [degF] Dr. Nohemi Lemus MD Work Phone: [facility] 09-02-2024 13:28-0500 Body weight 100.[address] Nohemi Lemus MD Work Phone: [facility] 09-02-2024 13:28-0500 Diastolic blood pressure 79 mm[Hg] Dr. Nohemi Lemus MD Work Phone: [facility] 09-02-2024 13:28-0500 Heart rate 75 /min Dr. Nohemi Lemus MD Work Phone: [facility] 09-02-2024 13:28-0500 Respiratory rate 16 /min Dr. Nohemi Lemus MD Work Phone: [facility] 09-02-2024 13:28-0500 SaO2% (BldA) [Mass fraction] 96 % Dr. Nohemi Lemus MD Work Phone: [facility] 09-02-2024 13:28-0500 Systolic blood pressure 136 mm[Hg] Dr. Nohemi Lemus MD Work Phone: [facility] 08-19-2024 14:49-0500 Body height 172.72 cm [facility] Work [facility]: [employer] [facility].; [employer]. 08-19-2024 14:49-0500 Body mass index (BMI) [Ratio] 33.15 kg/m2 [facility] Work Phone: [employer] [facility].; [employer]. 08-19-2024 14:49-0500 Body surface area Derived from formula 2.12 m2 [facility] [employer] Work Phone: [employer].; [employer]. 08-19-2024 14:49-0500 Body weight 98.88 kg [facility] Work Phone: [employer].; [employer] 08-19-2024 14:49-0500 Diastolic blood pressure 85 mm[Hg] [facility] [employer] Work Phone: [employer].; [employer]. 08-19-2024 14:49-0500 Heart rate 83 /min Sindy Mojgan [employer] Work Phone: [employer].; [employer]. 08-19-2024 14:49-0500 Systolic blood pressure 129 mm[Hg] Sindy Mojgan [employer] Work Phone: [employer].; [employer]. 05-29-2024 14:27-0400 Body height 172.72 cm Sindy Mojgan [employer] Work Phone: [employer].; [employer]. 05-29-2024 14:27-0400 Body mass index (BMI) [Ratio] 33.15 kg/m2 Sindy Mojgan [employer] Work Phone: [employer].; [employer]. 05-29-2024 14:27-0400 Body surface area Derived from formula 2.12 m2 Sindy Mojgan [employer] Work Phone: [employer].; [employer]. 05-29-2024 14:27-0400 Body weight 98.88 kg Sindy Mojgan [employer] Work Phone: [employer].; [employer]. 05-29-2024 14:27-0400 Diastolic blood pressure 85 mm[Hg] Sindy Mojgan [employer] Work Phone: [employer].; [employer]. 05-29-2024 14:27-0400 Heart rate 77 /min Sindy Mojgan [employer] Work Phone: [employer].; [employer]. 05-29-2024 14:27-0400 Systolic blood pressure 130 mm[Hg] Sindy Mojgan [employer] Work Phone: [employer].; [employer]. 02-07-2024 13:57-0400 Body height 172.72 cm Sindy Mojgan [employer] Work Phone: [employer].; [employer]. 02-07-2024 13:57-0400 Body mass index (BMI) [Ratio] 33.15 kg/m2 Sindy Mojgan [employer] Work Phone: [employer].; [employer] 02-07-2024 13:57-0400 Body surface area Derived from formula 2.12 m2 Sindy Mojgan [employer] Work Phone: [employer].; [employer]. 02-07-2024 13:57-0400 Body weight 98.88 kg Sindy Mojgan [employer] Work Phone: [employer].; [employer]. 02-07-2024 13:57-0400 Diastolic blood pressure 68 mm[Hg] Sindy Mojgan [employer] Work Phone: [employer].; [employer]. 02-07-2024 13:57-0400 Heart rate 75 /min Sindy Mojgan [employer] Work Phone: [employer].; [employer]. 02-07-2024 13:57-0400 Systolic blood pressure 141 mm[Hg] Sindy Mojgan [employer] Work Phone: [employer].; [employer]. 10-23-2023 11:17-0500 Body height 172.72 cm Sindy Mojgan [employer] Work Phone: [employer].; [employer]. 10-23-2023 11:17-0500 Body mass index (BMI) [Ratio] 32.99 kg/m2 Sindy Mojgan [employer] Work Phone: [employer].; [employer]. 10-23-2023 11:17-0500 Body surface area Derived from formula 2.12 m2 Sindy Mojgan [employer] Work Phone: [employer].; [employer]. 10-23-2023 11:17-0500 Body temperature 100.7 [degF] Sindy Mojgan [employer] Work Phone: [employer].; [employer] 10-23-2023 11:17-0500 Body weight 98.43 kg Sindy Mojgan [employer] Work Phone: [employer].; [employer]. 10-23-2023 11:17-0500 Diastolic blood pressure 80 mm[Hg] Sindy Mojgan [employer] Work Phone: [employer].; [employer] 10-23-2023 11:17-0500 Heart rate 101 /min Sindy Mojgan [employer] Work Phone: [employer].; [employer]. 10-23-2023 11:17-0500 Systolic blood pressure 123 mm[Hg] Sindy Mojgan [employer] Work Phone: [employer].; [employer]. 08-25-2023 14:32-0500 Body height 172.72 cm Marya Simmons LPN [place] [employer] [facility].; [employer] 08-25-2023 14:32-0500 Body mass index (BMI) [Ratio] 33.15 kg/m2 Marya Simmons LPN [place] [employer] [facility].; [employer]. 08-25-2023 14:32-0500 Body surface area Derived from formula 2.12 m2 Marya Simmons LPN [place] [employer] [facility].; [employer]. 08-25-2023 14:32-0500 Body weight 98.88 kg Marya Simmons LPN [employer] [facility].; [employer]. 08-25-2023 14:32-0500 Diastolic blood pressure 67 mm[Hg] Marya Simmons LPN [employer] [facility].; [employer]. Comment on above: Patient Position: Sitting; Cuff Location : Left Arm; Cuff Size: Standard 08-25-2023 14:32-0500 Heart rate 65 /min Marya Simmons LPN [facility], [facility].; [place] [employer] [facility], [employer] Comment on above: Pattern: Regular 08-25-2023 14:32-0500 Systolic blood pressure 137 mm[Hg] Marya Simmons LPN [facility], [facility].; [place] [employer] [facility] Comment on above: Patient Position: Sitting; Cuff Location : Left Arm; Cuff Size: Standard 07-19-2023 10:30-0400 Body weight 98.43 kg Elfego Evans LPN [facility] [place] [employer] [facility] 07-19-2023 10:30-0400 Diastolic blood pressure 76 mm[Hg] Elfego Nathanbayron STERLING [facility], [facility].; [place] [employer] [facility], [employer] Comment on above: Patient Position: Sitting; Cuff Location : Left Arm; Cuff Size: Standard 07-19-2023 10:30-0400 Heart rate 73 /min Elfego Evans [employer]ARD [facility], [facility].; [employer] [facility], [email or web address]. Comment on above: Pattern: Regular 07-19-2023 10:30-0400 Systolic blood pressure 119 mm[Hg] Elfegocuong Evans ASHER [facility] [employer] [facility], [email or web address]. Comment on above: Patient Position: Sitting; Cuff Location : Left Arm; Cuff Size: Standard 07-05-2023 14:14-0400 Body height 172.72 cm Marya Simmons LPN [facility], [facility].; [employer] [facility], [facility]. 07-05-2023 14:14-0400 Body mass index (BMI) [Ratio] 32.99 kg/m2 Marya Simmons LPN [facility], [facility].; [facility], [facility]. 07-05-2023 14:14-0400 Body surface area Derived from formula 2.12 m2 Marya Simmons LPN [facility], [facility].; [facility], [facility]. 07-05-2023 14:14-0400 Body weight 98.43 kg Marya Simmons LPN [facility], [facility].; [employer] [facility] 07-05-2023 14:14-0400 Diastolic blood pressure 82 mm[Hg] Marya Simmons LPN [facility], [facility].; [facility], [facility]. Comment on above: Patient Position: Sitting; Cuff Location : Left Arm; Cuff Size: Standard 07-05-2023 14:14-0400 Heart rate 66 /min Marya Simmons LPN [facility], [facility].; [facility]. Comment on above: Pattern: Regular 07-05-2023 14:14-0400 Systolic blood pressure 129 mm[Hg] Marya Simmons LPN [facility], [facility].; [facility]. Comment on above: Patient Position: Sitting; Cuff Location : Left Arm; Cuff Size: Standard 05-24-2023 14:41-0400 Body height 175.[address] Nohemi Lemus Work Phone: 1(006)894-344312 [place] [address] 05-24-2023 14:41-0400 Body mass index (BMI) [Ratio] 32.1 kg/m2 Dr. Nohemi Lemus Work Phone: 2(180)308-294283 [address] 05-24-2023 14:41-0400 Body temperature 97.7 [degF] Dr. Nohemi Lemus Work Phone: 4(986)213-044812 [place] [address] 05-24-2023 14:41-0400 Body weight 98.[address] Nohemi Lemus Work Phone: 8(705)444-102412 [place] [address] 05-24-2023 14:41-0400 Diastolic blood pressure 61 mm[Hg] Dr. Nohemi Lemus Work Phone: 1(395)641-303312 [place] [address] 05-24-2023 14:41-0400 Heart rate 74 /min Dr. Nohemi Lemus Work Phone: [facility] 05-24-2023 14:41-0400 Respiratory rate 16 /min Dr. Nohemi Lemus Work Phone: [facility] 05-24-2023 14:41-0400 SaO2% (BldA) [Mass fraction] 96 % Dr. Nohemi Lemus Work Phone: [facility] 05-24-2023 14:41-0400 Systolic blood pressure 95 mm[Hg] Dr. Nohemi Lemus Work Phone: 4(082)303-417212 [place] [address] 03-27-2023 11:09-0400 Body mass index (BMI) [Ratio] 31.4 kg/m2 Dr. Nohemi Lemus Work Phone: 5(425)817-933683 [address] 03-27-2023 11:09-0400 Body temperature 98.2 [degF] Dr. Nohemi Lemus Work Phone: 0(932)128-101665 [place] [address] 03-27-2023 11:09-0400 Body weight 96.[address] Nohemi Lemus Work Phone: 2(261)156-586665 [place] [address] 03-27-2023 11:09-0400 Diastolic blood pressure 79 mm[Hg] Dr. Nohemi Lemus Work Phone: 5(435)190-474165 [place] [address] 03-27-2023 11:09-0400 Heart rate 65 /min Dr. Nohemi Lemus Work Phone: 1(640)348-544465 [place] [address] 03-27-2023 11:09-0400 Respiratory rate 16 /min Dr. Nohemi Lemus Work Phone: 0(900)077-508565 [place] [address] 03-27-2023 11:09-0400 SaO2% (BldA) [Mass fraction] 95 % Dr. Nohemi Lemus Work Phone: 1(154)588-106665 [place] [address] 03-27-2023 11:09-0400 Systolic blood pressure 133 mm[Hg] Dr. Nohemi Lemus Work Phone: 6(772)277-389965 [place] [address] 12-28-2022 13:59-0400 Body height 175.[address] Nohemi Lemus Work Phone: 2(672)990-431465 [place] [address] 12-28-2022 13:52-0400 Body mass index (BMI) [Ratio] 31.1 kg/m2 Dr. Nohemi Lemus Work Phone: 2(492)479-121765 [place] [address] 12-28-2022 13:52-0400 Body temperature 97.2 [degF] Dr. Nohemi Lemus Work Phone: 2(664)116-660265 [place] [address] 12-28-2022 13:52-0400 Body weight 95.[address] Nohemi Lemus Work Phone: 6(011)356-584183 [address] 12-28-2022 13:52-0400 Diastolic blood pressure 73 mm[Hg] Dr. Nohemi Lemus Work Phone: 2(088)494-266112 [place] [address] 12-28-2022 13:52-0400 Heart rate 68 /min Dr. Nohemi Lemus Work Phone: 8(267)996-034765 [place] [address] 12-28-2022 13:52-0400 Respiratory rate 18 /min Dr. Nohemi Lemus Work Phone: 8(683)434-482065 [place] [address] 12-28-2022 13:52-0400 SaO2% (BldA) [Mass fraction] 96 % Dr. Nohemi Lemus Work Phone: 8(378)114-723965 [place] [address] 12-28-2022 13:52-0400 Systolic blood pressure 127 mm[Hg] Dr. Nohemi Lemus Work Phone: 5(655)731-104365 [place] [address] 12-27-2022 14:49-0400 Body mass index (BMI) [Ratio] 31.4 kg/m2 Dr. Nohemi Lemus Work Phone: 0(451)287-170065 [place] [address] 12-27-2022 14:49-0400 Body temperature 97 [degF] Dr. Nohemi Lemsu Work Phone: 6(097)969-422265 [place] [address] 12-27-2022 14:49-0400 Body weight 96.[address] Nohemi Lemus Work Phone: 1(174)838-398365 [place] [address] 12-27-2022 14:49-0400 Diastolic blood pressure 77 mm[Hg] Dr. Nohemi Lemus Work Phone: 3(218)138-486665 [place] [address] 12-27-2022 14:49-0400 Heart rate 64 /min Dr. Nohemi Lemus Work Phone: 7(068)001-946765 [place] [address] 12-27-2022 14:49-0400 Respiratory rate 16 /min Dr. Nohemi Lemus Work Phone: 6(792)945-421165 [place] [address] 12-27-2022 14:49-0400 SaO2% (BldA) [Mass fraction] 96 % Dr. Nohemi Lemus Work Phone: 7(899)487-129812 [place] [address] 12-27-2022 14:49-0400 Systolic blood pressure 125 mm[Hg] Dr. Nohemi Lemus Work Phone: [facility] 12-12-2022 13:25-0400 Body mass index (BMI) [Ratio] 31.1 kg/m2 Dr. Nohemi Lemus Work Phone: [facility] 12-12-2022 13:25-0400 Body temperature 97.3 [degF] Dr. Nohemi Lemus Work Phone: [facility] 12-12-2022 13:25-0400 Body weight 95.[address] Nohemi Lemus Work Phone: 5(572)839-358112 [place] [address] 12-12-2022 13:25-0400 Diastolic blood pressure 79 mm[Hg] Dr. Nohemi Leums Work Phone: 3(753)022-861412 [place] [address] 12-12-2022 13:25-0400 Heart rate 69 /min Dr. Nohemi Lemus Work Phone: 8(613)196-420612 [place] [address] 12-12-2022 13:25-0400 Respiratory rate 16 /min Dr. Nohemi Lemus Work Phone: 5(570)979-368612 [place] [address] 12-12-2022 13:25-0400 SaO2% (BldA) [Mass fraction] 97 % Dr. Nohemi Lemus Work Phone: [facility] 12-12-2022 13:25-0400 Systolic blood pressure 122 mm[Hg] Dr. Nohemi Lemus Work Phone: [facility] 07-11-2022 09:55-0400 Body height 172.72 cm [facility] Work Phone: [facility], [email or web address] [facility], [facility] 07-11-2022 09:55-0400 Body mass index (BMI) [Ratio] 31.17 kg/m2 [facility] Work Phone: [facility], [facility].; [facility], [facility] 07-11-2022 09:55-0400 Body surface area Derived from formula 2.07 m2 Sindy Ulrich LPN Work Phone: [facility]. 07-11-2022 09:55-0400 Body weight 92.99 kg Sindy Ulrich LPN Work Phone: [facility] [employer] [employer] 07-11-2022 09:55-0400 Diastolic blood pressure 82 mm[Hg] Sindy Ulrich LPN Work Phone: [facility].; [employer]. Comment on above: Patient Position: Sitting; Cuff Location : Left Arm; Cuff Size: Large 07-11-2022 09:55-0400 Heart rate 86 /min Sindy Ulrich LPN Work Phone: [facility].; [employer]. Comment on above: Pattern: Regular 07-11-2022 09:55-0400 Systolic blood pressure 125 mm[Hg] Sindy Ulrich LPN Work Phone: [facility].; [employer]. Comment on above: Patient Position: Sitting; Cuff Location : Left Arm; Cuff Size: Large 04-19-2022 14:10-0400 Body height 172.72 cm Marya Simmons LPN [facility], [facility].; [facility] [employer]. 04-19-2022 14:10-0400 Body mass index (BMI) [Ratio] 31.93 kg/m2 Marya Simmons LPN [facility].; [employer] [facility], [email or web address]. 04-19-2022 14:10-0400 Body surface area Derived from formula 2.09 m2 Marya Simmons LPN [facility].; [place] [employer] [facility]. 04-19-2022 14:10-0400 Body temperature 97.8 [degF] Marya [facility].; [employer]. Comment on above: Method: Tympanic 04-19-2022 14:100400 Body weight 95.26 kg Marya Simmons LPN [facility].; [employer]. 04-19-2022 14:10-0400 Diastolic blood pressure 77 mm[Hg] Marya Simmons LPN [facility], [facility].; [employer] [employer] [facility], [email or web address]. Comment on above: Patient Position: Sitting; Cuff Location : Left Arm; Cuff Size: Standard 04-19-2022 14:10-0400 Heart rate 78 /min Marya Simmons LPN [facility] [employer], [email or web address]. Comment on above: Pattern: Regular 04-19-2022 14:10-0400 Systolic blood pressure 125 mm[Hg] Marya Troy STERLING [facility], [facility].; [employer], [email or web address]. Comment on above: Patient Position: Sitting; Cuff Location : Left Arm; Cuff Size: Standard 03-24-2022 14:32-0400 Body height 172.72 cm Audrey Pritchard LPN [facility], [facility].; [employer] [employer] [facility], [facility]. 03-24-2022 14:32-0400 Body mass index (BMI) [Ratio] 31.78 kg/m2 Audrey Pritchard LPN [facility], [facility].; [employer] [employer] [facility], [facility]. 03-24-2022 14:32-0400 Body surface area Derived from formula 2.08 m2 Audrey Pritchard LPN [facility], [facility].; [employer] [employer] [facility], [facility]. 03-24-2022 14:32-0400 Body weight 94.8 kg Audrey Pritchard LPN [facility], [facility].; [employer] [employer] [facility], [facility]. 03-24-2022 14:32-0400 Diastolic blood pressure 79 mm[Hg] Audrey Pritchard LPN [facility], [facility].; [employer] [facility], [email or web address]. Comment on above: Patient Position: Sitting; Cuff Location : Left Arm; Cuff Size: Standard 03-24-2022 14:32-0400 Heart rate 80 /min Audrey Pritchard LPN [facility], [facility].; [employer], [email or web address]. Comment on above: Pattern: Regular 03-24-2022 14:32-0400 Systolic blood pressure 119 mm[Hg] Audrey Pritchard LPN [facility], [facility].; [employer], [email or web address]. Comment on above: Patient Position: Sitting; Cuff Location : Left Arm; Cuff Size: Standard 03-10-2022 09:30-0400 Body height 172.72 cm Marya Simmons LPN [facility], [facility].; [facility], [facility]. 03-10-2022 09:30-0400 Body mass index (BMI) [Ratio] 31.47 kg/m2 Marya Simmons LPN [facility], [facility].; [facility], [facility]. 03-10-2022 09:30-0400 Body surface area Derived from formula 2.07 m2 Marya Simmons LPN [facility], [facility].; [facility], [facility]. 03-10-2022 09:30-0400 Body temperature 98.6 [degF] Marya Simmons LPN [facility], [facility].; [facility], [facility]. Comment on above: Method: Tympanic 03-10-2022 09:30-0400 Body weight 93.9 kg Marya Simmons LPN [facility], [facility].; [facility], [facility]. 03-10-2022 09:30-0400 Diastolic blood pressure 79 mm[Hg] Marya Simmons LPN [facility], [facility].; [employer] [employer] [facility], [email or web address]. Comment on above: Patient Position: Sitting; Cuff Location : Left Arm; Cuff Size: Standard 03-10-2022 09:30-0400 Heart rate 91 /min Marya Simmons LPN [facility], [facility].; [place] [employer] [facility] Comment on above: Pattern: Regular 03-10-2022 09:30-0400 Systolic blood pressure 121 mm[Hg] Marya Simmons LPN [facility], [facility].; [facility], [facility]. Comment on above: Patient Position: Sitting; Cuff Location : Left Arm; Cuff Size: Standard 11-12-2021 11:03-0500 Body height 172.72 cm Sindy Ulrich LPN Work Phone: [facility], [facility].; [facility], [facility]. 11-12-2021 11:03-0500 Body mass index (BMI) [Ratio] 31.78 kg/m2 Sindy Ulrich LPN Work Phone: [facility], [facility].; [facility], [facility]. 11-12-2021 11:03-0500 Body surface area Derived from formula 2.08 m2 Sindy Mojgan [employer]ARD Work Phone: [employer].; [employer]. 11-12-2021 11:03-0500 Body weight 94.8 kg Sindy Mojgan [employer] Work Phone: [employer].; [employer]. 11-12-2021 11:03-0500 Diastolic blood pressure 77 mm[Hg] Sindy Mojgan [employer]AL [employer]ARD Work Phone: [employer].; [employer]. Comment on above: Patient Position: Sitting; Cuff Location : Left Arm; Cuff Size: Standard 11-12-2021 11:03-0500 Heart rate 81 /min Sindy Mojgan [employer]PER[employer]ARD Work Phone: [employer].; [employer]. Comment on above: Pattern: Regular 11-12-2021 11:03-0500 Systolic blood pressure 144 mm[Hg] Sindy Mojgan [employer]ARD Work Phone: [employer].; [employer]. Comment on above: Patient Position: Sitting; Cuff Location : Left Arm; Cuff Size: Standard 07-07-2021 14:32-0400 Body height 172.72 cm Sindy Mojgan [employer]ARD Work Phone: [employer].; [employer]. 07-07-2021 14:32-0400 Body mass index (BMI) [Ratio] 31.02 kg/m2 Sindy Mojgan [employer] Work Phone: [employer].; [employer]. 07-07-2021 14:32-0400 Body surface area Derived from formula 2.06 m2 Sindy Mojgan [employer] SU[employer]ARD Work Phone: [employer].; [employer]. 07-07-2021 14:32-0400 Body weight 92.53 kg Sindy Mojgan [employer]AL [employer] SUPER[employer]ARD Work Phone: [facility].; [employer] [facility]. 07-07-2021 14:32-0400 Diastolic blood pressure 72 mm[Hg] Sindy Ulrich [employer]AL [employer] SUPER[employer]ARD Work Phone: [facility].; [employer]. Comment on above: Patient Position: Sitting; Cuff Location : Left Arm; Cuff Size: Large 07-07-2021 14:32-0400 Heart rate 85 /min Sindy Ulrich LPN Work Phone: [facility] [employer] [employer]. Comment on above: Pattern: Regular 07-07-2021 14:32-0400 Systolic blood pressure 112 mm[Hg] Sindy Ulrich [employer]ARD Work Phone: [facility].; [employer]. Comment on above: Patient Position: Sitting; Cuff Location : Left Arm; Cuff Size: Large 02-24-2021 15:03-0400 Body height 172.72 cm Cindy John [facility], [facility].; [place] [employer] [facility]. 02-24-2021 15:03-0400 Body mass index (BMI) [Ratio] 31.63 kg/m2 Cindy Bell Gasper [facility].; [place] [employer] [facility]. 02-24-2021 15:03-0400 Body surface area Derived from formula 2.08 m2 Cindy [facility].; [place] [employer] [facility]. 02-24-2021 15:03-0400 Body temperature 97.7 [degF] Cindy [facility].; [employer]. Comment on above: Method: Tympanic 02-24-2021 15:030400 Body weight 94.35 kg Cindy [facility].; [place]. 02-24-2021 15:03-0400 Diastolic blood pressure 71 mm[Hg] Cindy [facility].; [employer]. Comment on above: Patient Position: Sitting; Cuff Location : Left Arm; Cuff Size: Standard 02-24-2021 15:03-0400 Heart rate 76 /min Cindy Bell Gasper STERLING [facility] [employer], [email or web address]. Comment on above: Pattern: Regular 02-24-2021 15:03-0400 Systolic blood pressure 108 mm[Hg] Cindy John [employer]OR YARD [facility] [employer] Comment on above: Patient Position: Sitting; Cuff Location : Left Arm; Cuff Size: Standard 11-12-2020 10:27-0500 Body height 172.72 cm Norma Alyssa STERLING [facility] [employer], [facility]. 11-12-2020 10:27-0500 Body mass index (BMI) [Ratio] 32.54 kg/m2 Norma Adelaugg [employer] [facility] [employer], [facility]. 11-12-2020 10:27-0500 Body surface area Derived from formula 2.1 m2 Norma Alyssa [employer] [employer] [facility], [facility].; [employer], [facility]. 11-12-2020 10:27-0500 Body weight 97.07 kg Norma Adelaugg [employer]AL [employer] [facility], [facility].; [employer], [facility]. 11-12-2020 10:27-0500 Diastolic blood pressure 80 mm[Hg] Normachika Chapmanugg GENERAL [employer] SUPER[employer]OR YARD [employer] [facility], [facility].; [employer], [email or web address]. Comment on above: Patient Position: Sitting; Cuff Location : Left Arm; Cuff Size: Standard 11-12-2020 10:27-0500 Heart rate 87 /min Normachika Chapmanugg [employer] [facility], [facility].; [employer], [email or web address]. Comment on above: Pattern: Regular 11-12-2020 10:27-0500 Systolic blood pressure 121 mm[Hg] Norma Zaugg GENERAL [employer] SUPER[employer]OR YARD [employer], [facility].; [employer], [email or web address]. Comment on above: Patient Position: Sitting; Cuff Location : Left Arm; Cuff Size: Standard 05-15-2020 15:06-0400 Body height 172.72 cm Sindy Ulrich LPN Work Phone: [place] [employer] [facility], [email or web address].; [employer]. 05-15-2020 15:06-0400 Body mass index (BMI) [Ratio] 31.02 kg/m2 Sindy Ulrich LPN Work Phone: [employer].; [employer]. 05-15-2020 15:06-0400 Body surface area Derived from formula 2.06 m2 Sindy Ulrich LPN Work Phone: [employer].; [employer]. 05-15-2020 15:06-0400 Body weight 92.53 kg Sindy Ulrich LPN Work Phone: [employer].; [employer]. 05-15-2020 15:06-0400 Diastolic blood pressure 72 mm[Hg] Snidy Ulrich LPN Work Phone: [employer].; [employer]. Comment on above: Patient Position: Sitting; Cuff Location : Left Arm; Cuff Size: Standard 05-15-2020 15:06-0400 Heart rate 65 /min Sindy Ulrich LPN Work Phone: [employer].; [employer]. Comment on above: Pattern: Regular 05-15-2020 15:06-0400 Systolic blood pressure 123 mm[Hg] Sindy Ulrich LPN Work Phone: [employer].; [employer]. Comment on above: Patient Position: Sitting; Cuff Location : Left Arm; Cuff Size: Standard 05-11-2020 09:38-0400 Body height 172.72 cm Sindy Ulrich LPN Work Phone: [employer].; [employer]. 05-11-2020 09:38-0400 Body mass index (BMI) [Ratio] 31.02 kg/m2 Sindy Ulrich [employer] Work Phone: [employer].; [employer]. 05-11-2020 09:38-0400 Body surface area Derived from formula 2.06 m2 Sindy Ulrich [employer] Work Phone: [employer].; [employer]. 05-11-2020 09:38-0400 Body weight 92.53 kg Sindyromero Meloy [employer] Work Phone: [employer].; [employer]. 05-11-2020 09:38-0400 Diastolic blood pressure 67 mm[Hg] Sindy Mojgan [employer]AL [employer] SUPER[employer] Work Phone: [employer].; [employer]. Comment on above: Patient Position: Sitting; Cuff Location : Left Arm; Cuff Size: Standard 05-11-2020 09:38-0400 Heart rate 99 /min Sindy Meloy [employer] Work Phone: [employer].; [employer]. Comment on above: Pattern: Regular 05-11-2020 09:38-0400 Systolic blood pressure 108 mm[Hg] Sindy Mojgan [employer] Work Phone: [employer].; [employer]. Comment on above: Patient Position: Sitting; Cuff Location : Left Arm; Cuff Size: Standard 01-02-2019 15:05-0400 Body height 172.72 cm Sindy Meloy [employer] Work Phone: [employer].; [employer]. 01-02-2019 15:05-0400 Body mass index (BMI) [Ratio] 33.45 kg/m2 Sindy Mojgan [employer] Work Phone: [employer].; [employer]. 01-02-2019 15:05-0400 Body surface area Derived from formula 2.13 m2 Sindy Mojgan [employer] Work Phone: [employer].; [employer]. 01-02-2019 15:05-0400 Body weight 99.79 kg Sindy Mojgan [employer] Work Phone: [employer].; [employer]. 01-02-2019 15:05-0400 Diastolic blood pressure 63 mm[Hg] Sindy Mojgan [employer] Work Phone: [employer].; [employer]. Comment on above: Patient Position: Sitting; Cuff Location : Left Arm; Cuff Size: Standard 01-02-2019 15:05-0400 Heart rate 58 /min Sindy Ulrich LPN Work Phone: [employer].; [employer]. Comment on above: Pattern: Regular 01-02-2019 15:05-0400 Systolic blood pressure 118 mm[Hg] Sindy Ulrich LPN Work Phone: [employer].; [employer]. Comment on above: Patient Position: Sitting; Cuff Location : Left Arm; Cuff Size: Standard 11-26-2018 16:33-0400 Body height 172.72 cm Sindy Ulrich LPN Work Phone: [employer].; [employer]. 11-26-2018 16:33-0400 Body mass index (BMI) [Ratio] 32.54 kg/m2 Sindy Ulrich LPN Work Phone: [employer].; [employer]. 11-26-2018 16:33-0400 Body surface area Derived from formula 2.1 m2 Sindy Ulrich LPN Work Phone: [employer].; [employer]. 11-26-2018 16:33-0400 Body temperature 99.5 [degF] Sindy Ulrich LPN Work Phone: [employer].; [employer]. Comment on above: Method: Tympanic 11-26-2018 16:33-0400 Body weight 97.07 kg Sindy Ulrich LPN Work Phone: [employer].; [employer]. 11-26-2018 16:33-0400 Diastolic blood pressure 79 mm[Hg] Sindy Ulrich [employer] Work Phone: [employer].; [employer]. Comment on above: Patient Position: Sitting; Cuff Location : Left Arm; Cuff Size: Standard 11-26-2018 16:33-0400 Heart rate 88 /min Sindy Mojgan [employer] Work Phone: [employer].; [employer]. Comment on above: Pattern: Regular 11-26-2018 16:33-0400 Systolic blood pressure 138 mm[Hg] Sindy Mojgan GENERAL [employer] Work Phone: [facility]. Comment on above: Patient Position: Sitting; Cuff Location : Left Arm; Cuff Size: Standard 11-03-2017 11:00-0500 Body height 172.72 cm Sindy Mojgan GENERAL [employer] Work Phone: [facility].; [facility]. 11-03-2017 11:00-0500 Body mass index (BMI) [Ratio] 30.56 kg/m2 Sindy Mojgan [employer]AL [employer] Work Phone: [facility].; [facility]. 11-03-2017 11:00-0500 Body surface area Derived from formula 2.05 m2 Sindy Mojgan [employer]AL [employer] Work Phone: [facility].; [facility]. 11-03-2017 11:00-0500 Body weight 91.17 kg Sindy Mojgan [employer]AL [employer] Work Phone: [facility].; [facility]. 11-03-2017 11:00-0500 Diastolic blood pressure 68 mm[Hg] Sindy Mojgan [employer]AL [employer] Work Phone: [facility].; [facility]. Comment on above: Patient Position: Sitting; Cuff Location : Left Arm; Cuff Size: Large 11-03-2017 11:00-0500 Heart rate 58 /min Sindy Mojgan [employer]AL [employer] Work Phone: [facility].; [facility]. Comment on above: Pattern: Regular 11-03-2017 11:00-0500 Systolic blood pressure 117 mm[Hg] Sindy Mojgan GENERAL [employer] Work Phone: [facility].; [facility]. Comment on above: Patient Position: Sitting; Cuff Location : Left Arm; Cuff Size: Large 10-26-2017 11:17-0500 Body height 172.72 cm Neilee L Vess GENERAL [employer] 10-26-2017 11:17-0500 Body mass index (BMI) [Ratio] 31.02 kg/m2 Neilee L Vess GENERAL [employer] 10-26-2017 11:17-0500 Body surface area Derived from formula 2.06 m2 Neilee L Vess GENERAL [employer] [facility]. 10-26-2017 11:17-0500 Body weight 92.53 kg Neilee L Vess GENERAL [employer], [email or web address] [facility]. 10-26-2017 11:17-0500 Diastolic blood pressure 75 mm[Hg] Neilee L Vess GENERAL [employer], [email or web address].; [facility]. Comment on above: Patient Position: Sitting; Cuff Location : Right Arm; Cuff Size: Standard 10-26-2017 11:17-0500 Heart rate 75 /min Neilee L Vess GENERAL [employer], [email or web address] [facility]. Comment on above: Pattern: Regular 10-26-2017 11:17-0500 Systolic blood pressure 137 mm[Hg] Neilee L Vess GENERAL [employer] [facility]. Comment on above: Patient Position: Sitting; Cuff Location : Right Arm; Cuff Size: Standard 08-31-2017 11:46-0500 Body height 172.72 cm Neilee L Vess GENERAL [employer] [facility]. 08-31-2017 11:46-0500 Body mass index (BMI) [Ratio] 30.41 kg/m2 Neilee L Vess GENERAL [employer] [facility]. 08-31-2017 11:46-0500 Body surface area Derived from formula 2.04 m2 Neilee L Vess [employer]AL [employer] [facility]. 08-31-2017 11:46-0500 Body temperature 97.5 [degF] Neilee L Vess GENERAL [employer] [facility]. Comment on above: Method: Tympanic 08-31-2017 11:46-0500 Body weight 90.72 kg Neilee L Vess GENERAL [employer] [facility]. 08-31-2017 11:46-0500 Diastolic blood pressure 67 mm[Hg] Neilee L Vess GENERAL [employer] [facility]. Comment on above: Patient Position: Sitting; Cuff Location : Left Arm; Cuff Size: Standard 08-31-2017 11:46-0500 Heart rate 76 /min Streaming Erailee L Vess GENERAL [employer] [facility]. Comment on above: Pattern: Regular 08-31-2017 11:46-0500 Systolic blood pressure 120 mm[Hg] Neilee L Vess GENERAL [employer] [facility]. Comment on above: Patient Position: Sitting; Cuff Location : Left Arm; Cuff Size: Standard 12-28-2016 14:51-0400 Body height 172.72 cm Wanda Lopez RN [facility]. 12-28-2016 14:51-0400 Body mass index (BMI) [Ratio] 31.78 kg/m2 Wanda Lopez RN [facility]. 12-28-2016 14:51-0400 Body surface area Derived from formula 2.08 m2 Wanda Lopez RN [facility]. 12-28-2016 14:51-0400 Body temperature 99.5 [degF] Wanda Lopez RN [facility].; [facility]. Comment on above: Method: Tympanic 12-28-2016 14:51-0400 Body weight 94.8 kg Wanda Lopez RN [facility].; [facility]. 12-28-2016 14:51-0400 Diastolic blood pressure 71 mm[Hg] Wanda Lopez RN [facility].; [facility]. Comment on above: Patient Position: Sitting; Cuff Location : Left Arm; Cuff Size: Standard 12-28-2016 14:51-0400 Heart rate 90 /min Wanda Lopez RN [employer].; [facility]. Comment on above: Pattern: Regular 12-28-2016 14:51-0400 Systolic blood pressure 113 mm[Hg] Wanda Lopez RN [employer].; [facility]. Comment on above: Patient Position: Sitting; Cuff Location : Left Arm; Cuff Size: Standard 11-02-2015 13:10-0500 Body height 172.72 cm Sindy Mojgan GENERAL [employer] Work Phone: [facility].; [facility]. 11-02-2015 13:10-0500 Body mass index (BMI) [Ratio] 30.56 kg/m2 Parantezy GENERAL [employer] Work Phone: [facility].; [facility]. 11-02-2015 13:10-0500 Body surface area Derived from formula 2.05 m2 Sindy Mojgan GENERAL [employer] Work Phone: [facility].; [facility]. 11-02-2015 13:10-0500 Body weight 91.17 kg Sindy Mojgan GENERAL [employer] Work Phone: [facility].; [facility]. 11-02-2015 13:10-0500 Diastolic blood pressure 69 mm[Hg] Sindy Mojgan GENERAL [employer] Work Phone: [employer].; [facility]. Comment on above: Patient Position: Sitting; Cuff Location : Left Arm; Cuff Size: Large 11-02-2015 13:10-0500 Heart rate 80 /min Sindy Mojgan GENERAL [employer] Work Phone: [facility].; [facility]. Comment on above: Pattern: Regular 11-02-2015 13:10-0500 Systolic blood pressure 121 mm[Hg] Sindy Mojgan GENERAL [employer] Work Phone: [employer]; [facility]. Comment on above: Patient Position: Sitting; Cuff Location : Left Arm; Cuff Size: Large 09-30-2015 11:54-0500 Body height 172.72 cm Sindy Meloy GENERAL [employer] Work Phone: [facility].; [facility]. 09-30-2015 11:54-0500 Body mass index (BMI) [Ratio] 31.02 kg/m2 Sindyromero Meloy GENERAL [employer] Work Phone: [facility].; [facility]. 09-30-2015 11:54-0500 Body surface area Derived from formula 2.06 m2 Sindy Meloy GENERAL [employer] Work Phone: [facility].; [facility]. 09-30-2015 11:54-0500 Body temperature 98.1 [degF] Sindy Meloy GENERAL [employer] Work Phone: [employer]; [facility]. Comment on above: Method: Tympanic 09-30-2015 11:54-0500 Body weight 92.53 kg Sindy Meloy GENERAL [employer] Work Phone: [facility].; [facility]. 09-30-2015 11:54-0500 Diastolic blood pressure 78 mm[Hg] Sindy Meloy GENERAL [employer] Work Phone: [employer]; [facility]. Comment on above: Patient Position: Sitting; Cuff Location : Left Arm; Cuff Size: Large 09-30-2015 11:54-0500 Heart rate 90 /min Sindy Mojgan GENERAL [employer] Work Phone: [employer]; [facility]. Comment on above: Pattern: Regular 09-30-2015 11:54-0500 Systolic blood pressure 118 mm[Hg] Sindy Mojgan GENERAL [employer] Work Phone: [facility].; [facility]. Comment on above: Patient Position: Sitting; Cuff Location : Left Arm; Cuff Size: Large 03-05-2015 14:05-0400 Body height 172.72 cm Netreasuree Andrew Vess GENERAL [employer] [facility], [employer], [email or web address] 03-05-2015 14:05-0400 Body mass index (BMI) [Ratio] 31.47 kg/m2 Neilee L Vess GENERAL [employer] 03-05-2015 14:05-0400 Body surface area Derived from formula 2.07 m2 Neilee L Vess GENERAL [employer], [email or web address] 03-05-2015 14:05-0400 Body weight 93.9 kg Guadalupee L Vess GENERAL [employer], [email or web address].; [facility]. 03-05-2015 14:05-0400 Diastolic blood pressure 63 mm[Hg] Neilee L Vess GENERAL [employer], [email or web address].; [facility]. Comment on above: Patient Position: Sitting; Cuff Location : Left Arm; Cuff Size: Standard 03-05-2015 14:05-0400 Heart rate 99 /min Guadalupee L Vess GENERAL [employer].; [facility]. Comment on above: Pattern: Regular 03-05-2015 14:05-0400 Systolic blood pressure 104 mm[Hg] Rivkailee L Vess GENERAL [employer], [email or web address].; [facility]. Comment on above: Patient Position: Sitting; Cuff Location : Left Arm; Cuff Size: Standard 12-29-2014 11:39-0400 Body height 175.26 cm [facility] Work Phone: [employer].; [facility]. 12-29-2014 11:39-0400 Body mass index (BMI) [Ratio] 29.98 kg/m2 [facility] Work Phone: [employer].; [facility]. 12-29-2014 11:39-0400 Body surface area Derived from formula 2.08 m2 Sindy Mojgan GENERAL [employer] Work Phone: [employer].; [employer]. 12-29-2014 11:39-0400 Body temperature 98.8 [degF] Sindy Ulrich LPN Work Phone: [facility].; [facility]. Comment on above: Method: Tympanic 12-29-2014 11:39-0400 Body weight 92.08 kg Sindy Ulrich LPN Work Phone: [facility].; [facility]. 12-29-2014 11:39-0400 Diastolic blood pressure 73 mm[Hg] Sindy Ulrich LPN Work Phone: [facility].; [facility]. Comment on above: Patient Position: Sitting; Cuff Location : Left Arm; Cuff Size: Large 12-29-2014 11:39-0400 Heart rate 92 /min Sindy Ulrich LPN Work Phone: [facility].; [facility]. Comment on above: Pattern: Regular 12-29-2014 11:39-0400 Systolic blood pressure 110 mm[Hg] Sindy Ulrich LPN Work Phone: [facility].; [facility]. Comment on above: Patient Position: Sitting; Cuff Location : Left Arm; Cuff Size: Large 09-24-2014 14:50-0500 Body height 175.26 cm Sindy Ulrich LPN Work Phone: [facility].; [facility]. 09-24-2014 14:50-0500 Body mass index (BMI) [Ratio] 31.16 kg/m2 Sindy Ulrich LPN Work Phone: [facility].; [facility]. 09-24-2014 14:50-0500 Body surface area Derived from formula 2.11 m2 Sindy Ulrich GENERAL [employer] Work Phone: [facility].; [facility]. 09-24-2014 14:50-0500 Body temperature 99.2 [degF] Sindy Ulrich LPN Work Phone: [facility].; [facility]. Comment on above: Method: Tympanic 09-24-2014 14:50-0500 Body weight 95.71 kg Sindy Mojgan GENERAL [employer] Work Phone: [employer].; [facility]. 09-24-2014 14:50-0500 Diastolic blood pressure 79 mm[Hg] Sindy Mojgan GENERAL [employer] Work Phone: [employer].; [facility]. Comment on above: Patient Position: Sitting; Cuff Location : Left Arm; Cuff Size: Standard 09-24-2014 14:50-0500 Heart rate 94 /min Sindy Mojgan GENERAL [employer] Work Phone: [employer].; [facility]. Comment on above: Pattern: Regular 09-24-2014 14:50-0500 Systolic blood pressure 130 mm[Hg] Sindy Mojgan GENERAL [employer] Work Phone: [employer].; [facility]. Comment on above: Patient Position: Sitting; Cuff Location : Left Arm; Cuff Size: Standard 08-21-2013 10:05-0500 Body height 175.26 cm Sindy Mojgan GENERAL [employer] Work Phone: [employer].; [facility]. 08-21-2013 10:05-0500 Body mass index (BMI) [Ratio] 30.72 kg/m2 Sindy Mojgan GENERAL [employer] Work Phone: [employer].; [employer]. 08-21-2013 10:05-0500 Body surface area Derived from formula 2.1 m2 Sindy Mojgan GENERAL [employer] Work Phone: [employer].; [facility]. 08-21-2013 10:05-0500 Body weight 94.35 kg Sindy Mojgan GENERAL [employer] Work Phone: [employer].; [facility]. 08-21-2013 10:05-0500 Diastolic blood pressure 74 mm[Hg] Sindy Mojgan GENERAL [employer] Work Phone: [place] [employer].; [facility]. Comment on above: Patient Position: Sitting; Cuff Location : Left Arm; Cuff Size: Standard 08-21-2013 10:05-0500 Heart rate 74 /min Sindy Ulrich [employer]AL [employer] Work Phone: [place] [employer].; [facility]. Comment on above: Pattern: Regular 08-21-2013 10:05-0500 Systolic blood pressure 105 mm[Hg] Sindy Ulrich GENERAL [employer] Work Phone: [employer] [employer].; [facility]. Comment on above: Patient Position: Sitting; Cuff Location : Left Arm; Cuff Size: Standard 05-29-2013 13:04-0400 Body height 172.72 cm Wanda Lopez RN [employer].; [facility]. 05-29-2013 13:04-0400 Body mass index (BMI) [Ratio] 31.61 kg/m2 Wanda Lopez RN [employer].; [facility]. 05-29-2013 13:04-0400 Body surface area Derived from formula 2.08 m2 Wanda Lopez RN [employer].; [facility]. 05-29-2013 13:04-0400 Body temperature 97.5 [degF] Wanda Lopez RN [employer].; [facility]. Comment on above: Method: Tympanic 05-29-2013 13:04-0400 Body weight 94.3 kg Wanda Lopez RN [employer] [employer].; [facility]. 05-29-2013 13:04-0400 Diastolic blood pressure 75 mm[Hg] Wanda Lopez RN [employer].; [facility]. Comment on above: Patient Position: Sitting; Cuff Location : Left Arm; Cuff Size: Standard 05-29-2013 13:04-0400 Heart rate 75 /min Wanda Lopez RN [employer].; [facility]. Comment on above: Pattern: Regular 05-29-2013 13:04-0400 Systolic blood pressure 137 mm[Hg] Wanda Lopez RN [place] [employer] [facility], [email or web address] [facility]. Comment on above: Patient Position: Sitting; Cuff Location : Left Arm; Cuff Size: Standard 09-04-2012 13:30-0500 Body height 172.72 cm Neilee L Vess GENERAL [employer] [place] [employer] [facility], [employer] 09-04-2012 13:30-0500 Body mass index (BMI) [Ratio] 31.93 kg/m2 Neilee L Vess GENERAL [employer] [place] [employer] [facility], [employer] 09-04-2012 13:30-0500 Body surface area Derived from formula 2.09 m2 Neilee L Vess GENERAL [employer], [email or web address] 09-04-2012 13:30-0500 Body temperature 97.5 [degF] Neilee L Vess [employer]AL [employer] [place] [employer], [email or web address].; [facility]. Comment on above: Method: Tympanic 09-04-2012 13:30-0500 Body weight 95.26 kg Neilee L Vess [employer]AL [employer] [place] [employer], [email or web address] 08-30-2012 14:31-0500 Body height 172.72 cm Charlotte Mitchell [employer]AL [employer] [place] [employer], [email or web address] 08-30-2012 14:31-0500 Body mass index (BMI) [Ratio] 31.78 kg/m2 Charlotte Glasgowmore [employer]AL [employer] [place] [employer], [email or web address] 08-30-2012 14:31-0500 Body surface area Derived from formula 2.08 m2 Charlotte Mitchell GENERAL [employer] [place] [employer], [facility].; [facility]. 08-30-2012 14:31-0500 Body weight 94.8 kg Charlotte Rosalia Mitchell GENERAL [employer], [email or web address].; [employer]. 08-30-2012 14:31-0500 Diastolic blood pressure 65 mm[Hg] Charlotte Mitchell GENERAL [employer] [facility]. Comment on above: Patient Position: Sitting; Cuff Location : Left Arm; Cuff Size: Standard 08-30-2012 14:31-0500 Heart rate 83 /min Charlotte Mitchell [employer]AL [employer].; [facility]. Comment on above: Pattern: Regular 08-30-2012 14:31-0500 Systolic blood pressure 119 mm[Hg] Charlotte Mitchell LPN [employer] [employer] [facility]. Comment on above: Patient Position: Sitting; Cuff Location : Left Arm; Cuff Size: Standard 08-06-2012 13:02-0500 Body height 172.72 cm Sindy Ulrich LPN Work Phone: [employer].; [facility]. 08-06-2012 13:02-0500 Body mass index (BMI) [Ratio] 31.78 kg/m2 Sindy Ulrich [employer] Work Phone: [employer].; [facility]. 08-06-2012 13:02-0500 Body surface area Derived from formula 2.08 m2 Sindy Mojgan GENERAL [employer] Work Phone: [employer].; [facility]. 08-06-2012 13:02-0500 Body temperature 97.5 [degF] Sindy Ulrich LPN Work Phone: [employer].; [facility]. Comment on above: Method: Tympanic 08-06-2012 13:02-0500 Body weight 94.8 kg Sindy Ulrich LPN Work Phone: [employer].; [facility]. 08-06-2012 13:02-0500 Diastolic blood pressure 78 mm[Hg] Sindy Ulrich LPN Work Phone: [employer].; [facility]. Comment on above: Patient Position: Sitting; Cuff Location : Left Arm; Cuff Size: Standard 08-06-2012 13:02-0500 Heart rate 87 /min Sindy Ulrich LPN Work Phone: [employer].; [facility]. Comment on above: Pattern: Regular 08-06-2012 13:02-0500 Systolic blood pressure 130 mm[Hg] Sindy Ulrich LPN Work Phone: [facility] [employer]; [facility]. Comment on above: Patient Position: Sitting; Cuff Location : Left Arm; Cuff Size: Standard 06-12-2012 14:40-0400 Body height 172.72 cm Jessica Redding Hoffmann PA-C Work Phone: [employer]; [employer]. 06-12-2012 14:40-0400 Body mass index (BMI) [Ratio] 31.47 kg/m2 Jessica Redding Hoffmann PA-C Work Phone: [employer].; [employer]. 06-12-2012 14:40-0400 Body surface area Derived from formula 2.07 m2 Jessica Redding Hoffmann PA-C Work Phone: [employer]; [facility]. 06-12-2012 14:40-0400 Body temperature 100 [degF] Jessica Redding Hoffmann PA-C Work Phone: [employer].; [facility]. Comment on above: Method: Tympanic 06-12-2012 14:40-0400 Body weight 93.9 kg Jessica Redding Hoffmann PA-C Work Phone: [employer].; [facility]. 06-12-2012 14:40-0400 Diastolic blood pressure 76 mm[Hg] Jessica Redding Hoffmann PA-C Work Phone: [employer].; [facility]. Comment on above: Patient Position: Sitting; Cuff Location : Right Arm; Cuff Size: Standard 06-12-2012 14:40-0400 Heart rate 98 /min Jessica Redding Hoffmann PA-C Work Phone: [employer]; [facility]. Comment on above: Pattern: Regular 06-12-2012 14:40-0400 Inhaled oxygen concentration 20 % Jessica Miladis Hoffmann PA-C Work Phone: [employer].; [facility]. Comment on above: Room air 06-12-2012 14:40-0400 Inhaled oxygen concentration 21 % Jessica Miladis Hoffmann PA-C Work Phone: [employer].; [facility]. 06-12-2012 14:40-0400 SaO2% (BldA) [Mass fraction] 97 % Jessica Miladis Hoffmann PA-C Work Phone: [employer].; [facility]. 06-12-2012 14:40-0400 Systolic blood pressure 122 mm[Hg] Jessica Hoffmann PA-C Work Phone: [employer].; [facility]. Comment on above: Patient Position: Sitting; Cuff Location : Right Arm; Cuff Size: Standard 04-26-2012 09:34-0400 Body weight 93.44 kg Neilee L Vess [employer]AL [employer].; [employer]. 04-26-2012 09:34-0400 Diastolic blood pressure 75 mm[Hg] Neilee L Vess [employer]AL [employer].; [facility]. Comment on above: Patient Position: Sitting; Cuff Location : Left Arm; Cuff Size: Standard 04-26-2012 09:34-0400 Heart rate 87 /min Neilee L Vess [employer]AL [employer].; [facility]. Comment on above: Pattern: Regular 04-26-2012 09:34-0400 Systolic blood pressure 119 mm[Hg] Neilee L Vess [employer]AL [employer].; [facility]. Comment on above: Patient Position: Sitting; Cuff Location : Left Arm; Cuff Size: Standard 10-11-2011 10:35-0500 Body height 172.72 cm Nohemi Lemus MD Work Phone: [employer].; [facility]. 10-11-2011 10:35-0500 Body mass index (BMI) [Ratio] 31.32 kg/m2 Nohemi Lemus MD Work Phone: [employer]; [facility]. 10-11-2011 10:35-0500 Body surface area Derived from formula 2.07 m2 Nohemi Lemus MD Work Phone: [employer]; [facility]. 10-11-2011 10:35-0500 Body temperature 97.3 [degF] Nohemi Lemus MD Work Phone: [employer]; [facility]. Comment on above: Method: Tympanic 10-11-2011 10:35-0500 Body weight 93.44 kg Nohemi Lemus MD Work Phone: [employer]; [facility]. 10-11-2011 10:35-0500 Diastolic blood pressure 90 mm[Hg] Nohemi Lemus MD Work Phone: [employer]; [facility]. Comment on above: Patient Position: Sitting; Cuff Location : Left Arm; Cuff Size: Standard 10-11-2011 10:35-0500 Heart rate 84 /min Nohemi Lemus MD Work Phone: [employer]; [facility]. Comment on above: Pattern: Regular 10-11-2011 10:35-0500 Systolic blood pressure 141 mm[Hg] Nohemi Lemus MD Work Phone: [employer]; [facility]. Comment on above: Patient Position: Sitting; Cuff Location : Left Arm; Cuff Size: Standard 06-09-2011 14:35-0400 Body weight 93.44 kg Sarah Starks LPN [employer].; [facility]. 06-09-2011 14:35-0400 Diastolic blood pressure 82 mm[Hg] Sarah Starks LPN [employer].; [facility]. Comment on above: Patient Position: Sitting; Cuff Location : Left Arm; Cuff Size: Standard 06-09-2011 14:35-0400 Heart rate 79 /min Sarah Starks LPN [employer].; [employer] Comment on above: Pattern: Regular 06-09-2011 14:35-0400 Inhaled oxygen concentration 20 % Sarah Galavizomari [facility], [facility].; [employer]. Comment on above: Room air 06-09-2011 14:35-0400 Inhaled oxygen concentration 21 % Sarah Weomari [facility], [facility].; [employer]. 06-09-2011 14:35-0400 SaO2% (BldA) [Mass fraction] 98 % Sarah Weomari [facility] [employer] [facility], [facility].; [employer]. 06-09-2011 14:35-0400 Systolic blood pressure 130 mm[Hg] Sarahfunmilayo Starks [facility] [employer] [facility], [facility].; [employer]. Comment on above: Patient Position: Sitting; Cuff Location : Left Arm; Cuff Size: Standard 05-19-2011 10:04-0400 Body height 172.72 cm Guadalupee L Vess [facility], [facility].; [employer], [email or web address] 05-19-2011 10:04-0400 Body mass index (BMI) [Ratio] 31.78 kg/m2 Mtilee L Vess [facility] [employer] [facility], [facility].; [employer], [email or web address] 05-19-2011 10:04-0400 Body surface area Derived from formula 2.08 m2 Mttreasuree L V[address] [facility] [employer] [facility], [facility].; [employer], [facility]. 05-19-2011 10:04-0400 Body weight 94.8 kg Mttreasuree L Vess [employer] [place] [employer] [facility], [facility].; [employer], [email or web address] 05-19-2011 10:04-0400 Diastolic blood pressure 77 mm[Hg] Neilee L Vess [facility] [employer] [facility], [facility].; [employer]. Comment on above: Patient Position: Sitting; Cuff Location : Left Arm; Cuff Size: Standard 05-19-2011 10:04-0400 Heart rate 77 /min Neilee L Vess [employer] [place] [employer] [facility], [employer]. Comment on above: Pattern: Regular 05-19-2011 10:04-0400 Systolic blood pressure 126 mm[Hg] Neilee L Vess [employer] [facility], [employer] Comment on above: Patient Position: Sitting; Cuff Location : Left Arm; Cuff Size: Standard 12-10-2010 13:59-0400 Body weight 91.63 kg Cindy John [employer] [facility], Inc.; [employer] 12-10-2010 13:59-0400 Diastolic blood pressure 71 mm[Hg] Cindy Monklabach GENERAL [employer] SUPERVISOR YARD [place] [employer] [facility], [employer].; [employer] Comment on above: Patient Position: Sitting; Cuff Location : Left Arm; Cuff Size: Standard 12-10-2010 13:59-0400 Heart rate 85 /min Cindy Monklabach [employer]AL [employer] SUPERVIS[employer] Y[employer] [place] [employer] [facility], Inc[employer] Comment on above: Pattern: Regular 12-10-2010 13:59-0400 Systolic blood pressure 127 mm[Hg] Cindy Monklabach GENERAL [employer] SUPER[employer] Y[employer] [place] [employer] Comment on above: Patient Position: Sitting; Cuff Location : Left Arm; Cuff Size: Standard 11-09-2010 17:17-0500 Body height 175.26 cm Susana Han Khan GENERAL CAR SUPERVISOR YARD [employer] [facility], [employer] 11-09-2010 17:17-0500 Body mass index (BMI) [Ratio] 30.54 kg/m2 Susana Han Bill GENERAL CAR SUPERVISOR [employer] 11-09-2010 17:17-0500 Body surface area Derived from formula 2.1 m2 Susana Han GallegoMonroe GENERAL CAR SUPERVISOR YARD [employer], [employer] 11-09-2010 17:17-0500 Body temperature 98 [degF] Susana C Bill GENERAL CAR SUPERVISOR Y[employer], [employer], [email or web address] Comment on above: Method: Tympanic 11-09-2010 17:17-0500 Body weight 93.8 kg Susana Han Khan GENERAL [employer] SUPER[employer]OR [employer] 11-09-2010 17:17-0500 Diastolic blood pressure 79 mm[Hg] Susana C Bill GENERAL CAR SUPERVISOR Y[employer] [facility]. Comment on above: Patient Position: Sitting; Cuff Location : Right Arm; Cuff Size: Large 11-09-2010 17:17-0500 Heart rate 83 /min Susana Khan GENERAL CAR SUPERVISOR YARD [facility], [email or web address]. Comment on above: Pattern: Regular 11-09-2010 17:17-0500 Systolic blood pressure 136 mm[Hg] Susana Han Khan GENERAL CAR SUPERVISOR YARD [facility].; [employer]. Comment on above: Patient Position: Sitting; Cuff Location : Right Arm; Cuff Size: Large 10-25-2010 14:33-0500 Body temperature 96.7 [degF] Cindy John [facility].; [employer]. Comment on above: Method: Tympanic 10-25-2010 14:33-0500 Body weight 94.[address] [facility] [employer] [facility].; [employer]. 10-25-2010 14:33-0500 Diastolic blood pressure 72 mm[Hg] Cindy John GENERAL CAR SUPERVISOR YARD [facility].; [employer]. Comment on above: Patient Position: Sitting; Cuff Location : Left Arm; Cuff Size: Standard 10-25-2010 14:33-0500 Heart rate 85 /min Cindy John GENERAL CAR SUPERVISOR YARD [facility].; [employer]. Comment on above: Pattern: Regular 10-25-2010 14:33-0500 Systolic blood pressure 125 mm[Hg] Cindy John GENERAL CAR SUPERVISOR YARD [facility].; [employer]. Comment on above: Patient Position: Sitting; Cuff Location : Left Arm; Cuff Size: Standard 06-25-2010 13:41-0400 Body height 175.26 cm [facility] Work Phone: [place] [employer] [facility].; [employer]. 06-25-2010 13:41-0400 Body mass index (BMI) [Ratio] 31.01 kg/m2 [facility] Work Phone: [place] [employer] [facility].; [employer]. 06-25-2010 13:41-0400 Body surface area Derived from formula 2.11 m2 Sindy Mojgan LPN Work Phone: [employer].; [employer]. 06-25-2010 13:41-0400 Body weight 95.26 kg Sindy Ulrich LPN Work Phone: [employer].; [employer]. 06-25-2010 13:41-0400 Diastolic blood pressure 74 mm[Hg] Sindy Ulrich LPN Work Phone: [employer].; [employer]. Comment on above: Patient Position: Sitting; Cuff Location : Right Arm; Cuff Size: Large 06-25-2010 13:41-0400 Heart rate 84 /min Sindy Mojgan GENERAL CAR SUPERVISOR YARD Work Phone: [employer]; [employer]. Comment on above: Pattern: Regular 06-25-2010 13:41-0400 Systolic blood pressure 125 mm[Hg] Sindy Ulrich LPN Work Phone: [employer].; [employer]. Comment on above: Patient Position: Sitting; Cuff Location : Right Arm; Cuff Size: Large Encounters Encounter Date Encounter Type Care Provider Facility Start: 07-30-2025 End: 07-30-2025 ambulatory [facility] Start: 06-04-2025 End: 06-04-[address] Nohemi Lemus MD Work Phone: -[facility]patient [facility] Start: 06-04-2025 End: 06-04-2025 Patient encounter procedure Tina Gasper AUTOM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-C -[facility]patient [facility]ometry Work Phone: Start: 06-04-2025 End: 06-04-2025 Patient encounter procedure Tina Gasper AUTOM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-C -[facility] Work Phone: Start: 06-04-2025 End: 06-04-[address] Nohemi Lemus MD Work Phone: -[facility] Start: 06-04-2025 End: 06-04-2025 ambulatory Tina John AUTOM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 Facility:[facility] Start: 05-13-2025 End: 05-14-2025 Nohemi Lemus MD Work Phone: [employer] [facility] Start: 05-13-2025 End: 05-13-2025 ambulatory [facility] Start: 04-28-2025 End: 04-28-2025 Nohemi Lemus MD Work Phone: [employer] [facility] Start: 04-02-2025 End: 04-07-2025 Nohemi Lemus MD Work Phone: [employer] [facility] Start: 01-16-2025 End: 01-17-2025 ambulatory THERESA LITTLE [facility] Start: 12-30-2024 End: 12-30-2024 Office outpatient visit 25 minutes Nohemi Lemus MD Work Phone: [employer] [facility] Start: 12-30-2024 Nohemi mcneil MD Work Phone: [employer] [facility] Start: 12-24-2024 End: 12-24-2024 Nohemi Lemus MD Work Phone: [employer] [facility] Start: 12-20-2024 End: 12-25-2024 ambulatory [facility] Start: 12-18-2024 End: 12-18-[address] Nohemi Lemus MD Work Phone: [facility] Work Phone: Start: 12-18-2024 End: 12-18-2024 Patient encounter procedure Tina John AUTOM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-C -Cat Scan, [facility] Work Phone: Start: 12-18-2024 End: 12-18-2024 ambulatory Tina John AUTOM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 Facility:[facility] Start: 12-05-2024 End: 12-05-2024 Patient encounter procedure 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 Start: 12-05-2024 End: 12-05-2024 ambulatory Nohemi Vaccariello [place] Start: 12-05-[address] Supriya Frost MD -[facility] Start: 11-29-2024 End: 11-29-2024 Patient encounter procedure Danielle CASTILLO -[facility] Work Phone: Start: 11-29-2024 End: 11-29-2024 ambulatory Nohemi Vaccariello [place] Start: 11-14-2024 End: 11-14-2024 Nohemi Lemus MD Work Phone: [employer] Start: 11-12-2024 End: 11-12-2024 ambulatory [facility] Start: 11-06-2024 End: 11-06-2024 Office outpatient visit 15 minutes Nohemi Lemus MD Work Phone: [employer] Start: 11-06-2024 Nohemi mcneil MD Work Phone: [employer] Start: 09-03-2024 End: 09-03-2024 ambulatory TINA Oleg [facility] Start: 09-02-2024 End: 09-02-2024 Patient encounter procedure Tina John [facility] Work Phone: Start: 09-02-2024 End: 09-02-2024 ambulatory Nohemi Vaccdon [place] Start: 08-19-2024 End: 08-19-2024 Office outpatient visit 15 minutes Nohemi Lemus MD Work Phone: [employer] Start: 08-19-2024 Nohemi mcneil MD Work Phone: [employer] Start: 05-29-2024 End: 05-29-2024 Patient encounter status Nohemi Lemus MD Work Phone: [employer]; [employer] Start: 05-29-2024 End: 05-29-2024 Nohemi Lemus MD Work Phone: [facility]. Start: 05-29-2024 Patient encounter status Sindy Ulrich LPN Work Phone: [employer]; [employer]. Start: 05-29-2024 Nohemi mcneil MD Work Phone: [employer]. Start: 04-18-2024 End: 04-18-2024 Nohemi Lemus MD Work Phone: [employer]. Start: 02-07-2024 End: 02-07-2024 Office outpatient visit 10 minutes Nohemi Lemus MD Work Phone: [employer]. Start: 02-07-2024 Nohemi mcneil MD Work Phone: [employer]. Start: 10-23-2023 End: 10-23-2023 Nohemi Lemus MD Work Phone: [employer] Start: 10-05-2023 End: 10-05-2023 Nohemi Lemus MD Work Phone: [employer]. Start: 10-04-2023 End: 10-04-2023 Nohemi Lemus MD Work Phone: [employer]. Start: 09-14-2023 End: 09-15-2023 Orders Nohemi Lemus MD Work Phone: [employer]. Start: 09-14-2023 End: 09-15-2023 Nohemi Lemus MD Work Phone: [employer]. Start: 08-25-2023 End: 08-25-2023 Patient encounter procedure Nohemi Lemus MD Work Phone: [employer] Start: 08-25-2023 End: 08-25-2023 Nohemi Lemus MD Work Phone: [employer] Start: 07-19-2023 End: 07-19-2023 Office outpatient visit 15 minutes [facility]i Lemus MD [facility] Start: 07-05-2023 End: 07-05-2023 Patient encounter procedure Nohemi Lemus MD Work [facility]: [facility] Start: 07-05-2023 End: 07-05-2023 Patient encounter status Nohemi Lemus MD Work Phone: [facility]; [facility] Start: 07-05-2023 End: 07-05-2023 Nohemi Lemus MD Work Phone: [facility] Start: 05-26-2023 End: 05-26-[address] Nohemi Lemus Work Phone: [facility] Work Phone: Start: 05-26-2023 End: 05-26-[address] Nohemi Lemus Work Phone: [facility]-Outpatient Breast Imaging Work Phone: Start: 05-24-2023 End: 05-24-[address] Nohemi Lemus Work Phone: [facility] Work Phone: Start: 03-27-[address] Nohemi Lemus Work Phone: [facility] Start: 03-27-2023 End: 03-27-[address] Nohemi Lemus Work Phone: [facility] Work Phone: Start: 01-12-2023 End: 01-12-[address] Nohemi Lemus Work Phone: [facility] Work Phone: Start: 01-12-2023 End: 01-12-[address] Nohemi Lemus Work Phone: [facility]-Outpatient Bone Densitometry Start: 01-05-2023 End: 01-05-2023 Patient encounter procedure Nohemi Lemus MD Work Phone: [facility] Start: 01-05-2023 End: 01-05-2023 Nohemi Lemus MD Work Phone: [employer] Start: 12-28-2022 End: 12-28-[address] Nohemi Lemus Work Phone: [facility] Start: 12-27-2022 End: 12-27-[address] Nohemi Lemus Work Phone: [facility] Start: 12-12-2022 End: 12-12-[address] Nohemi Lemus Work Phone: [facility] Start: 10-13-2022 End: 10-13-2022 Phone Encounter Nohemi Lemus MD Work Phone: [facility] Start: 10-13-2022 End: 10-13-2022 Nohemi Lemus MD Work Phone: [employer] Start: 10-07-2022 End: 10-07-2022 ambulatory NOHEMI GRAHAM MD Facility:[facility] Start: 09-30-2022 End: 09-30-2022 Orders Nohemi Lemus MD Work Phone: [facility] Start: 09-30-2022 End: 09-30-2022 Nohemi Lemus MD Work Phone: [employer] Start: 09-23-2022 End: 09-23-2022 Orders Nohemi Lemus MD Work Phone: [employer] Start: 09-23-2022 End: 09-23-2022 Nohemi Lemus MD Work Phone: [employer]. Start: 09-15-2022 End: 09-15-2022 Orders Nohemi Lemus MD Work Phone: [employer]. Start: 09-15-2022 End: 09-15-2022 Nohemi Lemus MD Work Phone: [employer] Start: 09-14-2022 End: 09-14-2022 Orders Nohemi Lemus MD Work Phone: [employer] Start: 09-14-2022 End: 09-14-2022 Nohemi Lemus MD Work Phone: [employer] Start: 07-11-2022 End: 07-11-2022 Patient encounter procedure Nohemi Lemus MD Work Phone: [employer] Start: 07-11-2022 End: 07-11-2022 Patient encounter status Nohemi Lemus MD Work Phone: [employer]; [facility]. Start: 07-11-2022 End: 07-11-2022 Nohemi Lemus MD Work Phone: [employer] Start: 07-04-2022 End: 07-06-2022 Orders Nohemi Lemus MD Work Phone: [employer] Start: 07-04-2022 End: 07-06-2022 Nohemi Lemus MD Work Phone: [employer] Start: 05-25-2022 End: 05-25-2022 Orders Nohemi Lemus MD Work Phone: [employer] Start: 05-25-2022 End: 05-25-2022 Nohemi Lemus MD Work Phone: [employer] Start: 04-19-2022 End: 04-19-2022 Office outpatient visit 15 minutes Nohemi Lemus MD Work Phone: [employer] Start: 03-24-2022 End: 03-24-2022 Office outpatient visit 15 minutes Nohemi Lemus MD Work Phone: [employer] Start: 03-23-2022 End: 03-23-2022 Orders Nohemi Lemus MD Work Phone: [employer] Start: 03-23-2022 End: 03-23-2022 Nohemi Lemus MD Work Phone: [employer] Start: 03-14-2022 End: 03-14-2022 Orders oNhemi Lemus MD Work Phone: [employer] Start: 03-14-2022 End: 03-14-2022 Nohemi Lemus MD Work Phone: [employer] Start: 03-10-2022 End: 03-10-2022 Office outpatient visit 15 minutes Nohemi Lemus MD Work Phone: [employer] Start: 02-09-2022 End: 02-09-2022 Orders Nohemi Lemus MD Work Phone: [employer] Start: 02-09-2022 End: 02-09-2022 Nohemi Lemus MD Work Phone: [employer] Start: 11-12-2021 End: 11-12-2021 Patient encounter procedure Nohemi Lemus MD Work Phone: [employer] Start: 11-12-2021 End: 11-12-2021 Nohemi Lemus MD Work Phone: [employer] Start: 07-07-2021 End: 07-07-2021 Patient encounter procedure Nohemi Lemus MD Work Phone: [employer] Start: 07-07-2021 End: 07-07-2021 Patient encounter status Nohemi Lemus MD Work Phone: [employer]; [employer] Start: 07-07-2021 End: 07-07-2021 Nohemi Lemus MD Work Phone: [facility]. Start: 03-23-2021 End: 03-23-2021 Medication Nohemi Lemus MD Work Phone: [facility]. Start: 03-23-2021 End: 03-23-2021 Nohemi Lemus MD Work Phone: [employer] Start: 02-24-2021 End: 02-24-2021 Office outpatient visit 15 minutes Nohemi Lemus MD Work Phone: [employer] Start: 01-13-2021 End: 01-13-2021 Historical Summary Nohemi Lemus MD Work Phone: [employer] Start: 01-13-2021 End: 01-13-2021 Nohemi Lemus MD Work Phone: [employer] Start: 11-12-2020 End: 11-12-2020 Patient encounter procedure Norma Alyssa GENERAL [employer] SUPER[employer]OR [employer] Start: 11-12-2020 End: 11-12-2020 Nohemi Lemus MD Work Phone: [employer] Start: 05-27-2020 End: 05-27-2020 Orders Nohemi Lemus MD Work Phone: [employer] Start: 05-27-2020 End: 05-27-2020 Nohemi Lemus MD Work Phone: [employer] Start: 05-15-2020 End: 05-15-2020 Patient encounter procedure Nohemi Lemus MD Work Phone: [employer] Start: 05-15-2020 End: 05-15-2020 Nohemi Lemus MD Work Phone: [employer] Start: 05-11-2020 End: 05-11-2020 Patient encounter procedure Nohemi Lemus MD Work Phone: [employer] Start: 05-11-2020 End: 05-11-2020 Patient encounter status Nohemi Lemus MD Work Phone: [employer].; [facility]. Start: 05-11-2020 End: 05-11-2020 Nohemi Lemus MD Work Phone: [employer] Start: 05-05-2020 End: 05-06-2020 Orders Nohemi Lemus MD Work Phone: [employer]. Start: 05-05-2020 End: 05-06-2020 Nohemi Lemus MD Work Phone: [facility]. Start: 01-14-2019 End: 01-14-2019 Orders Nohemi Lemus MD Work Phone: [employer] Start: 01-14-2019 End: 01-14-2019 Nohemi Lemus MD Work Phone: [employer] Start: 01-02-2019 End: 01-02-2019 Patient encounter procedure Nohemi Lemus MD Work Phone: [employer]. Start: 01-02-2019 End: 01-02-2019 Patient encounter status Sindy Ulrich LPN Work Phone: [employer].; [facility]. Start: 01-02-2019 End: 01-02-2019 Physical examination Sindy Ulrich LPN Work Phone: [employer]; [employer]. Start: 01-02-2019 End: 01-02-2019 Nohemi Lemus MD Work Phone: [employer] Start: 11-26-2018 End: 11-26-2018 Patient encounter procedure Nohemi Lemus MD Work Phone: [employer] Start: 11-26-2018 End: 11-26-2018 Nohemi Lemus MD Work Phone: [employer] Start: 08-14-2018 End: 08-14-2018 Orders Nohemi Lemus MD Work Phone: [facility] [employer]. Start: 08-14-2018 End: 08-14-2018 Nohemi Lemus MD Work Phone: [employer]. Start: 01-23-2018 End: 01-23-2018 Telephone follow-up Nohemi Lemus MD Work Phone: [facility]. Start: 01-23-2018 End: 01-23-2018 Nohemi Lemus MD Work Phone: [facility]. Start: 12-15-2017 End: 12-15-2017 Medication Nohemi Lemus MD Work Phone: [facility]. Start: 12-15-2017 End: 12-15-2017 Nohemi Lemus MD Work Phone: [employer]. Start: 11-03-2017 End: 11-03-2017 Telephone follow-up Nohemi Lemus MD Work Phone: [employer]. Start: 11-03-2017 End: 11-03-2017 Nohemi Lemus MD Work Phone: [employer]. Start: 11-03-2017 End: 11-03-2017 Patient encounter procedure Nohemi Lemus MD Work Phone: [employer]. Start: 11-03-2017 End: 11-03-2017 Nohemi Lemus MD Work Phone: [employer]. Start: 10-30-2017 End: 10-30-2017 Telephone follow-up Nohemi Lemus MD Work Phone: [employer]. Start: 10-30-2017 End: 10-30-2017 Nohemi Lemus MD Work Phone: [facility]. Start: 10-30-2017 End: 10-30-2017 Historical Summary Nohemi Lemus MD Work Phone: [facility]. Start: 10-30-2017 End: 10-30-2017 Nohemi Lemus MD Work Phone: [employer] Start: 10-26-2017 End: 10-26-2017 Patient encounter procedure Nohemi Lemus MD Work Phone: [employer] Start: 10-26-2017 End: 10-26-2017 Nohemi Lemus MD Work Phone: [employer] Start: 08-31-2017 End: 08-31-2017 Patient encounter procedure Nohemi Lemus MD Work Phone: [facility]. Start: 08-31-2017 End: 08-31-2017 Nohemi Lemus MD Work Phone: [facility]. Start: 12-28-2016 End: 12-28-2016 Nursing evaluation of patient and report Nohemi Lemus MD Work Phone: [employer] Start: 12-28-2016 End: 12-28-2016 Nohemi Lemus MD Work Phone: [employer] Start: 09-19-2016 End: 09-19-2016 Historical Summary Nohemi Lemus MD Work Phone: [facility]. Start: 09-19-2016 End: 09-19-2016 Nohemi Lemus MD Work Phone: [employer] Start: 06-14-2016 End: 06-15-2016 Orders Nohemi Lemus MD Work Phone: [facility]. Start: 06-14-2016 End: 06-15-2016 Nohemi Lemus MD Work Phone: [employer] Start: 11-02-2015 End: 11-02-2015 Patient encounter procedure Nohemi Lemus MD Work Phone: [employer] Start: 11-02-2015 End: 11-02-2015 Nohemi Lemus MD Work Phone: [employer] Start: 10-23-2015 End: 10-23-2015 Home visit Nohemi Lemus MD Work Phone: [employer] Start: 10-23-2015 End: 10-23-2015 Nohemi Lemus MD Work Phone: [employer] Start: 09-30-2015 End: 09-30-2015 Patient encounter procedure Nohemi Lemus MD Work Phone: [employer] Start: 09-30-2015 End: 09-30-2015 Nohemi Lemus MD Work Phone: [employer] Start: 03-05-2015 End: 03-05-2015 Manual pelvic examination Nohemi Lemus MD Work Phone: [employer]; [facility]. Start: 03-05-2015 End: 03-05-2015 Patient encounter procedure Nohemi Lemus MD Work Phone: [employer] Start: 03-05-2015 End: 03-05-2015 Routine gynecological examination Nohemi Lemus MD Work Phone: [employer]; [employer]. Start: 03-05-2015 End: 03-05-2015 Nohemi Lemus MD Work Phone: [employer] Start: 01-01-2015 End: 01-01-2015 Orders Nohemi Lemus MD Work Phone: [employer] Start: 01-01-2015 End: 01-01-2015 Nohemi Lemus MD Work Phone: [employer] Start: 12-29-2014 End: 12-29-2014 Patient encounter procedure Nohemi Lemus MD Work Phone: [employer] Start: 12-29-2014 End: 12-29-2014 Nohemi Lemus MD Work Phone: [employer] Start: 12-08-2014 End: 12-08-2014 Orders Nohemi Lemus MD Work Phone: [employer] Start: 12-08-2014 End: 12-08-2014 Nohemi Lemus MD Work Phone: [employer] Start: 09-24-2014 End: 09-24-2014 Patient encounter procedure Nohemi Lemus MD Work Phone: [employer] Start: 09-24-2014 End: 09-24-2014 Nohemi Lemus MD Work Phone: [facility]. Start: 08-27-2013 End: 08-27-2013 Orders Nohemi Lemus MD Work Phone: [facility]. Start: 08-27-2013 End: 08-27-2013 Nohemi Lemus MD Work Phone: [facility]. Start: 08-21-2013 End: 08-21-2013 Patient encounter procedure Nohemi Lemus MD Work Phone: [facility]. Start: 08-21-2013 End: 08-21-2013 Routine gynecological examination Sindy Ulrich ASHER Work Phone: [employer]; [employer]. Start: 08-21-2013 End: 08-21-2013 Nohemi Lemus MD Work Phone: [facility]. Start: 08-13-2013 End: 08-14-2013 Orders Nohemi Lemus MD Work Phone: [facility]. Start: 08-13-2013 End: 08-14-2013 Nohemi Lemus MD Work Phone: [employer] Start: 07-31-2013 End: 07-31-2013 Orders Nohemi Lemus MD Work Phone: [facility]. Start: 07-31-2013 End: 07-31-2013 Nohemi Lemus MD Work Phone: [employer] Start: 07-24-2013 End: 07-24-2013 Orders Nohemi Lemus MD Work Phone: [employer] Start: 07-24-2013 End: 07-24-2013 Nohemi Lemus MD Work Phone: [employer] Start: 05-29-2013 End: 05-29-2013 Patient encounter procedure Nohemi Lemus MD Work Phone: [employer] Start: 05-29-2013 End: 05-29-2013 Nohemi Lemus MD Work Phone: [employer] Start: 09-04-2012 End: 09-04-2012 Patient encounter procedure Nohemi Lemus MD Work Phone: [employer] Start: 09-04-2012 End: 09-04-2012 Nohemi Lemus MD Work Phone: [employer] Start: 08-30-2012 End: 08-30-2012 Patient encounter procedure Nohemi Lemus MD Work Phone: [employer] Start: 08-30-2012 End: 08-30-2012 Nohemi Lemus MD Work Phone: [employer] Start: 08-06-2012 End: 08-06-2012 Patient encounter procedure Nohemi Lemus MD Work Phone: [employer] Start: 08-06-2012 End: 08-06-2012 Nohemi Lemus MD Work Phone: [employer] Start: 07-16-2012 End: 07-16-2012 Stan Lemus MD Work Phone: [employer] Start: 07-16-2012 End: 07-16-2012 Nohemi Lemus MD Work Phone: [employer] Start: 06-12-2012 End: 06-12-2012 Patient encounter procedure Nohemi Lemus MD Work Phone: [employer] Start: 06-12-2012 End: 06-12-2012 Nohemi Lemus MD Work Phone: [employer] Start: 06-04-2012 End: 06-04-2012 Historical Summary Nohemi Lemus MD Work Phone: [employer] Start: 06-04-2012 End: 06-04-2012 Nohemi Lemus MD Work Phone: [employer] Start: 05-03-2012 End: 05-04-2012 Orders Nohemi Lemus MD Work Phone: [facility]. Start: 05-03-2012 End: 05-04-2012 Nohemi Lemus MD Work Phone: [employer] Start: 04-26-2012 End: 04-26-2012 Patient encounter procedure Nohemi Lemus MD Work Phone: [employer] Start: 04-26-2012 End: 04-26-2012 Nohemi Lemus MD Work Phone: [employer] Start: 04-18-2012 End: 04-18-2012 Historical Summary Nohemi Lemus MD Work Phone: [employer] Start: 04-18-2012 End: 04-18-2012 Nohemi Lemus MD Work Phone: [employer] Start: 10-11-2011 End: 10-11-2011 Patient encounter procedure Nohemi Lemus MD Work Phone: [employer] Start: 10-11-2011 End: 10-11-2011 Nohemi Lemus MD Work Phone: [employer] Start: 06-09-2011 End: 06-09-2011 Patient encounter procedure Nohemi Lemus MD Work Phone: [employer] Start: 06-09-2011 End: 06-09-2011 Nohemi Lemus MD Work Phone: [employer] Start: 05-19-2011 End: 05-19-2011 Patient encounter procedure Nohemi Lemus MD Work Phone: [employer] Start: 05-19-2011 End: 05-19-2011 Routine gynecological examination Nohemi Lemus MD Work Phone: [facility]; [facility]. Start: 05-19-2011 End: 05-19-2011 Nohemi Lemus MD Work Phone: [facility] Start: 02-18-2011 End: 02-18-2011 Orders Nohemi Lemus MD Work Phone: [employer]. Start: 02-18-2011 End: 02-18-2011 Nohemi Lemus MD Work Phone: [facility] Start: 12-10-2010 End: 12-10-2010 Patient encounter procedure Nohemi Lemus MD Work Phone: [employer] Start: 12-10-2010 End: 12-10-2010 Nohemi Lemus MD Work Phone: [facility] Start: 11-09-2010 End: 11-09-2010 Patient encounter procedure Nohemi Lemus MD Work Phone: [employer] Start: 11-09-2010 End: 11-09-2010 Nohemi Lemus MD Work Phone: [facility] Start: 10-25-2010 End: 10-25-2010 Patient encounter procedure Nohemi Lemus MD Work Phone: [employer] Start: 10-25-2010 End: 10-25-2010 Nohemi Lemus MD Work Phone: [employer] Start: 09-01-2010 End: 09-01-2010 Medication Nohemi Lemus MD Work Phone: [facility]. Start: 09-01-2010 End: 09-01-2010 Nohemi Lemus MD Work Phone: [employer] Start: 06-25-2010 End: 06-27-2010 Patient encounter procedure Nohemi Lemus MD Work Phone: [employer] Start: 06-25-2010 End: 06-27-2010 Nohemi Lemus MD Work Phone: [facility] Start: 05-05-2010 End: 05-05-2010 Historical Summary Nohemi Lemus MD Work Phone: [facility] Start: 05-05-2010 End: 05-05-2010 Nohemi Lemus MD Work Phone: [facility] Manual pelvic examination Norma Shah LPN [facility].; [facility] Patient encounter procedure Marya Simmons LPN [facility].; [facility] Patient encounter status Norma Shha LP N [facility].; [facility] Patient encounter status Marya TRAVIS [facility].; [facility] Routine gynecologica l examination Norma Shah LPN [facility].; [facility]. Procedures Date Procedure Procedure Detail Performing Clinician Start: 06-04-2025 Screening mammograph y of left breast Dr. Nohemi Lemus MD Work Phone: Start: 06-04-2025 Dual energy X-ray absorptiometry Dr. Nohemi Lemus MD Work Phone: Start: 04-08-2025 End: 04-08-2025 Norma Hancock Start: 11-29-2024 X-ray of lumbosacral spine Dr. Nohemi Lemus MD Work Phone: Start: 11-26-2024 End: 11-26-2024 Nohemi Lemus MD Work Phone: Start: 11-12-2024 End: 11-12-2024 Nohemi Farooq Work Phone: Start: 11-06-2024 End: 11-14-2024 Mri spinal canal lumbar w/o contrast material Nohemi Lemus MD Work Phone: Start: 09-03-2024 End: 09-03-2024 Sindy Mojgan [employer] Work Phone: Start: 06-12-2024 End: 06-12-2024 Echocardiography Nohemi Farooq Work Phone: Start: 06-04-2024 End: 06-04-2024 Sindy Ulrich [employer] Work Phone: Start: 05-29-2024 End: 05-29-2024 Adv care pln/ no alt dcsn mkr docd or refusal Nohemi Lemus MD Work Phone: Start: 05-29-2024 End: 05-29-2024 Body mass index documented Nohemi roberts MD Work Phone: Start: 05-29-2024 End: 05-29-2024 Depression screening Nohemi Lmeus MD Work Phone: Start: 05-29-2024 End: 05-29-2024 Falls risk assessment documented Nohemi Lemus MD Work Phone: Start: 05-29-2024 End: 05-29-2024 Flu immunize order/admin Nohemi cano MD Work Phone: Start: 05-29-2024 End: 05-29-2024 Most recent diastolic blood pressure 80-89 mm hg Nohemi Lemus MD Work Phone: Start: 05-29-2024 End: 05-29-2024 Most recent systolic blood press 130-139mm hg Nohemi Lemus MD Work Phone: Start: 05-29-2024 End: 05-29-2024 Pos clin depres scrn f/u doc Nohemi ochoa MD Work Phone: Start: 05-29-2024 End: 05-29-2024 PPPS, subseq visit Nohemi Farooq Work Phone: Start: 05-29-2024 End: 05-29-2024 Pt falls assess docd w/o fall/injury past year Nohemi Lemus MD Work Phone: Start: 05-29-2024 End: 05-29-2024 Scr dep neg, no plan reqd Nohemi poole MD Work Phone: Start: 05-27-2024 End: 05-27-2024 Screening mammography Nohemi Lemus MD Work Phone: Start: 05-19-2024 End: 05-19-2024 Screening mammography Nohemi Lemus MD Work Phone: Start: 05-16-2024 End: 05-16-2024 Lab findings surveillance Sindy TRAVIS Work Phone: Start: 05-16-2024 End: 05-16-2024 Lipid panel results documented & reviewed Sindy Ulrich LPN Work Phone: Start: 07-05-2023 End: 07-05-2023 Adv care pln/ no alt dcsn mkr docd or refusal Nohemi Lemus MD Work Phone: Start: 07-05-2023 End: 07-05-2023 Depression screening Nohemi Lemus MD Work Phone: Start: 07-05-2023 End: 07-05-2023 Falls risk assessment documented Nohemi Lemus MD Work Phone: Start: 07-05-2023 End: 07-05-2023 PPPS, subseq visit Nohemi Farooq Work Phone: Start: 07-05-2023 End: 07-05-2023 Pt falls assess docd w/o fall/injury past year Nohemi Lemus MD Work Phone: Start: 07-05-2023 End: 07-05-2023 Scr dep neg, no plan reqd Nohemi poole MD Work Phone: Start: 05-26-2023 End: 05-26-2023 Mammography Marya Simmons LPN Comment on above: Within Normal Limits . 07/2011 NL, 07/2012 NL, 07/3013 NL, 12/2014 neg, 05/2016 neg, 01/09/19 left spot suspicious, right spot benign. surgical consult recommended, 05/20/20 neg, 09/14/21 neg, 03/14/22 left breast unchanged. repeat in 6 mos recommended from radiology, 09/14/22 neg, dense, follow up spot compression,m 05/26/23 mammo neg lump felt, spot compression left neg Start: 05-26-[address] Nohemi Lemus Work Phone: Start: 01-12-2023 End: 01-12-2023 Dual energy X-ray absorptiometry Marya Simmons LPN Comment on above: Within Normal Limits . 09/14/21 no bone loss Start: 11-21-2022 End: 11-21-2022 Simple mastectomy Sindy Ulrich LPN Work Phone: Start: 09-30-2022 End: 10-06-2022 Bx breast w/device 1st lesion ultrasound guid Nohemi Lemus MD Work Phone: Start: 09-14-2022 End: 09-14-2022 cardiolite stress test Nohemi haynes MD Work Phone: Comment on above: 10/27/17 stress neg, 11/15 inferior reversible defect (Theresa Little) Start: 09-14-2022 End: 09-14-2022 Diagnostic mammography computer-aided detcj bi Nohemi Lemus MD Work Phone: Start: 09-14-2022 End: 09-14-2022 Nohemi Farooq Work Phone: Start: 07-11-2022 End: 07-11-2022 Adv care pln/ no alt dcsn mkr docd or refusal Nohemi Lemus MD Work Phone: Start: 07-11-2022 End: 07-11-2022 Depression screening Nohemi Lemus MD Work Phone: Start: 07-11-2022 End: 07-11-2022 Docrev cur meds by leela ochoa MD Work Phone: Start: 07-11-2022 End: 07-11-2022 Falls risk assessment documented Nohemi Lemus MD Work Phone: Start: 07-11-2022 End: 07-11-2022 Flu immunize order/admin Nohemi cano MD Work Phone: Start: 07-11-2022 End: 07-11-2022 Most recent diastolic blood pressure 80-89 mm hg Nohemi Lemus MD Work Phone: Start: 07-11-2022 End: 07-11-2022 Most recent systolic blood pressure <130 mm hg Nohemi Lemus MD Work Phone: Start: 07-11-2022 End: 07-11-2022 PPPS, subseq visit Nohemi Farooq Work Phone: Start: 07-11-2022 End: 07-11-2022 Pt falls assess docd w/o fall/injury past year Nohemi Lemus MD Work Phone: Start: 07-11-2022 End: 07-11-2022 Scr dep neg, no plan reqd Nohemi poole MD Work Phone: Start: 07-11-2022 End: 09-15-2022 Us breast uni real time with image limited Nohemi Lemus MD Work Phone: Start: 07-11-2022 End: 09-14-2022 Myocardial spect multiple studies Nohemi Lemus MD Work Phone: Start: 07-04-2022 End: 07-04-2022 Lab findings surveillance Marya Simmons LPN Comment on above: 102 Start: 07-04-2022 End: 07-04-2022 Lipid panel results documented & reviewed Marya Simmons LPN Comment on above: Abnormal. tc 187 hdl 64 ldl 108 trig 67 Start: 03-14-2022 End: 03-17-2022 Diagnostic mammography computer-aided detcj uni Norma Shah LPN Comment on above: LEFT Start: 09-08-2021 End: 04-22-2024 Ndl emg 2 xtr w/wo related paraspinal areas Nohemi Lemus MD Work Phone: Start: 07-07-2021 End: 07-07-2021 Depression screening Nohemi Lemus MD Work Phone: Start: 07-07-2021 End: 07-07-2021 Docrev cur meds by leela ochoa MD Work Phone: Start: 07-07-2021 End: 09-15-2021 Dxa bone density study 1/> sites axial skel Nohemi Lemus MD Work Phone: Start: 07-07-2021 End: 07-07-2021 Falls risk assessment documented Nohemi Lemus MD Work Phone: Start: 07-07-2021 End: 07-07-2021 Flu immunize order/admin Nohemi cano MD Work Phone: Start: 07-07-2021 End: 07-07-2021 Most recent diastolic blood pressure < 80 mm hg Nohemi Lemus MD Work Phone: Start: 07-07-2021 End: 07-07-2021 Most recent systolic blood pressure <130 mm hg Nohemi Lemus MD Work Phone: Start: 07-07-2021 End: 07-07-2021 Pneumococcal vaccine admin rcvd prior Nohemi Lemus MD Work Phone: Start: 07-07-2021 End: 07-07-2021 PPPS, subseq visit Nohemi Farooq Work Phone: Start: 07-07-2021 End: 07-07-2021 Pt falls assess docd w/o fall/injury past year Nohemi Lemus MD Work Phone: Start: 07-07-2021 End: 07-07-2021 Scr dep neg, no plan reqd Nohemi poole MD Work Phone: Start: 07-07-2021 End: 09-16-2021 Screening mammography bi 2-view breast inc cad Nohemi Lemus MD Work Phone: Start: 05-15-2020 End: 05-19-2020 Ct head/brain w/o & w/contrast material Nohemi Lemus MD Work Phone: Start: 05-15-2020 End: 05-19-2020 Duplex scan extracranial art compl bi study Nohemi Lemus MD Work Phone: Start: 05-11-2020 End: 05-11-2020 Body mass index documented Nohemi roberts MD Work Phone: Start: 05-11-2020 End: 05-11-2020 Depression screening Nohemi Lemus MD Work Phone: Start: 05-11-2020 End: 05-11-2020 Docrev cur meds by leela ochoa MD Work Phone: Start: 05-11-2020 End: 05-11-2020 Falls risk assessment documented Nohemi Lemus MD Work Phone: Start: 05-11-2020 End: 05-11-2020 Most recent diastolic blood pressure < 80 mm hg Nohemi Lemus MD Work Phone: Start: 05-11-2020 End: 05-11-2020 Most recent systolic blood pressure <130 mm hg Nohemi Lemus MD Work Phone: Start: 05-11-2020 End: 05-11-2020 Pneumococcal vaccine admin rcvd prior Nohemi Lemus MD Work Phone: Start: 05-11-2020 End: 05-11-2020 PPPS, subseq visit Nohemi Farooq Work Phone: Start: 05-11-2020 End: 05-11-2020 Pt falls assess docd w/o fall/injury past year Nohemi Lemus MD Work Phone: Start: 05-11-2020 End: 05-11-2020 Pt on daily asa/antiplat Nohemi cano MD Work Phone: Start: 05-11-2020 End: 05-11-2020 Scr dep neg, no plan reqd Nohemi poole MD Work Phone: Start: 05-11-2020 End: 05-21-2020 Screening digital breast tomosynthesis bi Nohemi Lemus MD Work Phone: Start: 01-02-2019 End: 01-02-2019 All Questionnaires Negative Marya reyes LPN Start: 01-02-2019 End: 01-02-2019 Body mass index documented Nohemi roberts MD Work Phone: Start: 01-02-2019 End: 01-02-2019 BP scrn perf rec interval Nohemi poole MD Work Phone: Start: 01-02-2019 End: 01-02-2019 Current tobacco non-user cad cap copd pv dm Nohemi Lemus MD Work Phone: Start: 01-02-2019 End: 01-02-2019 Depression screening Nohemi Lemus MD Work Phone: Start: 01-02-2019 End: 01-02-2019 Docrev cur meds by leela ochoa MD Work Phone: Start: 01-02-2019 End: 01-02-2019 Falls risk assessment documented Nohemi Lemus MD Work Phone: Start: 01-02-2019 End: 01-02-2019 Initial preventive exam Nohemi mcneil MD Work Phone: Start: 01-02-2019 End: 01-02-2019 Microscopic examination of cervical Papanicolaou smear Marya Simmons LPN Comment on above: Normal. Within Ida l Limits. 10/09/08 neg, 01/02/19 neg Start: 01-02-2019 End: 01-02-2019 Most recent diastolic blood pressure < 80 mm hg Nohemi Lemus MD Work Phone: Start: 01-02-2019 End: 01-02-2019 Most recent systolic blood pressure <130 mm hg Nohemi Lemus MD Work Phone: Start: 01-02-2019 End: 01-02-2019 Pt falls assess docd w/o fall/injury past year Nohemi Lemus MD Work Phone: Start: 01-02-2019 End: 01-02-2019 Pt not currently on statin Nohemi roberts MD Work Phone: Start: 01-02-2019 End: 01-02-2019 Pt on daily asa/antiplat Nohemi cano MD Work Phone: Start: 01-02-2019 End: 01-02-2019 Scr dep neg, no plan reqd Nohemi poole MD Work Phone: Start: 01-02-2019 End: 01-09-2019 Screening mammography bi 2-view breast inc cad Nohemi Lemus MD Work Phone: Start: 01-02-2019 End: 01-02-2019 Screening test visual acuity quantitative bilat Nohemi Lemus MD Work Phone: Start: 01-17-2018 End: 01-17-2018 Screening colonoscopy Marya Simmons [employer] Comment on above: Dr Gretta Munguia, shelley b iopsy needed, hemorrhoids and diverticulosis Start: 11-03-2017 End: 11-03-2017 Body mass index documented Nohemi roberts MD Work Phone: Start: 11-03-2017 End: 11-03-2017 Current tobacco non-user cad cap copd pv dm Nohemi Lemus MD Work Phone: Start: 11-03-2017 End: 11-03-2017 Dischrg meds reconciled w/current med list Nohemi Lemus MD Work Phone: Start: 11-03-2017 End: 11-03-2017 Docrev cur meds by leela ochoa MD Work Phone: Start: 11-03-2017 End: 11-03-2017 Flu immunize order/admin Nohemi cano MD Work Phone: Start: 11-03-2017 End: 11-03-2017 Most recent diastolic blood pressure < 80 mm hg Nohemi Lemus MD Work Phone: Start: 11-03-2017 End: 11-03-2017 Most recent systolic blood pressure <130 mm hg Nohemi Lemus MD Work Phone: Start: 10-27-2017 End: 10-27-2017 Echocardiography Sindy Ulrich LPN Work Phone: Comment on above: 09/24/15:maximo Grover aortic stenosis, 10/27/17 repeat echo neg Start: 10-26-2017 End: 10-31-2017 Ecg routine ecg w/least 12 lds i&r only Nohemi Lemus MD Work Phone: Start: 10-26-2017 End: 10-26-2017 Body mass index documented Nohemi roberts MD Work Phone: Start: 08-31-2017 End: 08-31-2017 Body mass index documented Nohemi roberts MD Work Phone: Start: 09-18-2016 End: 09-18-2016 transesophageal echo Sindy Ulrich LPN Work Phone: Comment on above: 09/18/16 ventricular s eptal dyssynergy Start: 09-18-2016 End: 09-18-2016 Sindy Ulrich LPN Work Phone: Start: 06-14-2016 End: 06-20-2016 Mammogram, both breasts Nohemi mcneil MD Work Phone: Start: 10-16-2015 End: 10-16-2015 Operation on heart valve Sindy Hightower Work Phone: Comment on above: aortic valve replace d with bovine valve Start: 12-29-2014 End: 01-01-2015 Echo tthrc r-t 2d w/wom-mode compl spec&colr d Nohemi Lemus MD Work Phone: Start: 12-15-2014 End: 01-07-2015 Mammogram, screening Nohemi Lemus MD Work Phone: Start: 08-27-2013 End: 08-30-2013 Doppler echocard pulse wave w/spectral display Hernandez Murray MD Work Phone: Start: 08-21-2013 End: 12-05-2014 Echo tthrc r-t 2d w/wom-mode compl spec&colr d Nohemi Lemus MD Work Phone: Start: 08-18-2013 End: 08-18-2013 Screening for malignant neoplasm of large intestine Marya Simmons LPN Comment on above: 08/2013-stool occult blood [id number], 2013 colonoscopy Start: 08-18-2013 End: 08-18-2013 Marya Simmons LPN Start: 07-31-2013 End: 07-31-2013 Mammogram, screening Nohemi Lemus MD Work Phone: Start: 05-06-2013 End: 05-06-2013 Colonoscopy Sindy Ulrich LPN Work Phone: Start: 08-30-2012 End: 08-30-2012 Shaving skin lesion 1 trunk/arm/leg diam 0.5cm/< Nohemi Lemus MD Work Phone: Start: 08-30-2012 End: 08-30-2012 Ecg routine ecg w/least 12 lds i&r only Nohemi Lemus MD Work Phone: Start: 07-16-2012 End: 07-26-2012 Mammogram, screening Nohemi Lemus MD Work Phone: Start: 04-26-2012 End: 05-07-2012 Ct pelvis w/o & w/contrast material Nohemi Lemus MD Work Phone: Start: 09-18-2011 End: 09-18-2011 Heart Cath Sindy Ulrich LPN Work Phone: Comment on above: aortic stenosis, [facility] Start: 09-18-2011 End: 09-18-2011 Sindy Ulrich LPN Work Phone: Start: 05-19-2011 End: 05-19-2011 Microscopic examination of cervical Papanicolaou smear Sindy Ulrich LPN Work Phone: Start: 02-18-2011 End: 10-05-2011 Mammogram, screening Nohemi Lemus MD Work Phone: Breast lesion on mammography Marya Simmons LPN section Sindy Beach y [employer] Work Phone: Comment on above: 1986 section Sindy Melo y [employer] Work Phone: Cholecystectomy Sindy Ulrich [employer] Work Phone: Cholecystectomy Sindy Ulrich [employer] Work Phone: THALIA test Sindy Ulrich LP N Work Phone: Comment on above: negative 05/2012 (Dr Elizabeth) Decompression of med vladimir nerve Sindy Meloy [employer] Work Phone: Decompression of med vladimir nerve Sindy Ulrich [employer] Work Phone: Ophthalmic examinati on and evaluation Marya Simmons [employer] Comment on above: normal per pa tient report stress echo Sindy Ulrich LP N Work Phone: Comment on above: 04/07 Ao stenosis Sindy Ulrich LP N Work Phone: Sindy Ulrich LP N Work Phone: Plan of Treatment Date Care Activity Detail Author Start: 06-02-2025 [facility]. Start: 05-26-2025 Blood count complete auto&auto difrntl wbc [employer], [email or web address]. Start: 05-26-2025 Comprehensive metabo lic panel [employer].; [employer] Start: 05-26-2025 Lipid panel [facility] [employer], [email or web address]. Start: 05-26-2025 [facility]. Start: 12-30-2024 [facility]. Start: 12-18-2024 CT Chest W contrast IV [facility] Start: 12-18-2024 CT of thorax with contrast Chest WIT H Contrast [facility] Start: 11-29-2024 Patient referral [facility] Work Phone: Start: 11-06-2024 End: 11-07-2024 Mri spinal canal lumbar w/o contrast material [employer]. Start: 08-19-2024 [employer]. Start: 05-29-2024 [employer]. Start: 05-29-2024 Hemoglobin glycosyla sherif a1c [facility]. Start: 04-18-2024 Blood count complete auto&auto difrntl wbc [facility]. Start: 04-18-2024 Comprehensive metabo lic panel [employer].; [facility]. Start: 04-18-2024 Lipid panel [employer]. Start: 04-18-2024 Screening mammograph y bi 2-view breast inc cad [facility]. Start: 10-06-2023 [employer]. Start: 10-05-2023 Lipid panel [employer]. Start: 10-05-2023 [employer]. Start: 05-25-2022 Screening mammograph y bi 2-view breast inc cad [facility].; [facility]. Start: 02-09-2022 Diagnostic mammograp hy computer-aided detcj bi [employer].; [facility]. Start: 07-07-2021 End: 07-12-2021 Ndl emg 2 xtr w/wo related paraspinal areas [employer].; [facility]. CBC W Auto Different ial panel - Blood [facility] CBC W Auto Different ial panel - Blood [facility] CBC W Auto Different ial panel - Blood [facility] Comprehensive metabo lic 1999 panel - Serum or Plasma [facility] metabo lic 1999 panel - Serum or Plasma [facility] DXA Bone [Mass/Area] Bone density [facility] MG Breast - left Screening [facility] Patient referral [facility] Work Phone: [facility] Immunizations Immunization Date Immunization Notes Care Provider Fa cility 05-29-2024 influenza, injectabl e, quadrivalent, preservative free Nohemi Lemus MD [facility] [employer] 05-29-2024 influenza virus vaccine, unspecified formulation Nohemi Lemus MD Work Phone: [facility]; [employer] 07-05-2023 Pneumococcal conjugate, 20 valent (PCV20) Nohemi Lemus MD Work Phone: [facility]; [employer] Comment on above: [facility] iven: * Pneumococcal Conjugate Vaccine (01/27/23) 07-05-2023 influenza, injectabl e, quadrivalent, preservative free Nohemi Lemus MD Work Phone: [facility]; [employer] Comment on above: Site: Left ArmVIS Gi ese: * Influenza (Flu) Vaccine (Inactivated or Recombinant) (04/23/21) 07-05-2023 pneumococcal Conjugate, unspecified formulation Nohemi Lemus MD Work Phone: [facility]; [employer] 07-11-2022 influenza virus vaccine, unspecified formulation Nohemi Lemus MD Work Phone: [facility]; [employer]. 07-11-2022 influenza, injectabl e, quadrivalent, contains preservative Nohemi Lemus MD Work Phone: [facility]; [employer]. Comment on above: Site: Left DeltoidVI S Given: * Influenza Inactivated (04/23/21) 02-02-2022 COVID-Pfizer (30 MCG/0.3 ML) Nohemi Lemus MD Work Phone: [place] [employer] [facility]; [place] [employer] [facility] 06-28-2021 COVID-Pfizer (30 MCG/0.3 ML) Nohemi Lemus MD Work Phone: [place] [employer] [facility]; [employer] Comment on above: in [place] 06-28-2021 influenza, high dose seasonal, preservative-free Nohemi Lemus MD Work Phone: [facility]; [employer] Comment on above: approx date, given i rosalia GONZALEZ 11-26-2020 COVID-Pfizer (30 MCG/0.3 ML) Nohemi Lemus MD Work Phone: [facility] [employer]; [employer]. 11-04-2020 COVID-Pfizer (30 MCG/0.3 ML) Nohemi Lemus MD Work Phone: [place] [email or web address]; [employer] 01-02-2019 pneumococcal conjuga te vaccine, 13 valent Nohemi Lemus MD Work Phone: [facility]; [employer] Comment on above: Site: Left DeltoidVI S Given: * Pneumococcal Conjugate (PCV13) (07/23/15) 06-18-2017 influenza virus vaccine, unspecified formulation Nohemi Lemus MD Work Phone: [facility]; [employer] Comment on above: at work 06-18-2017 influenza, injectabl e, quadrivalent, contains preservative Nohemi Lemus MD Work Phone: [facility] [employer]; [employer] Comment on above: at work 08-21-2013 tetanus toxoid, reduced diphtheria toxoid, and acellular pertussis vaccine, adsorbed Nohemi Lemus MD Work Phone: [employer]; [employer] Comment on above: Site: Deltoid (Left) VIS Given: * TDAP, Td (01/24/2013) * Tetanus/Diphtheria/(Pertussis) (Td/Tdap) (08/05/08) * Tetanus/Diptheria/Pertussis (Tdap/Td) 10/11/11 08-21-2013 zoster vaccine, live Nohemi eryes MD Work Phone: [employer]; [employer] Comment on above: Site: Posterior Uppe r Arm (Left)VIS Given: * Shingles (Herpes Zoster) (06/23/09) 08-18-2013 zoster vaccine, live Nohemi reyes MD Work Phone: [facility]; [facility] 06-18-2013 influenza, seasonal, injectable Nohemi Lemus MD Work Phone: [facility]. Comment on above: at work Payers Date Payer Category Payer Self-pay [id number] 2022 Medicare [id number] 1950 Unknown [id number] 2.16.8 [id number] 1950 Unknown [id number] 2.16.8 [id number] 1950 Unknown [id number] 2.16.8 [id number] 1950 Unknown [id number] 2.16.8 [id number] 1950 Unknown [id number] 2.16.8 [id number] 1950 Unknown [id number] 2.16.8 [id number] 1950 Unknown [id number] 2.16.8 [id number] Medicare [id number] Unknown [id number] Unknown [employer] [id number] Unknown [id number] Unknown Unknown [id number] 2.16.8 [id number] Unknown [id number] 2.16.8 [id number] Unknown [id number] 2.16.8 [id number] Unknown [id number] 2.16.8 [id number] Unknown [id number] 2.16.8 [id number] Unknown [id number] 2.16.8 [id number] Unknown [id number] 2.16.8 [id number] Unknown [id number] 2.16.8 [id number] Social History Date Type Detail Facility [facility] Start: 09-12-2019 Non-smoker [facility] Start: 1950 Sex Assigned At Female [facility] Alcohol Use Alcohol Use [facility] [employer], [email or web address] Marital status: Marital status: ; . Oneal [facility] [employer] Tobacco Use: Tobacco Use: ; N ever smoker. [employer] Oneal [facility] [employer], [email or web address]. Work Phone: Start: 10-24-2022 Never smoked tobacco [facility] Start: 12-19-2024 Sex Female (finding) [facility] Sex Female [facility] Evaluation note 06-04-2025 Note Date & Type Note Facility 06-04-2025 Evaluation note Diagnosis Onset Date Resolution Exertional dyspnea acute Sept2024 12:35pm Primary cancer of right female breast acute June 042024 12:35pm [facility] Work Phone: Progress note 06-04-2025 Note Date & Type Note Facility 06-04-2025 Progress note [facility] Progress note 06-04-2025 Note Date & Type Note Facility 06-04-2025 Progress note Note Date/Time June 04, 2025 2:21pm [facility] [place] [address] OFFICE VISIT Date of Service: 06/04/25 1330 MR#: [id number] Acct: [id number] Name: JOHN WOOD Rep #: [id number] : 1950 From: Tina Thrasher ch, NP 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 Age/Sex: 75/F Location: [facility] [facility] Status: Signed HPI Subjective Date of Service 06/04/25 Chief Complaint Breast cancer History of Present Illness 75-year-old female who presented after an abnormal screening mammogram. She hasno family history of breast cancer but her mother in her 40s with metastatic colon cancer. Patient has been vigilant with screening mammographies and colonoscopies. September 14, 2022 screening mammogram: Right breast mass subareolar measuring 19 mm in maximum diameter. Left breast focal calcifications unchanged from August 2021. September 14, 2022 ultrasound: Right breast solid suspicious lesion subareolar measuring 19 mm in maximum diameter. Left breast: No significant suspicious findings. October 05, 2022 right breast core biopsy: Invasive ductal carcinoma, grade 3, ER positive (98%, strong) MT positive (95 percent, strong) HER2 focal equivocal 2+ by IHC negative by FISH. October 24, 2022 CT scan chest abdomen and pelvis: No evidence for metastatic disease. October 2022 bone scan: No evidence for metastatic disease November 21, 2022: Right breast mastectomy: Invasive ductal cancer, grade 3, 20 mm in maximum diameter, lymphovascular invasion not identified, DCIS found, marginsnegative, 6 lymph nodes negative for metastatic cancer Oncotype Dx score of 7 ( low risk) Treatment summary and response: December 11, 2022 right breast mastectomy with sentinel lymph node biopsy. Adjuvant hormonal therapy with Arimidex December 2022 Interval History The patient is presenting to clinic for a planned 6 month follow up. Confirms good adherence and tolerance to AI at this time. Denies joint/muscle pain, vaginal dryness, and fatigue. + hot flashes intermittently, less frequently, no sleep disturbance. Exertional dyspnea continues, shared this concern with her director of recruitment and admissions. States all testing was normal. She also underwent a CT chest with contrast December 2024to address dyspnea c/o. CT did not demonstrate any acute pulmonary abnormality. Further denies weight loss, headaches, palpitations, bone pain, abd pain, changes in her bowel habits, and any changes along right chest wall or within the left breast she has noted while bathing/dressing. Does not perform self exam. [facility] History History of breast cancer Exertional dyspnea Screening for breast cancer Post-menopausal Screening for osteoporosis Left breast mass Encounter for education History of colon polyps Coronary artery disease Dyslipidemia GERD (gastroesophageal reflux disease) Primary cancer of right female breast Microscopic colitis Dysuria UTI (urinary tract infection) Carpal tunnel syndrome Obesity Invasive ductal carcinoma of right breast Surgical History S/P lumpectomy, left breast History of total mastectomy of left breast History of delivery S/P cholecystectomy History of carpal tunnel surgery H/O aortic valve replacement Family History (Updated 06/04/25 @ 14:03 by Tina John AUTOM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, [employer]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) Father Heart disease Mother Cancer Brother Cancer abdominal cancer Other Colon cancer Social History Smoking Status: Never smoker alcohol intake: current alcohol intake frequency: holidays/special occasions only ROS ROS Narrative Negative except as documented in the interval HPI Intake Vital Signs 12/05/24 13:28 06/04/25 13:30 Height 5 ft 7 in 5 ft 9 in Weight: 217 lb BMI 32.0 BP 125/69 H Blood Pressure Location Lt brachial Position Sitting Respiration 16 Pulse 66 Pulse Source Monitor Temp 97.1 F L Temperature Source Temporal Artery Pulse Oximetry (%) 97 Oxygen Delivery Method room air Intake Framing Specialist Required: No Accompanied by: Significant Other Is patient in pain?: No Allergies latex Allergy (Verified 06/04/25 13:33) Rash Sulfa (Sulfonamide Antibiotics) Allergy (Verified 06/04/25 13:33) Itching morphine Adverse Reaction (Verified 06/04/25 13:33) confusion Medications ?Medication ?Instructions ?Recorded ?Confirmed ?Type aspirin 81 mg chewable tablet 81 mg PO DAILY@0800 08/1906/04/25 History metoprolol tartrate 25 mg tablet 25 mg PO DAILY 06/04/25 History omeprazole 40 mg capsule,delayed 40 mg PO DAILY 06/04/25 History release loperamide 2 mg capsule 2 mg PO Q6H PRN 10/24/22 History ezetimibe 10 mg tablet 10 mg PO DAILY 10/27/2205/19 History calcium carbonate (Calcium 600) 600 mg PO DAILY 06/04/25 History cholecalciferol (vitamin D3) 50 50 mcg PO DAILY 06/04/25 History mcg (2,000 unit) capsule evolocumab 140 mg/mL subcutaneous 140 mg subcut Q2W 06/04/25 History pen injector (Kely Parker) anastrozole 1 mg tablet 1 mg PO DAILY #90 TABLETS 06/04/25 Rx isosorbide mononitrate 30 mg 60 mg PO DAILY 12/05/24 0 06/04/25 History tablet,extended release 24 hr atorvastatin 40 mg tablet (Lipitor) 40 mg PO QDAY 05/1906/04/25 History Have you fallen in the past year?: No Central Venous Access Central Venous Access: No CBC/CMP performed at [facility] 05/13/25 reviewed and grossly WNL Exam Physical Exam Narrative ECOG 0 Const alert, oriented x3 and no apparent distress General Appearance: comfortable HEENT Face and Sinus: normal facial exam Mouth: oral and palatal mucosa normal Eyes Eyes Narrative: wears glasses General Eye: normal appearance of both eyes Neck no lymphadenopathy, supple and no JVD Lymph Lymphatic: no lymphadenopathy noted Chest Chest Narrative: Deferred by patient Resp clear to auscultation bilaterally Cardio regular rate and regular rhythm Jugular Venous Distention: Negative for JVD GI soft to palpation, non-tender and non-distended; Negative for hepatosplenomegaly Back/Spine no thoracic nor lumbar tenderness Extremity no clubbing, cyanosis or edema Skin no rashes or lesions noted Neuro oriented x3, CN's II-XII intact bilaterally, moves all extremities and no focal motor deficits Speech: speech normal Gait (Neuro): normal gait Psych mental status grossly normal Coding Level of Care Code Off vis,est,level 4 Exam Problem Focused Diagnoses Primary cancer of right female breast C50.911 Exertional dyspnea R06.09 Assessment and Plan Assessment and Plan (1) Primary cancer of right female breast: Status: Acute (2) Exertional dyspnea: Status: Acute Plan 75-year-old female with pathologic stage I (T1c, N0, M0) 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 Oncotype DX score of 7 (low risk; with benefit from systemic chemotherapy less than 1%) Patient is status post right mastectomy with sentinel lymph node biopsy November 2022. Started adjuvant hormonal therapy with anastrozole December 2022. The palpable left breast lesion in May 2023 was excised and was found to be a lipoma. Chronic comorbid conditions: Coronary artery disease, dyslipidemia, GERD, colitis and history of colon polyps. Plan: Based on NCCN guidelines: 1. Continue systemic adjuvant hormonal therapy with an aromatase inhibitor for at least 5 years. Left breast screening mammogram to be completed later this afternoon. 2. Discussed bone health, vitamin D and calcium supplement. Baseline pretreatment bone density December 2022 was normal. Repeat bone density scheduled for later this afternoon. 3. Cardiovascular considerations in breast cancer survivorship- on AI requires lipid panel at least annually. On statin therapy and Repatha per cardiology, . RTO in 6 months, CBC/CMP Clinical Quality Measures Falls Risk Screening/Assistive Devices Have you fallen in the past year?: No 06/04/25 1421 <Electronically signed by Tina montiel NP 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-[employer]> Date _ Tina John NP 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-C Cosigner Signature: Date (if applicable) CC: Dr. Nohemi Lemus MD ~ [facility] Work Phone: Evaluation note 09-02-2024 Note Date & Type Note Facility 09-02-2024 Evaluation note Diagnosis Onset Date Resolution Primary cancer of right female breast acute September 02 1:20pm Degenerative disc disease, lumbar acute November 29, 2024 2:00pm Lumbar stenosis without neurogenic claudication acute November 292024 2:00pm Exertional dyspnea acute December 05, 2024 12:46pm Primary cancer of right female breast acute December 05, 2024 12:46pm [facility] Work Phone: Evaluation note Note Date & Type Note Facility Evaluation note Diagnosis Onset Date Primary cancer of right female breast acute Primary cancer of right female breast acute Encounter for education acut e Primary cancer of right female breast acute [facility] Work Phone: Evaluation note Note Date & Type Note Facility Evaluation note Diagnosis Onset Date Primary cancer of right female breast acute Left breast mass acute Primary cancer of right female breast acute [facility] Work Phone: Evaluation note Note Date & Type Note Facility Evaluation note Diagnosis Onset Date Resolution Exertional dyspnea acute 2024 12:35pm Primary cancer of right female breast acute June 042024 12:35pm [facility] Work Phone: Reason for referral (narrative) Note Date & Type Note Facility Reason for referral (narrative) No reason for referral information available [facility] Work Phone: Summary Purpose Family History No Family History Records Found Relationship Condition Age at Onset Recorded Date/T marjorie father Cardiac disease Unknown mother Malignant neoplasm Unknown Colon Cancer Status:Active Comments:Mother Father Status:Active Comments: d. age 68 due to NE Heart Disease Status:Active Comments:Father Lymphoma Status:Active Comments:Mother Mother Status:Active Comments: d. age 47 colon cancer Colon Cancer Status:Active Comments:Mother Father Status:Active Comments: d. age 68 due to NE Heart Disease Status:Active Comments:Father Lymphoma Status:Active Comments:Mother Mother Status:Active Comments: d. age 47 colon cancer Colon Cancer Status:Active Comments:Mother Father Status:Active Comments: d. age 68 due to NE Heart Disease Status:Active Comments:Father Lymphoma Status:Active Comments:Mother Mother Status:Active Comments: d. age 47 colon cancer Colon Cancer Status:Active Comments:Mother Father Status:Active Comments: d. age 68 due to NE Heart Disease Status:Active Comments:Father Lymphoma Status:Active Comments:Mother Mother Status:Active Comments: d. age 47 colon cancer Colon Cancer Status:Active Comments:Mother Father Status:Active Comments: d. age 68 due to NE Heart Disease Status:Active Comments:Father Lymphoma Status:Active Comments:Mother Mother Status:Active Comments: d. age 47 colon cancer Colon Cancer Status:Active Comments:Mother Father Status:Active Comments: d. age 68 due to NE Heart Disease Status:Active Comments:Father Lymphoma Status:Active Comments:Mother Mother Status:Active Comments: d. age 47 colon cancer Colon Cancer Status:Active Comments:Mother Father Status:Active Comments: d. age 68 due to NE Heart Disease Status:Active Comments:Father Lymphoma Status:Active Comments:Mother Mother Status:Active Comments: d. age 47 colon cancer Colon Cancer Status:Active Comments:Mother Father Status:Active Comments: d. age 68 due to NE Heart Disease Status:Active Comments:Father Lymphoma Status:Active Comments:Mother Mother Status:Active Comments: d. age 47 colon cancer Colon Cancer Status:Active Comments:Mother Father Status:Active Comments: d. age 68 due to NE Heart Disease Status:Active Comments:Father Lymphoma Status:Active Comments:Mother Mother Status:Active Comments: d. age 47 colon cancer Colon Cancer Status:Active Comments:Mother Father Status:Active Comments: d. age 68 due to NE Heart Disease Status:Active Comments:Father Lymphoma Status:Active Comments:Mother Mother Status:Active Comments: d. age 47 colon cancer Colon Cancer Status:Active Comments:Mother Father Status:Active Comments: d. age 68 due to NE Heart Disease Status:Active Comments:Father Lymphoma Status:Active Comments:Mother Mother Status:Active Comments: d. age 47 colon cancer Colon Cancer Status:Active Comments:Mother Father Status:Active Comments: d. age 68 due to NE Heart Disease Status:Active Comments:Father Lymphoma Status:Active Comments:Mother Mother Status:Active Comments: d. age 47 colon cancer Colon Cancer Status:Active Comments:Mother Father Status:Active Comments: d. age 68 due to NE Heart Disease Status:Active Comments:Father Lymphoma Status:Active Comments:Mother Mother Status:Active Comments: d. age 47 colon cancer Colon Cancer Status:Active Comments:Mother Father Status:Active Comments: d. age 68 due to NE Heart Disease Status:Active Comments:Father Lymphoma Status:Active Comments:Mother Mother Status:Active Comments: d. age 47 colon cancer Colon Cancer Status:Active Comments:Mother Father Status:Active Comments: d. age 68 due to NE Heart Disease Status:Active Comments:Father Lymphoma Status:Active Comments:Mother Mother Status:Active Comments: d. age 47 colon cancer Colon Cancer Status:Active Comments:Mother Father Status:Active Comments: d. age 68 due to NE Heart Disease Status:Active Comments:Father Lymphoma Status:Active Comments:Mother Mother Status:Active Comments: d. age 47 colon cancer Colon Cancer Status:Active Comments:Mother Father Status:Active Comments: d. age 68 due to NE Heart Disease Status:Active Comments:Father Lymphoma Status:Active Comments:Mother Mother Status:Active Comments: d. age 47 colon cancer Colon Cancer Status:Active Comments:Mother Father Status:Active Comments: d. age 68 due to NE Heart Disease Status:Active Comments:Father Lymphoma Status:Active Comments:Mother Mother Status:Active Comments: d. age 47 colon cancer Colon Cancer Status:Active Comments:Mother Father Status:Active Comments: d. age 68 due to NE Heart Disease Status:Active Comments:Father Lymphoma Status:Active Comments:Mother Mother Status:Active Comments: d. age 47 colon cancer Colon Cancer Status:Active Comments:Mother Father Status:Active Comments: d. age 68 due to NE Heart Disease Status:Active Comments:Father Lymphoma Status:Active Comments:Mother Mother Status:Active Comments: d. age 47 colon cancer Colon Cancer Status:Active Comments:Mother Father Status:Active Comments: d. age 68 due to NE Heart Disease Status:Active Comments:Father Lymphoma Status:Active Comments:Mother Mother Status:Active Comments: d. age 47 colon cancer Colon Cancer Status:Active Comments:Mother Father Status:Active Comments: d. age 68 due to NE Heart Disease Status:Active Comments:Father Lymphoma Status:Active Comments:Mother Mother Status:Active Comments: d. age 47 colon cancer Colon Cancer Status:Active Comments:Mother Father Status:Active Comments: d. age 68 due to NE Heart Disease Status:Active Comments:Father Lymphoma Status:Active Comments:Mother Mother Status:Active Comments: d. age 47 colon cancer Colon Cancer Status:Active Comments:Mother Father Status:Active Comments: d. age 68 due to NE Heart Disease Status:Active Comments:Father Lymphoma Status:Active Comments:Mother Mother Status:Active Comments: d. age 47 colon cancer Colon Cancer Status:Active Comments:Mother Father Status:Active Comments: d. age 68 due to NE Heart Disease Status:Active Comments:Father Lymphoma Status:Active Comments:Mother Mother Status:Active Comments: d. age 47 colon cancer Colon Cancer Status:Active Comments:Mother Father Status:Active Comments: d. age 68 due to NE Heart Disease Status:Active Comments:Father Lymphoma Status:Active Comments:Mother Mother Status:Active Comments: d. age 47 colon cancer Colon Cancer Status:Active Comments:Mother Father Status:Active Comments: d. age 68 due to NE Heart Disease Status:Active Comments:Father Lymphoma Status:Active Comments:Mother Mother Status:Active Comments: d. age 47 colon cancer Colon Cancer Status:Active Comments:Mother Father Status:Active Comments: d. age 68 due to NE Heart Disease Status:Active Comments:Father Lymphoma Status:Active Comments:Mother Mother Status:Active Comments: d. age 47 colon cancer Colon Cancer Status:Active Comments:Mother Father Status:Active Comments: d. age 68 due to NE Heart Disease Status:Active Comments:Father Lymphoma Status:Active Comments:Mother Mother Status:Active Comments: d. age 47 colon cancer Colon Cancer Status:Active Comments:Mother Father Status:Active Comments: d. age 68 due to NE Heart Disease Status:Active Comments:Father Lymphoma Status:Active Comments:Mother Mother Status:Active Comments: d. age 47 colon cancer Colon Cancer Status:Active Comments:Mother Father Status:Active Comments: d. age 68 due to NE Heart Disease Status:Active Comments:Father Lymphoma Status:Active Comments:Mother Mother Status:Active Comments: d. age 47 colon cancer Colon Cancer Status:Active Comments:Mother Father Status:Active Comments: d. age 68 due to NE Heart Disease Status:Active Comments:Father Lymphoma Status:Active Comments:Mother Mother Status:Active Comments: d. age 47 colon cancer Colon Cancer Status:Active Comments:Mother Father Status:Active Comments: d. age 68 due to NE Heart Disease Status:Active Comments:Father Lymphoma Status:Active Comments:Mother Mother Status:Active Comments: d. age 47 colon cancer Colon Cancer Status:Active Comments:Mother Father Status:Active Comments: d. age 68 due to NE Heart Disease Status:Active Comments:Father Lymphoma Status:Active Comments:Mother Mother Status:Active Comments: d. age 47 colon cancer Colon Cancer Status:Active Comments:Mother Father Status:Active Comments: d. age 68 due to NE Heart Disease Status:Active Comments:Father Lymphoma Status:Active Comments:Mother Mother Status:Active Comments: d. age 47 colon cancer Colon Cancer Status:Active Comments:Mother Father Status:Active Comments: d. age 68 due to NE Heart Disease Status:Active Comments:Father Lymphoma Status:Active Comments:Mother Mother Status:Active Comments: d. age 47 colon cancer Colon Cancer Status:Active Comments:Mother Father Status:Active Comments: d. age 68 due to NE Heart Disease Status:Active Comments:Father Lymphoma Status:Active Comments:Mother Mother Status:Active Comments: d. age 47 colon cancer Colon Cancer Status:Active Comments:Mother Father Status:Active Comments: d. age 68 due to NE Heart Disease Status:Active Comments:Father Lymphoma Status:Active Comments:Mother Mother Status:Active Comments: d. age 47 colon cancer Colon Cancer Status:Active Comments:Mother Father Status:Active Comments: d. age 68 due to NE Heart Disease Status:Active Comments:Father Lymphoma Status:Active Comments:Mother Mother Status:Active Comments: d. age 47 colon cancer Colon Cancer Status:Active Comments:Mother Father Status:Active Comments: d. age 68 due to NE Heart Disease Status:Active Comments:Father Lymphoma Status:Active Comments:Mother Mother Status:Active Comments: d. age 47 colon cancer Colon Cancer Status:Active Comments:Mother Father Status:Active Comments: d. age 68 due to NE Heart Disease Status:Active Comments:Father Lymphoma Status:Active Comments:Mother Mother Status:Active Comments: d. age 47 colon cancer Colon Cancer Status:Active Comments:Mother Father Status:Active Comments: d. age 68 due to NE Heart Disease Status:Active Comments:Father Lymphoma Status:Active Comments:Mother Mother Status:Active Comments: d. age 47 colon cancer Colon Cancer Status:Active Comments:Mother Father Status:Active Comments: d. age 68 due to NE Heart Disease Status:Active Comments:Father Lymphoma Status:Active Comments:Mother Mother Status:Active Comments: d. age 47 colon cancer Colon Cancer Status:Active Comments:Mother Father Status:Active Comments: d. age 68 due to NE Heart Disease Status:Active Comments:Father Lymphoma Status:Active Comments:Mother Mother Status:Active Comments: d. age 47 colon cancer Colon Cancer Status:Active Comments:Mother Father Status:Active Comments: d. age 68 due to NE Heart Disease Status:Active Comments:Father Lymphoma Status:Active Comments:Mother Mother Status:Active Comments: d. age 47 colon cancer Colon Cancer Status:Active Comments:Mother Father Status:Active Comments: d. age 68 due to NE Heart Disease Status:Active Comments:Father Lymphoma Status:Active Comments:Mother Mother Status:Active Comments: d. age 47 colon cancer Colon Cancer Status:Active Comments:Mother Father Status:Active Comments: d. age 68 due to NE Heart Disease Status:Active Comments:Father Lymphoma Status:Active Comments:Mother Mother Status:Active Comments: d. age 47 colon cancer Colon Cancer Status:Active Comments:Mother Father Status:Active Comments: d. age 68 due to NE Heart Disease Status:Active Comments:Father Lymphoma Status:Active Comments:Mother Mother Status:Active Comments: d. age 47 colon cancer Colon Cancer Status:Active Comments:Mother Father Status:Active Comments: d. age 68 due to NE Heart Disease Status:Active Comments:Father Lymphoma Status:Active Comments:Mother Mother Status:Active Comments: d. age 47 colon cancer Colon Cancer Status:Active Comments:Mother Father Status:Active Comments: d. age 68 due to NE Heart Disease Status:Active Comments:Father Lymphoma Status:Active Comments:Mother Mother Status:Active Comments: d. age 47 colon cancer Colon Cancer Status:Active Comments:Mother Father Status:Active Comments: d. age 68 due to NE Heart Disease Status:Active Comments:Father Lymphoma Status:Active Comments:Mother Mother Status:Active Comments: d. age 47 colon cancer Colon Cancer Status:Active Comments:Mother Father Status:Active Comments: d. age 68 due to NE Heart Disease Status:Active Comments:Father Lymphoma Status:Active Comments:Mother Mother Status:Active Comments: d. age 47 colon cancer Colon Cancer Status:Active Comments:Mother Father Status:Active Comments: d. age 68 due to NE Heart Disease Status:Active Comments:Father Lymphoma Status:Active Comments:Mother Mother Status:Active Comments: d. age 47 colon cancer Colon Cancer Status:Active Comments:Mother Father Status:Active Comments: d. age 68 due to NE Heart Disease Status:Active Comments:Father Lymphoma Status:Active Comments:Mother Mother Status:Active Comments: d. age 47 colon cancer Relationship Condition Age at Onset Recorded Date/T marjorie Not Specified Malignant neoplasm of colon Unknown father Cardiac disease Unknown mother Malignant neoplasm Unknown brother Malignant neoplasm Unknown Advance Directives No Advanced Directives Records Found Advance Directive Response Recorded Date/ Time Living Will Yes September 12 11:22am Power of Drier Take Off Tender Yes September 12, 2019 11:22am Advance Directive Response Recorded Date/ Time Living Will Yes September 12 11:22am Do you have a Healthcare Power of Drier Take Off Tender? Yes September 12, 2019 11:22am Chief Complaint and Reason for Visit Chief Complaint 3 WKS POST OP - NO L ABS 2 WKS - REVIEW ONCOTYPE (SCANNED) CHEMO ED SCREENING Reason for Visit Primary cancer of ri ght female breast Primary cancer of right female breast Encounter for education Primary cancer of right female breast Chief Complaint 3 MO - LABS 3 MO - LABS ACUTE VISIT L BREAST TENDERNESS NO LABS MALIGNANT NEOPLASM OF RIGHT FEMALE BREAST Reason for Visit Primary cancer of ri ght female breast Left breast mass Primary cancer of right female breast Chief Complaint Admit Date 3 MO - NO LABS September 02, 2024 1:20pm LUMBAR SPINE November 29, 2024 2:0 0pm Room 2 November 29, 2024 2:1 3pm 3 MO - LABS December 05, 2024 12: 45pm 3 MO - LABS December 05, 2024 12: 46pm exertional dyspnea; h/o breast cancer Ap [facility] 2024 5:31pm Reason for Visit Admit Date Primary cancer of right female breast De cember 2023 1:20pm Degenerative disc disease, lumbar November 29, 2024 2:00pm Lumbar stenosis without neurogenic rodger ication November 29, 2024 2:00pm Exertional dyspnea December 05, 2024 12: 46pm Primary cancer of right female breast [facility] 2024 12:46pm Chief Complaint Admit Date 6 MO - LABS PRIOR(SCANNED) - REVIEW MAMM O/DEXA June 04, 2025 12:35pm Reason for Visit Admit Date Exertional dyspnea June 04, 2025 12:35pm Primary cancer of right female breast Se ptember 2024 12:35pm Chief Complaint Admit Date 6 MO - LABS PRIOR(SCANNED) - REVIEW MAMM O/DEXA June 04, 2025 12:35pm SCREENING June 04, 2025 2:25pm Additional Source Comments INFORMATION SOURCE (unrecogn ized section and content) DATE CREATED AUTHOR 08/13/2020 [facility] DATE CREATED AUTHOR AUTHOR'S ORGANIZ ATION 07/10/2022 [facility] DATE CREATED AUTHOR AUTHOR'S ORGANIZ ATION 06/25/2023 [facility] ([place]) DATE CREATED AUTHOR AUTHOR'S ORGANIZ ATION 06/11/2025 [facility] DATE CREATED AUTHOR AUTHOR'S ORGANIZ ATION 07/31/2025 [facility] Care Teams (unrecognized sec tion and content) Team Status: Active Member Role Status Dates Dr. Aan Julian MD Family Provider Active Dr. Nohemi Lemus MD Primary Care Provider Active Team Status: Inactive Member Role Status Dates Dr. Nohemi Lemus MD Primary Care Provider, Refer ring Provider Active Dr. Angel Frost MD Attending Provider Active Team Status: Inactive Member Role Status Dates Dr. Nohemi Lemus MD Primary Care Provider, Refer ring Provider Active Tina John NP, AUTOM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-C Attending Provider Active Team Status: Inactive Member Role Status Dates Dr. Nohemi Lemus MD Primary Care Provider Active Dr. Angel Frost MD Attending Provider, Referrin g Provider Active Team Status: Active Member Role Status Dates Dr. Nohemi Lemus MD Primary Care Provider Active Dr. Angel Frost MD Attending Provider, Referrin g Provider Active Team Status: Inactive Member Role Status Dates Dr. Nohemi Lemus MD Primary Care Provider Active Tina John AUTOM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, AUTOM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-C Attending Provider, Referring Provider Active Team Status: Active Member Role Status Dates Dr. Nohemi Lemus MD Primary Care Provider Active Team Status: Inactive Member Role Status Dates Dr. Nohemi Lemus MD Primary Care Provider Active Start: September 02, 2024 End: September 02, 2024 Dr. Nohemi Lemus MD Referring Provider Active Start: September 02, 2024 End: September 02, 2024 Tina John NP, AUTOM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-C Attending Provider Active Start: September 02, 2024 End: September 02, 2024 Team Status: Inactive Member Role Status Dates Dr. Nohemi Lemus MD Primary Care Provider Active Start: November 29, 2024 End: November 29, 2024 Dr. Nohemi Lemus MD Referring Provider Active Start: November 29, 2024 End: November 29, 2024 ANNA Good Attending Provider Active Star t: November 29, 2024 End: November 29, 2024 Team Status: Inactive Member Role Status Dates Dr. Nohemi Lemus MD Primary Care Provider Active Start: November 29, 2024 End: November 29, 2024 Dr. Jose Gilbert MD Attending Provider Active S tart: November 29, 2024 End: November 29, 2024 Team Status: Active Member Role Status Dates Dr. Nohemi Lemus MD Primary Care Provider Active Start: December 05, 2024 Dr. Angel Frost MD Attending Provider Active Start: December 05, 2024 Dr. Angel Frost MD Referring Provider Active Start: December 05, 2024 Team Status: Inactive Member Role Status Dates Dr. Nohemi Lemus MD Primary Care Provider Active Start: December 05, 2024 End: December 05, 2024 Dr. Nohemi Lemus MD Referring Provider Active Start: December 05, 2024 End: December 05, 2024 Tina John NP, AUTOM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-C Attending Provider Active Start: December 05, 2024 End: December 05, 2024 Team Status: Inactive Member Role Status Dates Dr. Nohemi Lemus MD Primary Care Provider Active Start: December 18, 2024 End: December 18, 2024 Tina John NP, AUTOM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-C Attending Provider Active Start: December 18, 2024 End: December 18, 2024 Tina John NP, NP-C Referring Provider Active Start: December 18, 2024 End: December 18, 2024 Team Status: Active Member Role/Relationship Status Dates Dr. Nohemi Lemus MD Primary care physician Activ e Team Status: Inactive Member Role/Relationship Status Dates Dr. Nohemi Lemus MD Primary care physician Activ e Start: June 04, 2025 End: June 04, 2025 Dr. Nohemi Lemus MD Referring Provider Active Start: June 04, 2025 End: June 04, 2025 Tina John NP, NP-C Attending physician Active Start: June 04, 2025 End: June 04, 2025 Team Status: Inactive Member Role/Relationship Status Dates Dr. Nohemi Lemus MD Primary care physician Activ e Start: June 04, 2025 End: June 04, 2025 Tina John NP, NP-C Attending physician Active Start: June 04, 2025 End: June 04, 2025 Tina John NP, NP-C Referring Provider Active Start: June 04, 2025 End: June 04, 2025 Goals (unrecognized section and content) Goals may be documented in a n alternate sectionGoals may be documented in an alternate sectionGoals may be documented in an alternate sectionGoals may be documented in an alternate sectionGoals may be documented in an alternate section FOR RECORDS PERTAINING TO PATIENTS WHO ARE OR HAVE BEEN ENROLLED IN A CHEMICAL DEPENDENCY/SUBSTANCEABUSE PROGRAM, SOME INFORMATION MAY BE OMITTED. This clinical summary was aggregated from multiple sources. Caution should be exercised in using it in the provision of clinical care. This summary normalizes information from multiple sources, and as a consequence, information in this document may materially change the coding, format and clinical context of patient data. In addition, data may be omitted in some cases. CLINICAL DECISIONS SHOULD BE BASED ON THE PRIMARY CLINICAL RECORDS. [employer] provides no warranty or guarantee of the accuracy or completeness of information in this document.
--- NOTE | 2025-09-03 18:31 | STRESSREP ---
Stress Test Report Exercise myocardial perfusion stress test. Date Test Performed: 09/03/2025 75-year-old lady with a history of aortic valve replacement. Stress protocol: Resting EKG demonstrates normal sinus rhythm with a rate of 65 bpm resting blood pressure is 114/70 mmHg. The patient exercised according to the regular [place] protocol for a total duration of 3 minutes attaining a maximum heart rate of 157 bpm which was 106% of maximum predicted heart rate; the maximum workload was 4.6 metabolic equivalents. At rest there were no ST or T wave changes noted to suggest ischemia and at peak exercise upsloping ST changes only were noted which did not meet the criteria for ischemia. No clinical angina was noted the test was terminated due to the target heart rate being achieved/fatigue. The peak blood pressure was 160/74 mmHg. Rate-pressure product was 18,300. Myocardial perfusion protocol. 14.7 mCi of technetium 99m sestamibi was injected at rest. The patient exercised according to regular [place] protocol for total duration of 3 minutes and at peak exercise 45 mCi of technetium 99m sestamibi was injected stress images were obtained stress and rest images were reconstructed in comparing the short axis vertical long and horizontal long axis. Gated images were also obtained. Perfusion SPECT analysis: Review of the stress images demonstrate normal uptake of tracer noted in all areas of the myocardium. The resting images similarly demonstrate normal uptake of tracer noted in all areas of the myocardium. No areas of reversibility are noted to suggest ischemia no previous infarct was noted. Gated SPECT analysis: The gated ejection fraction is 64%. Conclusion: Normal exercise myocardial perfusion stress test at a low workload.
== END | disposition home or self-care (01) ==
LOC: CVS 06:28
PROVIDERS: PCP Family Medicine; Referring Provider Internal Medicine Cardiovascular Disease; Visit Provider Internal Medicine Cardiovascular Disease
DX: I25.10 Atherosclerotic heart disease of native coronary artery without angina pectoris (principal); Z95.2 Presence of prosthetic heart valve
CPT/HCPCS: 78452; 93017; 93306; A9500; A4216